=== PATIENT | female | born 1950 | race Caucasian/White ===

== ENCOUNTER → 2018-12-03 14:22 | Outpatient (CLI) | payer MEDICARE, MEDICAID ==
[~2018-12-03 14:22] MED LIST: ALBUTEROL SULF8.5 GM INH; ATIVAN2 MG PO; CYMBALTA60 MG PO; DIOVAN40 MG PO; GLUCOPHAGE500 MG PO; LEVAQUIN750 MG PO; MOBIC7.5 MG PO; NEURONTIN 300300 MG PO; NORVASC5 MG PO; OMEPRAZOLE20 M1 PO; ULTRAM50 MG PO
[2019-01-31 02:44] VITALS: BMI 35.1
== END | disposition home or self-care (01) ==
LOC: D.MRI 14:22 → EDBD 15:00 → D.CT 16:00
PROVIDERS: ATTEND Orthopaedic Surgery
DX: S42.301A Unspecified fracture of shaft of humerus, right arm, initial encounter for closed fracture (principal); M75.121 Complete rotator cuff tear or rupture of right shoulder, not specified as traumatic

== ENCOUNTER → 2018-12-19 08:55 | Outpatient (CLI) | payer MEDICARE, MEDICAID ==
--- NOTE | 2018-12-19 11:48 | NUR ---
TIME OUT ON RT [facility] WAS 1123AM
== END | disposition home or self-care (01) ==
LOC: D.RAD 08:55
PROVIDERS: ATTEND Orthopaedic Surgery
DX: M75.121 Complete rotator cuff tear or rupture of right shoulder, not specified as traumatic (principal)

== ENCOUNTER 2019-01-03 20:36 | Inpatient (IN) | payer MEDICARE, MEDICAID ==
[~2019-01-03] VITALS: Ht 162.6 cm; Wt 94.1 kg
[2019-01-03] MEDS ORDERED: NEURONTIN 300300 MG PO (20:49)
[2019-01-03] MEDS ORDERED: OMEPRAZOLE20 M1 PO (20:49)
[2019-01-03] MEDS ORDERED: MOBIC7.5 MG PO (20:49)
[2019-01-03] MEDS ORDERED: CYMBALTA60 MG PO (20:49)
[2019-01-03] MEDS ORDERED: ATIVAN2 MG PO (20:50)
[2019-01-03] MEDS ORDERED: DIOVAN40 MG PO (20:50)
[2019-01-03] MEDS ORDERED: GLUCOPHAGE500 MG PO (20:54)
[2019-01-03 21:05] LABS: BASOPHILS 0.1 % (0-2); EOSINOPHILS 0.1 % (0-7); HEMATOCRIT 34.7 % (36.0-48.0); HEMOGLOBIN 11.2 g/dL (12-16); IMMATURE GRANULOCYTES 0.6 % (0-5); LYMPHOCYTES 11.1 % (15-50); MCHC 32.3 g/dL (31.0-37.0); MCV 83.6 fL (80.0-100.0); MEAN PLATELET VOLUME 9.1 fL (7.4-10.4); MONOCYTES 7.4 % (2-11); NEUTROPHILS 80.7 % (40-80); PLATELET COUNT 289 10x3/uL (130-400); RBC 4.15 10x6/uL (4.00-5.40); RDW 16.2 % (11.5-14.5); WBC 19.4 10x3/uL (4.8-10.8)
[2019-01-03 21:13] LABS: PROTIME 12.7 SECONDS (11.6-15.0)
[2019-01-03 21:15] LABS: ALKALINE PHOSPHATASE 63 U/L (46-116); ALT (SGPT) 18 U/L (10-68); BILIRUBIN - TOTAL 0.46 mg/dL (0.2-1.3); CALC OSMOLALITY 267 mosm/kg (275-300); CALCIUM 9.1 mg/dL (8.5-10.1); CARBON DIOXIDE 26.6 mmol/L (21.0-32.0); CHLORIDE - SERUM 96 mmol/L (98-107); GLUCOSE 166 mg/dL (74-106); POTASSIUM - SERUM 4.2 mmol/L (3.5-5.1); PROTEIN - SERUM 6.9 g/dL (6.4-8.2); SODIUM 131 mmol/L (136-145); UREA NITROGEN 15 mg/dL (7-18); eGFR NON AFRICAN AMERICAN 59 mL/min (90-120)
[2019-01-03 21:26] LABS: CREATINE KINASE 41 UL (21-215); MAGNESIUM - SERUM 1.4 mg/dL (1.8-2.4); TROPONIN-I < 0.017 ng/mL (0.000-0.060)
--- NOTE | 2019-01-04 01:05 | NUR ---
ARIVED VIA WC TO 2103 AND TO BED LOW AND LOCKED CALL LIGHT PROVIDED DENIES CP AT THIS TIME CARDIACS WHERE NEG IV SALINE LOCK WITH LEVAQUIN HUNG WILL CONTINUE TO RUN LCTA SKIN WARM AND DRY PT STATES SHE IS A DM WITH NO INSULINE USAGE RN TO ASSESS....VS 121/55 89 18 100% ON 2L
[2019-01-04 03:31] VITALS: BP 120/77; Ht 162.6 cm; Wt 94.1 kg
[2019-01-04 04:00] VITALS: BP 136/75
--- NOTE | 2019-01-04 04:58 | NUR ---
ORTO VS LYING 99/56 87 97% SITTING 136/75 92 100% STANDING 104/64 98 99%
[2019-01-04 05:07] LABS: BASOPHILS 0.1 % (0-2); EOSINOPHILS 0.4 % (0-7); HEMATOCRIT 30.9 % (36.0-48.0); HEMOGLOBIN 9.9 g/dL (12-16); IMMATURE GRANULOCYTES 0.4 % (0-5); LYMPHOCYTES 13.8 % (15-50); MCV 84.2 fL (80.0-100.0); MEAN PLATELET VOLUME 9.3 fL (7.4-10.4); MONOCYTES 7.1 % (2-11); NEUTROPHILS 78.2 % (40-80); PLATELET COUNT 242 10x3/uL (130-400); RBC 3.67 10x6/uL (4.00-5.40); RDW 16.7 % (11.5-14.5)
[2019-01-04 05:52] LABS: CALC OSMOLALITY 272 mosm/kg (275-300); CALCIUM 8.7 mg/dL (8.5-10.1); CARBON DIOXIDE 29.4 mmol/L (21.0-32.0); CHLORIDE - SERUM 100 mmol/L (98-107); CKMB 1.2 U/L (0.0-3.6); CREATINE KINASE 36 UL (21-215); CREATININE - SERUM 0.7 mg/dL (0.6-1.3); GLUCOSE 100 mg/dL (74-106); MAGNESIUM - SERUM 1.6 mg/dL (1.8-2.4); PHOSPHOROUS 2.3 mg/dL (2.5-4.9); POTASSIUM - SERUM 3.9 mmol/L (3.5-5.1); SODIUM 136 mmol/L (136-145); TROPONIN-I < 0.017 ng/mL (0.000-0.060); UREA NITROGEN 16 mg/dL (7-18); eGFR NON AFRICAN AMERICAN 89 mL/min (90-120)
--- NOTE | 2019-01-04 06:42 | NUR ---
PT REFUSED SCD I ATTEMPTED TO EDUCATE PT TO GET UP AND AMBULATE AND SIT IN CHAIR IF NOT USING
[2019-01-04 08:38] VITALS: BP 99/73
[2019-01-04 12:08] LABS: CREATINE KINASE 28 UL (21-215); TROPONIN-I < 0.017 ng/mL (0.000-0.060)
[2019-01-04 12:20] VITALS: BP 120/76
[2019-01-04 16:56] VITALS: BP 129/60
--- NOTE | 2019-01-04 17:07 | NUR ---
PT REQUESTED ONLY 3 UNITS AFTER 290 BLOOD SUGAR SINCE SHE DOES NOT TYPICALLY USE INSULIN AND HAD JUST ATE WHEN I HAD TAKEN IT (THEY BROUGHT SUPPER EARLIER THAN USUAL). PT IS RESTING WITH HER , HAPPY AND NO COMPLAINTS. DRY COUGH NOTED. CL IN REACH, SRX2.
[2019-01-04 18:07] LABS: CKMB 0.7 U/L (0.0-3.6); CREATINE KINASE 22 UL (21-215)
[2019-01-04 18:08] LABS: TROPONIN-I < 0.017 ng/mL (0.000-0.060)
--- NOTE | 2019-01-04 18:15 | NUR ---
I have reviewed this patient and I concur with the Shift Assessment completed by the Licensed Practical Nurse today this shift.
--- NOTE | 2019-01-04 19:06 | NUR ---
GREETED PATIENT AND INTRODUCED MYSELF. PATIENT IS LAYING IN BED WATCHING TV. O2 AT 2L VIA NC. RESPIRATIONS EVEN. NO S/S OF DISTRESS. DENIES ANY NEEDS AT THIS TIME. REMINDED PT. THAT SHE WILL BE NPO AT MIDNITE AND WILL BE ABLE TO ONLY TAKE MEDICATIONS WITH A SIP OF WATER. PT. UNDERSTOOD TEACHING. CALL LIGHT IN REACH.
[2019-01-04 20:00] VITALS: BP 132/69
[2019-01-05] VITALS: BP 143/68
[2019-01-05 00:08] LABS: CKMB 0.4 U/L (0.0-3.6); CREATINE KINASE 20 UL (21-215)
[2019-01-05 00:09] LABS: TROPONIN-I < 0.017 ng/mL (0.000-0.060)
--- NOTE | 2019-01-05 02:22 | NUR ---
PATIENT RESTING QUIETLY IN SUPINE POSITION. HOB AT 30 DEGREES. O2 AT 2L IN USE VIA NC. RESPIRATIONS EVEN. NO S/S OF DISTRESS. SR UP X 2. BED IN LOWEST POSITION. CALL LIGHT IN REACH.
--- NOTE | 2019-01-05 02:41 | NUR ---
DC PERIPHERAL IV IN LEFT FOREARM. PATIENT TOLERATED PROCEDURE.
--- NOTE | 2019-01-05 02:52 | NUR ---
APPLIED ICE PACK AND ELEVATED LEFT ARM WHERE IV HAD INFILTRATED. PATIENT STATES THAT THE SITE DOESNT HURT ONLY ITCHES. WCTM.
--- NOTE | 2019-01-05 03:42 | NUR ---
NEW PERIPHERAL IV STARTED IN RIGHT UPPER CHEST. THIRD ATTEMPT SUCCESSFUL.
--- NOTE | 2019-01-05 03:42 | NUR ---
NEW PERIPHERAL IV STARTED IN LEFT UPPER CHEST. SUCCESSFUL ON THIRD ATTEMPT BY SKI BINDING FITTER AND REPAIRER. PATIENT TOLERATED PROCEDURE.
[2019-01-05 04:00] VITALS: BP 135/63
[2019-01-05 05:02] LABS: BASOPHILS 0.1 % (0-2); EOSINOPHILS 0.8 % (0-7); HEMATOCRIT 30.8 % (36.0-48.0); HEMOGLOBIN 9.7 g/dL (12-16); IMMATURE GRANULOCYTES 0.3 % (0-5); LYMPHOCYTES 13.8 % (15-50); MCHC 31.5 g/dL (31.0-37.0); MCV 85.8 fL (80.0-100.0); MEAN PLATELET VOLUME 9.4 fL (7.4-10.4); MONOCYTES 5.6 % (2-11); NEUTROPHILS 79.4 % (40-80); PLATELET COUNT 237 10x3/uL (130-400); RBC 3.59 10x6/uL (4.00-5.40); RDW 16.7 % (11.5-14.5); WBC 11.4 10x3/uL (4.8-10.8)
[2019-01-05 05:18] LABS: ALBUMIN 2.7 g/dL (3.4-5.0); ALKALINE PHOSPHATASE 62 U/L (46-116); BILIRUBIN - TOTAL 0.27 mg/dL (0.2-1.3); CALCIUM 8.7 mg/dL (8.5-10.1); CARBON DIOXIDE 29.3 mmol/L (21.0-32.0); CHLORIDE - SERUM 100 mmol/L (98-107); CREATININE - SERUM 0.6 mg/dL (0.6-1.3); GLUCOSE 135 mg/dL (74-106); MAGNESIUM - SERUM 1.6 mg/dL (1.8-2.4); PHOSPHOROUS 2.8 mg/dL (2.5-4.9); POTASSIUM - SERUM 4.1 mmol/L (3.5-5.1); PROTEIN - SERUM 6.6 g/dL (6.4-8.2); SODIUM 136 mmol/L (136-145); eGFR NON AFRICAN AMERICAN > 90 mL/min (90-120)
[2019-01-05 05:21] LABS: ALT (SGPT) 26 U/L (10-68); CALC OSMOLALITY 272 mosm/kg (275-300); UREA NITROGEN 11 mg/dL (7-18)
--- NOTE | 2019-01-05 06:25 | NUR ---
PATIENT AWAKE AND RESTING QUIETLY IN BED. DENIES ANY NEEDS AT THIS TIME. CALL LIGHT IN REACH.
[2019-01-05 08:20] VITALS: BP 155/96
--- NOTE | 2019-01-05 14:21 | NUR ---
I have reviewed this patient and I concur with the Shift Assessment completed by the Licensed Practical Nurse today this shift.
[2019-01-05 16:45] VITALS: BP 153/75
[2019-01-05 18:18] LABS: % SATURATION 5 % (15-55); IRON 22 ug/dl (35-150); TOTAL IRON BIND CAPACITY 388 ug/dl (260-445); UNSAT IRON BIND CAPACITY 366 ug/dl (150-375)
--- NOTE | 2019-01-05 18:40 | NUR ---
PT WAS UPSET TAHT CARDIOLOGY HAD NOT READ/INTERPRETED HER RESULTS YET FROM [facility] STRESS TEST. I EXPLAINED THE SITUATION AND SHE FEELS BETTER NOW. UNDERSTANDS SHE WILL LIKELY LEAVE TOMORROW. PT IS HAPPY AND CURRENTLY RESTING IN BED. NO COMPLAINTS/CONCERNS/QUESTIONS AT THIS TIME. CL IN REACH, SRX2
--- NOTE | 2019-01-05 19:45 | NUR ---
REPORT RECIEVED AND ROUNDING COMPLETE. PATIENT LAYING IN BED WATCH TV. PATIENT HAS A LEFT CHEST PIV THAT IS SALINE LOCKED. DRESSING C/D/I AND SWAP CAP IN PLACE. PATIENT STATES SHE HAS NO NEEDS AT THIS TIME. CALL LIGHT WITHIN REACH AND BED IN LOWEST POSITION. PATIENT IS SHOWING NO S/SX OF DISTRESS AT THIS TIME.
[2019-01-05 20:00] VITALS: BP 151/84
[2019-01-06] VITALS: BP 154/89; BP 163/88
--- NOTE | 2019-01-06 02:25 | NUR ---
PATIENT LAYING IN BED IN SUPINE POSITION LOOKING AT HER CELL PHONE. PATIENT STATES NO NEEDS AT THIS TIME. CALL LIGHT WITHIN REACH.
--- NOTE | 2019-01-06 03:36 | NUR ---
I have reviewed this patient and I concur with the Shift Assessment completed by the Licensed Practical Nurse today this shift.
[2019-01-06 05:06] LABS: BASOPHILS 0.2 % (0-2); EOSINOPHILS 2.3 % (0-7); HEMATOCRIT 31.9 % (36.0-48.0); HEMOGLOBIN 9.7 g/dL (12-16); IMMATURE GRANULOCYTES 0.2 % (0-5); LYMPHOCYTES 19.8 % (15-50); MCH 26.3 pg (26.0-34.0); MCHC 30.4 g/dL (31.0-37.0); MCV 86.4 fL (80.0-100.0); MEAN PLATELET VOLUME 9.1 fL (7.4-10.4); MONOCYTES 6.9 % (2-11); NEUTROPHILS 70.6 % (40-80); PLATELET COUNT 233 10x3/uL (130-400); RBC 3.69 10x6/uL (4.00-5.40); RDW 16.7 % (11.5-14.5)
[2019-01-06 05:21] LABS: ALBUMIN 2.7 g/dL (3.4-5.0); ALKALINE PHOSPHATASE 65 U/L (46-116); ALT (SGPT) 23 U/L (10-68); BILIRUBIN - TOTAL 0.24 mg/dL (0.2-1.3); CALC OSMOLALITY 275 mosm/kg (275-300); CALCIUM 8.6 mg/dL (8.5-10.1); CARBON DIOXIDE 29.9 mmol/L (21.0-32.0); CHLORIDE - SERUM 102 mmol/L (98-107); CREATININE - SERUM 0.6 mg/dL (0.6-1.3); GLUCOSE 125 mg/dL (74-106); MAGNESIUM - SERUM 1.8 mg/dL (1.8-2.4); POTASSIUM - SERUM 4.3 mmol/L (3.5-5.1); PROTEIN - SERUM 6.6 g/dL (6.4-8.2); SODIUM 137 mmol/L (136-145); eGFR NON AFRICAN AMERICAN > 90 mL/min (90-120)
[2019-01-06 05:25] LABS: PHOSPHOROUS 3.7 mg/dL (2.5-4.9); UREA NITROGEN 14 mg/dL (7-18)
--- NOTE | 2019-01-06 07:17 | NUR ---
PT ASLEEP, DID NOT WAKE I ENTERED, DID NOT FURTHER DISTURB AT THIS TIME. CL IN REACH, SRX2. NO FAMILY AT BEDSIDE AT THS TIME, SAID HE'D BE BACK LATER.
[2019-01-06 08:44] VITALS: BP 138/78
[2019-01-06] MEDS ORDERED: LEVAQUIN750 MG PO (10:33)
[2019-01-06] MEDS ORDERED: ALBUTEROL SULF8.5 GM INH (10:35)
--- NOTE | 2019-01-06 11:39 | NUR ---
I/V OUT TIP INTACT
--- NOTE | 2019-01-06 12:00 | NUR ---
I have reviewed this patient and I concur with the Shift Assessment completed by the Licensed Practical Nurse today this shift.
--- NOTE | 2019-01-06 12:19 | NUR ---
PT ESCORTED OUT VIA WHEELCHAIR TO HUSBANDS POV.
--- NOTE | 2019-01-07 08:27 | MORECARE ---
CASE MANAGEMENT DISCHARGE SUMMARY PATIENT: THAI MOREIRA UNIT: [id number] ADM DATE: 01/04/19 AGE: 68 : 52 SEX: F ROOM/BED: D.2104 AUTHOR: CLAIRE JACQUES PHYSICIAN: REFERRING PHYSICIAN: ULISES BENTLEY MD DATE OF SERVICE: 01/07/19 Discharge Plan Patient Name: THAI MOREIRA Facility: [facility]:[place] : 1950 Planned Disposition: Home Anticipated Discharge Date: 01/06/19 Discharge Date: 01/06/2019 Expected LOS: 2 Initial Reviewer: [email or web address] Initial Review Date: 01/07/2019 Generated: 01/07/19 9:27 am Coverage Notice Reviewer: [email or web address] [employer] Notice Issued Date-Time: 01/06/2019 11:00 Notice Type: IM Discharge Notice Notice Delivered To: Patient Relationship to Patient: Self Guard Range Name: Delivery Method: HAND - Hand Delivered Susan Days: Prior Verbal Notification: Recipient Understood Notice: Yes Recipient Signature: Yes Med Rec Note Co-signed by Attending: Coverage Notice Comment: Patient Name: THAI MOREIRA Page [phone] at 0827 All edits/amendments must be made on the electronic document DICTATION DATE: 01/07/19825 ACCOUNTS PAYABLE REPRESENTATIVE: BRITTANY 01/07/19825 RPT#: [id number] DC DATE:01/06/19 STATUS: DIS IN [facility] [address] [place] [address] END OF REPORT
--- NOTE | 2019-01-07 18:38 | CN ---
PATIENT NAME:THAI DYSON MEDICAL RECORD: [id number] : 54 LOCATION:D. D.2104 ADMIT DATE: 01/04/19 ACCOUNT: [id number] CONSULTING PHYSICIAN: OSEI PROCTOR MD REFERRING PHYSICIAN: ULISES BENTLEY MD DATE OF CONSULTATION: 01/04/2019 ADMITTING DIAGNOSES: 1. Chest pain compatible with angina. 2. Shortness of breath. 3. Hypertension. 4. Noninsulin dependent diabetes. 5. Obesity. HISTORY OF PRESENT ILLNESS: Mrs. Dyson presents with 2 weeks of increasing chest pain and shortness of breath. Initially, she was felt to have pneumonia; however, Pulmonary does not think that this is an infectious process. Her chest discomfort is a pretty classic anginal discomfort, heaviness across the anterior chest. No real radiation, worse in the morning, actually improved some during the day. Her troponins are normal. Her EKG is with no significant ST-T abnormalities. She does have a family history of coronary artery disease. PHYSICAL EXAMINATION: GENERAL APPEARANCE: Well-nourished, well-developed, appears stated age. Level of distress, comfortable. PSYCHIATRIC: Mental status, alert, normal affect. Orientation, oriented to time, place and person. EYES: Lids and conjunctiva, noninjected. No discharge, no pallor. ENT: Lips, teeth, gums, normal dentition. Oropharynx, no cyanosis, no pallor. NECK: Carotid arteries, bilateral normal upstroke, no bruits, no thrills. JUGULAR VEINS: No jugular venous pressure or distention. CERVICAL LYMPH NODES: Nontender, nonenlarged. THYROID: Not enlarged. Nontender. No nodules. LUNGS: Respiratory effort, unlabored. CHEST: Normal curvature. No thoracic deformity. No chest wall tenderness. Percussion, resonant. Auscultation, clear. No wheezes, no rales, no rhonchi. CARDIOVASCULAR: Precordial exam, nondisplaced. No heaves or pericardial thrills. Rate and rhythm, regular. Heart sounds, normal S1, normal S2. No S3, no gallop, no rub. Systolic murmur, not heard. Diastolic murmur, not heard. EXTREMITIES: No cyanosis, no edema. Peripheral pulses, full and equal in all extremities, except as noted. No bruits appreciated. ABDOMEN: Soft, nondistended. Normal aorta. No bruit. Nontender. No masses. Liver, nontender, no hepatomegaly. Spleen, nontender, no splenomegaly. MUSCULOSKELETAL: No joint tenderness. No joint swelling. No erythema. NEUROLOGICAL: Normal gait, normal strength, normal tone. SKIN: Warm and dry. OVERALL IMPRESSION: Chest discomfort in an escalating fashion. We will risk stratify with stress testing Cardiolite imaging. Further care depends upon findings of the stress test. TRANSINT:[id number] Voice Confirmation ID: [id number] DOCUMENT ID: [id number] CONSULT REPORT [id number] THAI DYSON, OSEI ELIZONDO at 1838 CC: [id number] DICTATION DATE: 01/04/19 1217 COMPUTER DRAFTER: 01/04/19 1250 DIS IN 01/06/19 [facility] [address] [place] [address]
[2019-01-28] MEDS ORDERED: NORVASC5 MG PO (14:58)
[2019-01-28] MEDS ORDERED: ULTRAM50 MG PO (14:58)
== END 2019-01-06 12:19 | disposition home or self-care (01) | DRG 194 ==
LOC: D.ER 20:36 → D.M2 01-04 00:08
PROVIDERS: Emergency Medicine; Family Medicine Adult Medicine; ADMIT Family Medicine; ATTEND Family Medicine
DX: J18.1 Lobar pneumonia, unspecified organism (principal); I20.0 Unstable angina; E87.1 Hypo-osmolality and hyponatremia; E11.65 Type 2 diabetes mellitus with hyperglycemia; I10 Essential (primary) hypertension; D64.9 Anemia, unspecified; E66.01 Morbid (severe) obesity due to excess calories; Z68.35 Body mass index [BMI] 35.0-35.9, adult

== ENCOUNTER → 2019-01-10 15:22 | Outpatient (CLI) | payer MEDICARE, MEDICAID ==
[2019-01-04 03:31] VITALS: BMI 35.8
[~2019-01-10 15:22] MED LIST changes: -NORVASC5 MG PO; -ULTRAM50 MG PO
[2019-01-10 15:39] LABS: BASOPHILS 0.6 % (0-2); EOSINOPHILS 1.2 % (0-7); HEMATOCRIT 36.9 % (36.0-48.0); IMMATURE GRANULOCYTES 0.4 % (0-5); LYMPHOCYTES 24.8 % (15-50); MCHC 32.5 g/dL (31.0-37.0); MCV 82.9 fL (80.0-100.0); MEAN PLATELET VOLUME 8.9 fL (7.4-10.4); MONOCYTES 12.2 % (2-11); NEUTROPHILS 60.8 % (40-80); RBC 4.45 10x6/uL (4.00-5.40); RDW 16.4 % (11.5-14.5); WBC 6.7 10x3/uL (4.8-10.8)
[2019-01-10 15:51] LABS: PLATELET COUNT 307 10x3/uL (130-400)
== END | disposition home or self-care (01) ==
LOC: D.LAB 15:22
PROVIDERS: ATTEND Family Medicine
DX: J18.9 Pneumonia, unspecified organism (principal)

== ENCOUNTER 2019-01-30 10:25 | Day surgery (SDC) | payer MEDICARE, MEDICAID ==
[2019-01-28 15:25] LABS: BASOPHILS 0.5 % (0-2); EOSINOPHILS 1.6 % (0-7); HEMATOCRIT 35.9 % (36.0-48.0); HEMOGLOBIN 11.3 g/dL (12-16); IMMATURE GRANULOCYTES 0.4 % (0-5); LYMPHOCYTES 23.7 % (15-50); MCH 27.4 pg (26.0-34.0); MCHC 31.5 g/dL (31.0-37.0); MCV 87.1 fL (80.0-100.0); MEAN PLATELET VOLUME 9.4 fL (7.4-10.4); MONOCYTES 9.6 % (2-11); NEUTROPHILS 64.2 % (40-80); PLATELET COUNT 268 10x3/uL (130-400); RBC 4.12 10x6/uL (4.00-5.40); RDW 17.6 % (11.5-14.5); WBC 8.3 10x3/uL (4.8-10.8)
[2019-01-28 16:11] LABS: CALC OSMOLALITY 274 mosm/kg (275-300); CALCIUM 9.2 mg/dL (8.5-10.1); CARBON DIOXIDE 28.6 mmol/L (21.0-32.0); CHLORIDE - SERUM 99 mmol/L (98-107); CREATININE - SERUM 0.7 mg/dL (0.6-1.3); GLUCOSE 126 mg/dL (74-106); SODIUM 137 mmol/L (136-145); UREA NITROGEN 10 mg/dL (7-18); eGFR NON AFRICAN AMERICAN 89 mL/min (90-120)
[~2019-01-30] VITALS: Ht 162.6 cm; Wt 92.7 kg
[~2019-01-30 10:25] MED LIST changes: +NORVASC5 MG PO; +ULTRAM50 MG PO
[2019-01-30 10:49] VITALS: BP 131/66; BMI 35.2
--- NOTE | 2019-01-30 17:23 | NUR ---
1725 PT UP TO BATHROOM WITH ASSIST. VOIDED ON TOILET. BACK IN BED AND O2 SAT 80% RESP CALLED FOR TREATMENT
--- NOTE | 2019-01-30 17:28 | NUR ---
1730 RESP HERE TO GIVE TREATMENT
--- NOTE | 2019-01-30 18:31 | NUR ---
1830 PT UP TO BATHROOM PCXR DONE AND TOLERATED WELL
--- NOTE | 2019-01-30 18:44 | NUR ---
1845 REPORT GIVEN KITTY
--- NOTE | 2019-01-30 19:07 | NUR ---
1814 DR HA NOTIFIED IN OR THAT PT UNABLE TO MAINTAIN O2 SAT ON RA. EVEN AFTER RESP TX. ORDERS TO ADMIT PT TO HOSPITALIST METALLURGY LABORATORY TECHNICIAN. SPOKE WITH DR ALVARES AND SAID TO GET A PCXR AND TRANSFER TO ROOM ON MED SURGERY AND HE WILL WRITE ORDERS. PT TRANSFERED AFTER REPORT GIVEN TO JOSE ON 2 LITERS NC. SMALL AMT OF DRAINAGE NOTED MARKED AND NOTIFIED JOSE. SLING MAINTAINED AND POST OP INSTRUCTIONS GIVEN TO FRIEND AND PT.
--- NOTE | 2019-01-30 20:10 | NUR ---
AROUSES EASILY TO VERBAL STIMULT. ALERT.ORIENTED.NO COMPLAINTS VOICED. RESP UNLABORED. O2 @ 2L PER NC ON. DRESSING TO RIGHT SHOULDER WITH DRAINAGE NOTED. ICE PACK ON. SLING INTACT. CL IN REACH
--- NOTE | 2019-01-30 21:57 | NUR ---
IV INFILTRATED TO LEFT WRIST. REMOVED WITH TIP INTACT. PATIENT REFUSES TO HAVE ANOTHER ONE STARTED. STATES GOING HOME IN THE MORNING ANYWAY. REQUEST PERLA HOSE BE REMOVED AND SCD'S NOT BE APPLIED DUE TO PTSD.CL IN REACH
[2019-01-30 22:44] VITALS: BP 146/50
[2019-01-31 02:44] VITALS: BP 146/50; Ht 162.6 cm; Wt 92.7 kg
--- NOTE | 2019-01-31 04:40 | NUR ---
I have reviewed this patient and I concur with the Shift Assessment completed by the Licensed Practical Nurse today this shift.
[2019-01-31 05:04] VITALS: BP 131/80
[2019-01-31 05:14] LABS: BASOPHILS 0 % (0-2); EOSINOPHILS 0 % (0-7); HEMOGLOBIN 9.6 g/dL (12-16); IMMATURE GRANULOCYTES 0.2 % (0-5); LYMPHOCYTES 11.9 % (15-50); MCV 87.3 fL (80.0-100.0); MEAN PLATELET VOLUME 9.4 fL (7.4-10.4); NEUTROPHILS 79.9 % (40-80); PLATELET COUNT 259 10x3/uL (130-400); RBC 3.55 10x6/uL (4.00-5.40); RDW 17.9 % (11.5-14.5)
[2019-01-31 05:29] LABS: CALC OSMOLALITY 277 mosm/kg (275-300); CALCIUM 7.6 mg/dL (8.5-10.1); CARBON DIOXIDE 28.7 mmol/L (21.0-32.0); CHLORIDE - SERUM 101 mmol/L (98-107); CREATININE - SERUM 0.5 mg/dL (0.6-1.3); GLUCOSE 165 mg/dL (74-106); MAGNESIUM - SERUM 1.7 mg/dL (1.8-2.4); PHOSPHOROUS 2.7 mg/dL (2.5-4.9); POTASSIUM - SERUM 4.7 mmol/L (3.5-5.1); SODIUM 138 mmol/L (136-145); UREA NITROGEN 7 mg/dL (7-18); eGFR NON AFRICAN AMERICAN > 90 mL/min (90-120)
--- NOTE | 2019-01-31 07:52 | NUR ---
ALERT AND ORIENTED. LUNGS CLEAR BILATERALLY IN ALL [place]. HEART SOUNDS S1 AND S2 HEARD IN ALL [place]. BOWEL SOUNDS ACTIVE X 4. DRSG INTACT TO RIGHT SHOULDER. SKIN INTACT WITHOUT REDNESS. NO IV. INFILTRATED LAST NIGHT. DOES NOT WANT NEW IV D/T POSSIBLE D/C TODAY. DENIES PAIN. DENIES NEEDS. BED LOW. CALL VERNON AND PERSONAL ITEMS IN REACH. WILL CONTINUE TO MONITOR.
[2019-01-31 09:37] VITALS: BP 135/67
--- NOTE | 2019-01-31 11:27 | NUR ---
RESTING IN BED. DENIES PAIN. DENIES NEEDS. WILL CONTINUE TO MONITOR.
[2019-01-31 13:07] VITALS: BP 117/53
--- NOTE | 2019-01-31 14:25 | NUR ---
DISCHARGE EDUCATION PROVIDED BOTH WRITTEN AND VERBAL. VERBALIZED UNDERSTANDING. DENIES FURTHER QUESTIONS. NO IV TO REMOVE. EDUCATION PROVIDED ON NEED TO CHANGE DRSG IN THREE DAYS TO RIGHT SHOULDER. NEW DRSG PROVIDED. DENIES FURTHER NEEDS. DISCHARGED HOME WITH WITH ALL BELONGINGS.
== END 2019-01-31 14:28 | disposition home or self-care (01) ==
LOC: D.MS 10:25 → D.OPS 10:25 → D.PAN 12:45 → D.OPS 12:45 → D.MS 18:47 → D.OPS 01-31 14:28
PROVIDERS: Family Medicine; ATTEND Orthopaedic Surgery
DX: M65.811 Other synovitis and tenosynovitis, right shoulder (principal); M13.811 Other specified arthritis, right shoulder; M75.41 Impingement syndrome of right shoulder; M75.111 Incomplete rotator cuff tear or rupture of right shoulder, not specified as traumatic; S43.431A Superior glenoid labrum lesion of right shoulder, initial encounter; X58.XXXA Exposure to other specified factors, initial encounter

== ENCOUNTER → 2019-04-01 15:07 | Outpatient (CLI) | payer MEDICARE, MEDICAID ==
[2019-01-31 02:44] VITALS: BMI 35.1
[~2019-04-01 15:07] MED LIST changes: +ATIVAN1 MG PO; +CELEXA20 MG PO; +FOLIC ACID1 MG PO; +FUROSEMIDE20 MG PO; +HYDROCODONE-A1 UDTA2 PO; +LISINOPRIL-HCT1 EAC7 PO
== END | disposition home or self-care (01) ==
LOC: D.US 15:00
PROVIDERS: ATTEND Orthopaedic Surgery
DX: M25.562 Pain in left knee (principal)

== ENCOUNTER → 2019-04-01 15:08 | Outpatient (CLI) | payer MEDICARE, MEDICAID ==
[2019-01-31 02:44] VITALS: BMI 35.1
[2019-04-01 16:12] LABS: BASOPHILS 0.3 % (0-2); EOSINOPHILS 0.7 % (0-7); HEMATOCRIT 32.7 % (36.0-48.0); HEMOGLOBIN 9.9 g/dL (12-16); IMMATURE GRANULOCYTES 0.3 % (0-5); LYMPHOCYTES 16.1 % (15-50); MCH 25.7 pg (26.0-34.0); MCHC 30.3 g/dL (31.0-37.0); MCV 84.9 fL (80.0-100.0); MEAN PLATELET VOLUME 8.8 fL (7.4-10.4); MONOCYTES 7.5 % (2-11); NEUTROPHILS 75.1 % (40-80); RBC 3.85 10x6/uL (4.00-5.40); RDW 17.7 % (11.5-14.5); WBC 11.8 10x3/uL (4.8-10.8)
[2019-04-01 16:28] LABS: PLATELET COUNT 322 10x3/uL (130-400)
[2019-04-01 18:10] LABS: ERYTHROCYTE SEDIMENTATION RATE 15 mm/hr (0-30)
[2019-04-01 18:58] LABS: NEUT - BF 53 %
[2019-04-01 18:59] LABS: EOS BF 2 %; MACROPHAGES BF 9 %; MESOTHELIALS BF 1 %
== END | disposition home or self-care (01) ==
LOC: D.LABREF 15:08
PROVIDERS: ATTEND Orthopaedic Surgery
DX: M25.562 Pain in left knee (principal)

== ENCOUNTER → 2019-04-11 13:39 | Outpatient (CLI) | payer MEDICARE, MEDICAID ==
[2019-01-31 02:44] VITALS: BMI 35.1
== END | disposition home or self-care (01) ==
LOC: D.MRI 13:39
PROVIDERS: ATTEND Orthopaedic Surgery
DX: M25.562 Pain in left knee (principal)

== ENCOUNTER 2019-05-08 05:27 | Inpatient (IN) | payer MEDICARE, MEDICAID ==
[2019-05-03 09:52] LABS: BASOPHILS 0.4 % (0-2); EOSINOPHILS 1.3 % (0-7); HEMATOCRIT 41.9 % (36.0-48.0); IMMATURE GRANULOCYTES 0.5 % (0-5); LYMPHOCYTES 26.9 % (15-50); MCH 28.3 pg (26.0-34.0); MCV 91.1 fL (80.0-100.0); MEAN PLATELET VOLUME 9.6 fL (7.4-10.4); MONOCYTES 9.1 % (2-11); NEUTROPHILS 61.8 % (40-80); PLATELET COUNT 286 10x3/uL (130-400); RDW 18.9 % (11.5-14.5); WBC 8.5 10x3/uL (4.8-10.8)
[2019-05-03 10:12] LABS: CALC OSMOLALITY 269 mosm/kg (275-300); CALCIUM 9.6 mg/dL (8.5-10.1); CARBON DIOXIDE 29.7 mmol/L (21.0-32.0); CHLORIDE - SERUM 99 mmol/L (98-107); CREATININE - SERUM 0.8 mg/dL (0.6-1.3); GLUCOSE 120 mg/dL (74-106); SODIUM 135 mmol/L (136-145); UREA NITROGEN 10 mg/dL (7-18); eGFR NON AFRICAN AMERICAN 76 mL/min (90-120)
[2019-05-08] VITALS (17 sets, daily range): BP systolic 76–154; BP diastolic 45–89; Ht 162.6 cm; Wt 94.1 kg
[~2019-05-08] VITALS: Ht 162.6 cm; Wt 94.1 kg
[~2019-05-08 05:27] MED LIST changes: -FOLIC ACID1 MG PO; -HYDROCODONE-A1 UDTA2 PO
--- NOTE | 2019-05-08 10:03 | NUR ---
9784 DR CAMERON HERE TO EVALUATE LOW SBP. ORDERS FOR FLUID CHALLENGE RECIEVED.
--- NOTE | 2019-05-08 10:16 | NUR ---
TOLERATED FLUID BOLUS WELL SBP >100 MEETS ANESTHESIA DISCHARGE CRITERIA
--- NOTE | 2019-05-08 11:00 | NUR ---
PATIENT BP DROPPING DOWN. BP WHEN PATIENT GOT HERE 85/60. WAS TOLD THAT SHE RECIEVED FLUID BOLUS IN RR. WILL CONTINUE TO MONITOR.
--- NOTE | 2019-05-08 11:30 | NUR ---
PATIENT RESTING QUIETLY, NO COMPLAINTS. IV INTACT. BP STILL LOW. WILL CONTINUE TO MONITOR.
--- NOTE | 2019-05-08 12:30 | NUR ---
CALLED GANESH WITH ANESTHESIA. STATED HE WAS BUSY IN A CASE AT THIS TIME TO CALL DR. CAMERON AND HE MAY COME SEE HER.
--- NOTE | 2019-05-08 12:45 | NUR ---
SPOKE WITH DR. CAMERON AT THIS TIME ABOUT PATIENTS PRESSURE 75/45. STATED TO GIVE A 500 CC BOLUS AND TO CALL DR. HA TO SEE WHAT HE WANTED TO DO.
--- NOTE | 2019-05-08 12:50 | NUR ---
PAGED DR. HA. STARTED BOLUS. NOTIFIED NURSE TEAMSITE DEVELOPER SERG OF BP. BP 88/49. WILL CONTINUE TO MONITOR.
--- NOTE | 2019-05-08 14:30 | NUR ---
SPOKE WITH DR. HA. NEW ORDERS RECIEVED AND CARRIED OUT. PATIENT IN BED WITH EYES CLOSED RESTING QUIETLY. NO DISTRESS. CALL LIGHT WITHIN REACH. BSCDS ON AND WORKING.
[2019-05-08 16:09] LABS: BASOPHILS 0.2 % (0-2); EOSINOPHILS 0.2 % (0-7); HEMATOCRIT 32.5 % (36.0-48.0); HEMOGLOBIN 9.8 g/dL (12-16); IMMATURE GRANULOCYTES 0.4 % (0-5); LYMPHOCYTES 11.8 % (15-50); MCH 28.2 pg (26.0-34.0); MCHC 30.2 g/dL (31.0-37.0); MCV 93.7 fL (80.0-100.0); MEAN PLATELET VOLUME 9.7 fL (7.4-10.4); MONOCYTES 7.9 % (2-11); NEUTROPHILS 79.5 % (40-80); PLATELET COUNT 287 10x3/uL (130-400); RBC 3.47 10x6/uL (4.00-5.40); RDW 20.2 % (11.5-14.5); WBC 11.6 10x3/uL (4.8-10.8)
[2019-05-08 16:55] LABS: ALBUMIN 2.9 g/dL (3.4-5.0); ANION GAP 15.3 mmol/L (8-16); BILIRUBIN - TOTAL 0.18 mg/dL (0.2-1.3); CALCIUM 7.9 mg/dL (8.5-10.1); CARBON DIOXIDE 24.9 mmol/L (21.0-32.0); CREATININE - SERUM 1.6 mg/dL (0.6-1.3); POTASSIUM - SERUM 5.2 mmol/L (3.5-5.1); PROTEIN - SERUM 5.8 g/dL (6.4-8.2)
--- NOTE | 2019-05-08 18:50 | NUR ---
PATIENT IN BED WITH IV INTACT. NO COMPLAINTS OR SIGNS OF DISTRESS. BSCDS ON AND WORKING. BA ON. CALL LIGHT WITHIN REACH.
--- NOTE | 2019-05-08 22:00 | NUR ---
A&O X 4. DRESSINGTO LEFT KNEE C/D/I. HEMOVAC COMPRESSED. PT REPORTS PAIN OF 6/10. DENIES FURTHER NEEDS, WILL CONTINUE TO MONITOR.
[2019-05-09 00:30] VITALS: BP 102/48
--- NOTE | 2019-05-09 04:08 | NUR ---
I have reviewed this patient and I concur with the Shift Assessment completed by the Licensed Practical Nurse today this shift.
[2019-05-09 04:30] VITALS: BP 98/54
[2019-05-09 07:02] LABS: APPEARANCE CLEAR (CLEAR); BILIRUBIN NEGATIVE (NEGATIVE); COLOR YELLOW (YELLOW); GLUCOSE NEGATIVE (NEGATIVE); KETONE NEGATIVE (NEGATIVE); NITRITE NEGATIVE (NEGATIVE); PROTEIN NEGATIVE (NEGATIVE); UROBILINOGEN NORMAL (NORMAL)
[2019-05-09 07:45] LABS: BASOPHILS 0.3 % (0-2); EOSINOPHILS 0.8 % (0-7); HEMATOCRIT 28.2 % (36.0-48.0); HEMOGLOBIN 8.4 g/dL (12-16); IMMATURE GRANULOCYTES 0.3 % (0-5); MCHC 29.8 g/dL (31.0-37.0); MEAN PLATELET VOLUME 9.6 fL (7.4-10.4); NEUTROPHILS 65.6 % (40-80); PLATELET COUNT 252 10x3/uL (130-400); RDW 20.1 % (11.5-14.5)
[2019-05-09 07:46] LABS: WBC 7.5 10x3/uL (4.8-10.8)
[2019-05-09 08:00] LABS: ALBUMIN 2.8 g/dL (3.4-5.0); ANION GAP 9.6 mmol/L (8-16); BILIRUBIN - TOTAL 0.29 mg/dL (0.2-1.3); CALCIUM 7.7 mg/dL (8.5-10.1); CARBON DIOXIDE 28.7 mmol/L (21.0-32.0); POTASSIUM - SERUM 4.3 mmol/L (3.5-5.1); PROTEIN - SERUM 5.8 g/dL (6.4-8.2)
[2019-05-09 09:02] VITALS: BP 108/48
[2019-05-09 13:07] VITALS: BP 112/39
--- NOTE | 2019-05-09 14:35 | NUR ---
PT C/O LEFT KNEE PAIN RATING 4/10 ON PAIN SCALE. MEDICATED WITH NORCO AT THIS TIME. C/L IN REACH AT BEDSIDE.
--- NOTE | 2019-05-09 15:23 | NUR ---
I have reviewed this patient and I concur with the Shift Assessment completed by the Licensed Practical Nurse today this shift.
[2019-05-09 16:45] VITALS: BP 100/56
[2019-05-09 19:30] VITALS: BP 102/51
[2019-05-10 01:03] VITALS: BP 133/62
[2019-05-10 04:00] VITALS: BP 132/70
[2019-05-10 06:58] LABS: BASOPHILS 0.4 % (0-2); EOSINOPHILS 2.3 % (0-7); HEMATOCRIT 27.3 % (36.0-48.0); HEMOGLOBIN 8.3 g/dL (12-16); IMMATURE GRANULOCYTES 0.3 % (0-5); LYMPHOCYTES 32.3 % (15-50); MCH 28.2 pg (26.0-34.0); MCHC 30.4 g/dL (31.0-37.0); MCV 92.9 fL (80.0-100.0); MEAN PLATELET VOLUME 9.1 fL (7.4-10.4); MONOCYTES 10.1 % (2-11); NEUTROPHILS 54.6 % (40-80); PLATELET COUNT 218 10x3/uL (130-400); RBC 2.94 10x6/uL (4.00-5.40); RDW 19.7 % (11.5-14.5); WBC 7.3 10x3/uL (4.8-10.8)
[2019-05-10 07:10] LABS: ALBUMIN 2.9 g/dL (3.4-5.0); ALKALINE PHOSPHATASE 60 U/L (46-116); ALT (SGPT) 25 U/L (10-68); BILIRUBIN - TOTAL 0.37 mg/dL (0.2-1.3); CALC OSMOLALITY 275 mosm/kg (275-300); CALCIUM 8.5 mg/dL (8.5-10.1); CARBON DIOXIDE 28.3 mmol/L (21.0-32.0); CHLORIDE - SERUM 104 mmol/L (98-107); CREATININE - SERUM 0.6 mg/dL (0.6-1.3); GLUCOSE 136 mg/dL (74-106); POTASSIUM - SERUM 4.5 mmol/L (3.5-5.1); PROTEIN - SERUM 6.5 g/dL (6.4-8.2); SODIUM 138 mmol/L (136-145); UREA NITROGEN 8 mg/dL (7-18); eGFR NON AFRICAN AMERICAN > 90 mL/min (90-120)
[2019-05-10 07:55] VITALS: BP 130/55
--- NOTE | 2019-05-10 10:39 | NUR ---
RIGHT IJ DCD ORDERED WITH CATH TIP INTACT
[2019-05-10 12:49] VITALS: BP 162/66
--- NOTE | 2019-05-10 13:04 | MORECARE ---
CASE MANAGEMENT DISCHARGE SUMMARY PATIENT: THAI MOREIRA UNIT: [id number] ADM DATE: 05/08/19 AGE: 69 : 52 SEX: F ROOM/BED: D.2225 AUTHOR: CLAIRE JACQUES PHYSICIAN: REFERRING PHYSICIAN: BRODIE HA MD DATE OF SERVICE: 05/10/19 Discharge Plan Patient Name: THAI MOREIRA Facility: [facility]:[place] : 1950 Planned Disposition: Home Anticipated Discharge Date: 05/10/19 Discharge Date: Expected LOS: 2 Initial Reviewer: [email or web address] Initial Review Date: 05/10/2019 Generated: 05/10/19 2:03 pm Patient Name: THAI MOREIRA Page [id number] at 1304 All edits/amendments must be made on the electronic document DICTATION DATE: 05/10/19 1303 MATERIAL CARRIER: BRITTANY 05/10/19 1303 RPT#: [id number] DC DATE: STATUS: ADM IN [facility] [address] [place] [address] END OF REPORT
--- NOTE | 2019-05-10 13:12 | MORECARE ---
CASE MANAGEMENT DISCHARGE SUMMARY PATIENT: THAI MOREIRA UNIT: [id number] ADM DATE: 05/08/19 AGE: 69 : 52 SEX: F ROOM/BED: D.2225 AUTHOR: CLAIRE JACQUES PHYSICIAN: REFERRING PHYSICIAN: BRODIE HA MD DATE OF SERVICE: 05/10/19 Discharge Plan Patient Name: THAI MOREIRA [facility] : 1950 Planned Disposition: Home Anticipated Discharge Date: 05/10/19 Discharge Date: Expected LOS: 2 Initial Reviewer: [email or web address] Initial Review Date: 05/10/2019 Generated: 05/10/19 2:11 pm DCPIA - Discharge Planning Initial Assessment Updated by [email or web address]: Tayler Rouse on 05/10/19 1:04 pm * Is the patient Alert and Oriented? Yes * How many steps to enter\exit or inside your home? 1/0 * PCP Dr. Joseph Jansen * [facility] * Preadmission Environment Home with Family * ADLs Independent * Equipment None * List name and contact numbers for known caregivers / representatives who currently or will assist patient after discharge: Yudi Hickman - [facility] - [phone] * Verbal permission to speak to the caregivers and representatives has been obtained from the patient. Yes * Community resources currently utilized None * Additional services required to return to the preadmission environment? No * Can the patient safely return to the preadmission environment? Yes * Has this patient been hospitalized within the prior 30 days at any hospital? No Last DP export: 05/10/19 12:04 Patient Name: THAI MOREIRA Page [id number] at 1312 All edits/amendments must be made on the electronic document DICTATION DATE: 05/10/191310 WINE MAKER: BRITTANY 05/10/191310 RPT#: [id number] DC DATE: STATUS: ADM IN [facility] [address] [place] [address] END OF REPORT
--- NOTE | 2019-05-10 13:19 | MORECARE ---
CASE MANAGEMENT DISCHARGE SUMMARY PATIENT: THAI MOREIRA UNIT: [id number] ADM DATE: 05/08/19 AGE: 69 : 52 SEX: F ROOM/BED: D.2225 AUTHOR: CLAIRE JACQUES PHYSICIAN: REFERRING PHYSICIAN: BRODIE HUIZAR MD DATE OF SERVICE: 05/10/19 Discharge Plan Patient Name: THAI MOREIRA Facility: [facility]:[place] : 1950 Planned Disposition: Home Anticipated Discharge Date: 05/10/19 Discharge Date: Expected LOS: 2 Initial Reviewer: [email or web address] Initial Review Date: 05/10/2019 Generated: 05/10/19 2:19 pm Comments DCP- Discharge Planning Updated by [email or web address]: Tayler Rouse on 05/10/19 12:[address] Patient Name: THAI MOREIRA Admission Status: Elective Accout number: [id number] Admission Date: 05-08-2019 : 1950 Admission Diagnosis: Attending: BRODIE HUIZAR Current LOS: 2 Anticipated DC Date: 05-10-2019 Planned Disposition: Home Primary Insurance: [employer] MEDICARE ADV Discharge Planning Comments: CM met with patient to complete initial dc planning assessment. CM educated patient on the CM role and verbal consent given by patient to complete assessment. Patient lives at home with her friend (Yudi). At discharge patient plans to return and feels this is a safe discharge. CM discussed availability of home health, rehab services, and medical equipment. Patient denied known discharge needs at this time. States that she already has OP PT at the [facility] that Dr. Huizar has ordered. States is unsure what company it is with, but she has the paper work at home. I informed her that our PT department suggests she use a 4 wheeled walker and I could order it from a [employer] company and they would bill insurance. She states her [facility] I questioned if she had a ride for discharge tomorrow and she states that Yudi was planning on playing golf tomorrow, but he could come at sometime and get her. CM will continue to follow and will assist as needed with dc plans/needs. Director Global Strategic Publisher Sales: Tayler Rouse DCPIA - Discharge Planning Initial Assessment Updated by [email or web address]: Tayler Rouse on 05/10/19 1:04 pm * Is the patient Alert and Oriented? Yes * How many steps to enter\\exit or inside your home? 1/0 * PCP Dr. Joseph Jansen * Pharmacy [facility] on [address] * Preadmission Environment Home with Family * ADLs Independent * Equipment None * List name and contact numbers for known caregivers / representatives who currently or will assist patient after discharge: Yudi Hickman - [facility] - [phone] * Verbal permission to speak to the caregivers and representatives has been obtained from the patient. Yes * Community resources currently utilized None * Additional services required to return to the preadmission environment? No * Can the patient safely return to the preadmission environment? Yes * Has this patient been hospitalized within the prior 30 days at any hospital? No Last DP export: 05/10/19 12:12 Patient Name: THAI MOREIRA Page [phone] at 1319 All edits/amendments must be made on the electronic document DICTATION DATE: 05/10/19 1319 DRILLER'S ASSISTANT: BRITTANY 05/10/19 1319 RPT#: [id number] DC DATE: STATUS: ADM IN [facility] [address] [place] [address] END OF REPORT
[2019-05-10 18:08] VITALS: BP 104/67
--- NOTE | 2019-05-10 19:15 | NUR ---
PATIENT ALERT AND ORIENTED WHEN ENTERING THE ROOM. HOB ELEVATED 30 DEGREE ANGLE. PATIENT HAS LEFT KNEE DRESSING THAT HAS A STAPLED INCISION TO THE LEFT KNEE WITH DRESSING AND DESEAN WRAP. PATIENT STATES SHE VOIDED ON DESEAN WRAP. CHANGED DESEAN WRAP. DAVOL DRAING COMPRESSED AND ABOVE DRESSING. EMPTIED 20 CC OF RED BLOOD AND RETURNED TO COMPRESSED POSITION. PATIENT HAS CALL LIGHT IN REACH. DENIES FURTHER NEEDS AT THIS TIME. CPOC.
[2019-05-10 20:00] VITALS: BP 142/63
--- NOTE | 2019-05-10 20:40 | NUR ---
ADMINISTERING NORCO 7.5 PER ORDER FOR 8/10 PAIN TO THE LEFT KNEE. PATIENT TOLERATED MEDICATION WELL. CPOC.
--- NOTE | 2019-05-10 23:23 | NUR ---
PATIENT SCORED 3 ON FALL RISK SCALE. INSTRUCTED PATIENT ON USE OF CORAL ALARM. PATIENT REFUSES. SIGNED REFUSAL DOCUMENT IN CHART.
[2019-05-11] VITALS: BP 148/67
[2019-05-11 04:00] VITALS: BP 162/51
--- NOTE | 2019-05-11 06:24 | NUR ---
I have reviewed this patient and I concur with the Shift Assessment completed by the Licensed Practical Nurse today this shift.
[2019-05-11 07:13] LABS: ALKALINE PHOSPHATASE 63 U/L (46-116); ALT (SGPT) 29 U/L (10-68); BILIRUBIN - TOTAL 0.33 mg/dL (0.2-1.3); CALC OSMOLALITY 278 mosm/kg (275-300); CALCIUM 8.5 mg/dL (8.5-10.1); CARBON DIOXIDE 28.2 mmol/L (21.0-32.0); CHLORIDE - SERUM 103 mmol/L (98-107); CREATININE - SERUM 0.6 mg/dL (0.6-1.3); GLUCOSE 131 mg/dL (74-106); POTASSIUM - SERUM 4.6 mmol/L (3.5-5.1); PROTEIN - SERUM 6.3 g/dL (6.4-8.2); SODIUM 139 mmol/L (136-145); UREA NITROGEN 9 mg/dL (7-18); eGFR NON AFRICAN AMERICAN > 90 mL/min (90-120)
[2019-05-11 07:56] LABS: BASOPHILS 0.5 % (0-2); EOSINOPHILS 2.2 % (0-7); HEMATOCRIT 25.6 % (36.0-48.0); IMMATURE GRANULOCYTES 0.3 % (0-5); LYMPHOCYTES 28.4 % (15-50); MCH 28.7 pg (26.0-34.0); MCHC 31.3 g/dL (31.0-37.0); MCV 91.8 fL (80.0-100.0); MEAN PLATELET VOLUME 9.3 fL (7.4-10.4); MONOCYTES 9.1 % (2-11); NEUTROPHILS 59.5 % (40-80); PLATELET COUNT 220 10x3/uL (130-400); RBC 2.79 10x6/uL (4.00-5.40); RDW 19.5 % (11.5-14.5); WBC 5.9 10x3/uL (4.8-10.8)
[2019-05-11 08:22] VITALS: BP 119/64
--- NOTE | 2019-05-11 09:43 | NUR ---
ALERT AND ORIENTED. LUNGS CLEAR BILATERALLY. BOWEL SOUNDS ACTIVE X 4. DRSG TO LEFT KNEE C/D/I. DAVOL DRAIN IN PLACE TO LEFT KNEE WITH MINIMAL OUTPUT. SKIN OTHERWISE INTACT WITHOUT REDNESS. NO IV. TELEMETRY IN PLACE. STATES GOING HOME TODAY. STATES "I'M LEAVING TODAY WITH OR WITHOUT AN OK FROM THE DOCTOR." WILL SPEAK WITH NURSE PRACTITIONER THIS AM ABOUT DISCHARGE. DENIES NEEDS. BED LOW. CALL VERNON AND PERSONAL ITEMS IN REACH. WILL CONTINUE TO MONITOR.
[2019-05-11] MEDS ORDERED: FOLIC ACID1 MG PO (10:07)
[2019-05-11] MEDS ORDERED: HYDROCODONE-A1 UDTA2 PO (10:59)
--- NOTE | 2019-05-11 11:17 | NUR ---
PATIENT REQUESTING TO DISCHARGE. POLO EDMONDS SPEAKING WITH PATIENT. PATIENT INFORMED WAITING TO HEAR FROM DR SPAULDING FOR DISCHARGE. WILL CONTINUE TO MONITOR.
--- NOTE | 2019-05-11 11:33 | NUR ---
RESTING IN BED. DENIES NEEDS. WILL CONTINUE TO MONITOR.
[2019-05-11 12:57] VITALS: BP 157/57
--- NOTE | 2019-05-11 13:56 | NUR ---
DISCHARGE EDUCATION PROVIDED BOTH WRITTEN AND VERBAL. VERBALIZED UNDERSTANDING. DENIES FURTHER QUESTIONS. DRAIN REMOVED FROM LEFT UPPER LEG. PRESSURE DRSG APPLIED. GAUZE 4X4 PACKAGE X 2 SENT WITH PATIENT WELL FOAM TAPE. VERBALIZED UNDERSTANDING OF PRESSURE DRSG. TELEMETRY REMOVED AND RETURNED. WAITING FOR RIDE.
--- NOTE | 2019-05-11 14:54 | NUR ---
PATIENT DISCHARGED HOME WITH ALL BELONGINGS.
--- NOTE | 2019-05-13 14:18 | MORECARE ---
CASE MANAGEMENT DISCHARGE SUMMARY PATIENT: THAI MOREIRA UNIT: [id number] ADM DATE: 05/08/19 AGE: 69 : 52 SEX: F ROOM/BED: D.2225 AUTHOR: CLAIRE JACQUES PHYSICIAN: REFERRING PHYSICIAN: BRODIE HUIZAR MD DATE OF SERVICE: 05/13/19 Discharge Plan Patient Name: THAI MOREIRA Facility: [facility]:[place] : 1950 Planned Disposition: Home Anticipated Discharge Date: 05/10/19 Discharge Date: 05/11/2019 Expected LOS: 2 Initial Reviewer: [email or web address] Initial Review Date: 05/10/2019 Generated: 05/13/19 3:18 pm Comments DCP- Discharge Planning Updated by [email or web address]: Tayler Rouse on 05/10/19 12:[address] Patient Name: THAI MOREIRA Admission Status: Elective Accout number: [id number] Admission Date: 05-08-2019 : 1950 Admission Diagnosis: Attending: BRODIE HUIZAR Current LOS: 2 Anticipated DC Date: 05-10-2019 Planned Disposition: Home Primary Insurance: [employer] MEDICARE ADV Discharge Planning Comments: CM met with patient to complete initial dc planning assessment. CM educated patient on the CM role and verbal consent given by patient to complete assessment. Patient lives at home with her friend (Yudi). At discharge patient plans to return and feels this is a safe discharge. CM discussed availability of home health, rehab services, and medical equipment. Patient denied known discharge needs at this time. States that she already has OP PT at the [facility] that Dr. Huizar has ordered. States is unsure what company it is with, but she has the paper work at home. I informed her that our PT department suggests she use a 4 wheeled walker and I could order it from a [employer] company and they would bill insurance. She states her friend is going to get one from "[employer]." I questioned if she had a ride for discharge tomorrow and she states that Yudi was planning on playing golf tomorrow, but he could come at sometime and get her. CM will continue to follow and will assist as needed with dc plans/needs. Pricing Consultant: Tayler Rouse DCPIA - Discharge Planning Initial Assessment Updated by [email or web address]: Tayler Nasim on 05/10/19 1:04 pm * Is the patient Alert and Oriented? Yes * How many steps to enter\\exit or inside your home? 1/0 * PCP Dr. Joseph Jansen * Pharmacy [facility] on [address] * Preadmission Environment Home with Family * ADLs Independent * Equipment None * List name and contact numbers for known caregivers / representatives who currently or will assist patient after discharge: Yudi Hickman - [facility] - [phone] * Verbal permission to speak to the caregivers and representatives has been obtained from the patient. Yes * Community resources currently utilized None * Additional services required to return to the preadmission environment? No * Can the patient safely return to the preadmission environment? Yes * Has this patient been hospitalized within the prior 30 days at any hospital? No Last DP export: 05/10/19 12:19 Patient Name: THAI MOREIRA Page [phone] at 1418 All edits/amendments must be made on the electronic document DICTATION DATE: 05/13/191417 ACADEMIC AFFAIRS DIRECTOR: BRITTANY 05/13/191417 RPT#: [id number] [place] DATE:05/11/19 STATUS: DIS IN [facility] [address] [place] [address] END OF REPORT
== END 2019-05-11 14:55 | disposition home or self-care (01) | DRG 501 ==
LOC: D.MS 05:27 → D.PAN 05:27 → D.MS 09:02 → D.PAN 10:12 → D.OPS 10:15 → D.MS 05-11 14:55
PROVIDERS: Internal Medicine Nephrology; ADMIT Orthopaedic Surgery; ATTEND Orthopaedic Surgery
PROC: 0MBP0ZZ Excision of Left Knee Bursa and Ligament, Open Approach (ICD-10-PCS; principal; 2019-05-08 07:30)
DX: M70.42 Prepatellar bursitis, left knee (principal); D62 Acute posthemorrhagic anemia; I10 Essential (primary) hypertension; I95.81 Postprocedural hypotension; E11.65 Type 2 diabetes mellitus with hyperglycemia; E66.9 Obesity, unspecified; N95.9 Unspecified menopausal and perimenopausal disorder; F32.9 Major depressive disorder, single episode, unspecified; F43.10 Post-traumatic stress disorder, unspecified; Z87.891 Personal history of nicotine dependence

== ENCOUNTER 2019-05-18 14:24 | Day surgery (SDC) | payer MEDICARE, MEDICAID ==
[~2019-05-18] VITALS: Ht 162.6 cm; Wt 92.7 kg
[~2019-05-18 14:24] MED LIST changes: +FOLIC ACID1 MG PO; +HYDROCODONE-A1 UDTA2 PO
[2019-05-18 15:01] LABS: BASOPHILS 0.5 % (0-2); EOSINOPHILS 1.6 % (0-7); HEMATOCRIT 31.9 % (36.0-48.0); HEMOGLOBIN 9.8 g/dL (12-16); IMMATURE GRANULOCYTES 0.4 % (0-5); LYMPHOCYTES 32.6 % (15-50); MCH 28.7 pg (26.0-34.0); MCHC 30.7 g/dL (31.0-37.0); MCV 93.5 fL (80.0-100.0); MEAN PLATELET VOLUME 9.2 fL (7.4-10.4); NEUTROPHILS 56.9 % (40-80); RBC 3.41 10x6/uL (4.00-5.40); RDW 19.6 % (11.5-14.5); WBC 8.2 10x3/uL (4.8-10.8)
[2019-05-18 15:06] LABS: PLATELET COUNT 390 10x3/uL (130-400)
[2019-05-18 15:09] LABS: CALC OSMOLALITY 270 mosm/kg (275-300); CALCIUM 9.1 mg/dL (8.5-10.1); CARBON DIOXIDE 29.4 mmol/L (21.0-32.0); CHLORIDE - SERUM 99 mmol/L (98-107); CREATININE - SERUM 0.7 mg/dL (0.6-1.3); GLUCOSE 121 mg/dL (74-106); POTASSIUM - SERUM 4.3 mmol/L (3.5-5.1); SODIUM 135 mmol/L (136-145); UREA NITROGEN 12 mg/dL (7-18); eGFR NON AFRICAN AMERICAN 88 mL/min (90-120)
[2019-05-18 15:16] LABS: ALBUMIN 3.4 g/dL (3.4-5.0); ALKALINE PHOSPHATASE 77 U/L (46-116); ALT (SGPT) 25 U/L (10-68); BILIRUBIN - TOTAL 0.56 mg/dL (0.2-1.3); PROTEIN - SERUM 7.5 g/dL (6.4-8.2)
--- NOTE | 2019-05-18 15:58 | NUR ---
DR. JAQUEZ IN TO SEE PT.
--- NOTE | 2019-05-18 18:41 | NUR ---
ARRIVES TO UNIT PER STRETCHER, DESEAN WRAP DRESSING TO LEFT KNEE, PT C/O EDEMA AND PAIN TO LEFT KNEE, SL IN PLACE TO LEFT HAND, AWAITING PT TO GO TO SURGERY, NPO SINCE 8A
[2019-05-18 19:00] VITALS: BP 178/63
--- NOTE | 2019-05-18 19:50 | NUR ---
PT ALERT & ORIENTED. LEFT KNEE SWOLLEN AND PAINFUL. PT ANXIOUS ABOUT SURGERY. HIBICLENS BATH GIVEN BY REIMBURSEMENT COORDINATOR. REVIEWED HISTORY. COMPLETE ASSESSMENT PER FLOW-SHEET. PT NPO WAITING FOR SURGERY SCHEDULED TONIGHT. NO OTHER NEEDS. WILL CONTINUE TO MONITOR.
[2019-05-18 20:33] VITALS: BP 173/77
--- NOTE | 2019-05-18 20:59 | NUR ---
ADMINISTERED PREOP MEDS. RECOVERY NURSE HERE TO TAKE PT BACK TO SURGERY. NO OTHER NEEDS. WILL CONTINUE TO MONITOR.
[2019-05-18 22:36] VITALS: Ht 162.6 cm; Wt 92.7 kg
[2019-05-19] VITALS (12 sets, daily range): BP systolic 106–176; BP diastolic 57–76
--- NOTE | 2019-05-19 00:17 | NUR ---
AT 2317 AFTER GIVING DEMEROL 25MG IV X1 IN PACU PATIENT BEGAN TO START ITCHING AND HAD REDNESS TO LEFT HAND. ASSESSMENT OF THE LEFT HAND ARM REVEALED URTICARIA. IMMEDIATELY CONSULTED ANESTHESIA. VERBAL ORDERS RECEIVED TO ADMINISTER BENADRYL 25MG IV X1 NOW IN PACU. ORDERS RECEIVED AND IMPLEMENTED. VITAL SIGNS STABLE. SEE RECORD. WILL CONTINUE TO MONITOR.
--- NOTE | 2019-05-19 02:15 | NUR ---
PT C/O LEFT KNEE PAIN 02/02. GAVE DILAUDID 1 MG IV PUSH AND ICE TO KNEE. NO OTHER NEEDS. WILL REASSESS AND CONTINUE TO MONITOR.
[2019-05-19 07:07] LABS: HEMATOCRIT 30.6 % (36.0-48.0); HEMOGLOBIN 9.1 g/dL (12-16)
--- NOTE | 2019-05-19 07:11 | OP ---
PATIENT NAME: THAI DYSON MEDICAL RECORD: [id number] :54 LOCATION:D.[facility] [id number] ADMISSION DATE:05/18/19 SURGEON: ONAEL JAQUEZ, DATE OF OPERATION: 05/18/2019 PREOPERATIVE DIAGNOSIS: Left knee hematoma superficial. POSTOPERATIVE DIAGNOSIS: Left knee hematoma superficial. INDICATIONS: Ms. Dyson is a 69-year-old female who underwent a left knee prepatellar bursectomy with skin plasty approximately 2 weeks ago. She presented to the ER today with a large hematoma and draining out of where the drain hole had been and the incision site as well draining babak blood. The ER doc had aspirated it and got blood and was sent for culture. She was then started on antibiotics. The patient was seen in the ER. I informed her that due to the size of the hematoma that was putting her skin at risk for dehiscence. It was quite large, greater than 10 cm and she was aware that the risk for her would need to wash it out and closed the skin and I told her to put a wound VAC in it to get the drainage out and to get the skin to suck down, it would no longer form a void for it to fill. She was okay with that and was aware of the risk of infection, bleeding, damage to nerves and vessels, need for further surgery, blood clots, and even and need for long-term use of a wound VAC. She signed the consent. SURGEON: Oneal Jaquez DO DESCRIPTION OF PROCEDURE: The patient was taken to the operative suite, laid in supine position. The procedure performed was a left knee hematoma evacuation with irrigation, debridement and skin plasty of the left knee. When she was taken to the operative suite, she was given 2 grams Ancef laid in the supine position, given general anesthetic and LMA was placed. The left lower extremity was then prepped and draped in sterile fashion. Timeout was performed and everybody was in agreement as to the correct site, side, patient, and procedure. I then removed what was left of the karen in the knee and a large amount of sanguinous fluid came out of the knee. We then opened the rest of it and a large hematoma was seen on the superficial area of the skin just under the skin and did not penetrate the joint. This was evacuated and irrigated with 3 liters of normal saline. Any bleeding was coagulated at that time with Aquamantys and then performed the skin flap scissors and redundant skin. A significant amount of it resected approximately 2 cm on either side of the wound and closed with 2-0 Vicryl in inverted interrupted fashion and then 2-0 Prolene in a horizontal mattress fashion to save the distal 2 cm where I stuffed a silver sponge from the wound VAC. This was approximately 18 cm in length from tip to tip and 2 cm wide stuffed into the knee up proximally coming out distally and the wound then laid down the plastic on either side of the knee and then over the mid wound VAC sponge that was sticking out and then created a bridge with another sponge going to the medial side of the knee and this was laid over the wound VAC wrap. This was then cut and a lollipop for the wound VAC was put on and then this was covered with the plastic as well. The wound VAC plastic and suction was turned on and sealed any holes and held good suction and was draining a small amount of sanguinous fluid. We then dressed the wound with Adaptic, 4 x 4s, Kerlix, and then 6-inch Ronald wrap was placed around the knee. She was then awakened and taken to recovery in stable condition. Blood loss approximately 400 mL. OPERATIVE REPORT [id number] THAI DYSON COMPLICATIONS: None. I was assisted by Doni Frank, certified surgical corporate administrative assistant. He helped close the wound as well as removed from the skin. TRANSINT:[id number] Voice Confirmation ID: [id number] DOCUMENT ID: [id number] ONEAL JAQUEZ DO at 0711 CC: [id number] DICTATION DATE: 05/18/192312 MOLDER BENCH: 05/18/19 2346 ADM IN [facility] [address] [place] [address]
--- NOTE | 2019-05-19 09:25 | MORECARE ---
CASE MANAGEMENT DISCHARGE SUMMARY PATIENT: THAI MOREIRA UNIT: [id number] ADM DATE: 05/18/19 AGE: 69 : 52 SEX: F [facility] AUTHOR: CLAIRE JACQUES PHYSICIAN: REFERRING PHYSICIAN: ULISES BENTLEY MD DATE OF SERVICE: 05/19/19 Discharge Plan Patient Name: THAI MOREIRA Facility[facility] : 1950 Planned Disposition: Anticipated Discharge Date: 05/20/19 Discharge Date: Expected LOS: 2 Initial Reviewer: [id number] Initial Review Date: 05/19/2019 Generated: 05/19/19 10:24 am DCPIA - Discharge Planning Initial Assessment Updated by [email or web address]: Elizabeth Breaux on 05/19/19 9:21 am * Is the patient Alert and Oriented? Yes * PCP NETTE * Pharmacy [facility] * Preadmission Environment Home with Family * ADLs Independent * Other [place] * List name and contact numbers for known caregivers / representatives who currently or will assist patient after discharge: MALORIE,LIFE PARTNER, TYLER, DAUGHTER, , CELL [phone] * Verbal permission to speak to the caregivers and representatives has been obtained from the patient. Yes * Community resources currently utilized None * Additional services required to return to the preadmission environment? Yes * Can the patient safely return to the preadmission environment? Yes * Has this patient been hospitalized within the prior 30 days at any hospital? Yes Coverage Notice Reviewer: [id number] - Shahla Dewey Notice Issued Date-Time: 05/18/2019 16:40 Notice Type: Medicare Outpatient Observation Notice Notice Delivered To: Patient Relationship to Patient: Carbon Electrodes Supervisor Name: Delivery Method: HAND - Hand Delivered Susan Days: Prior Verbal Notification: Recipient Understood Notice: Recipient Signature: Med Rec Note Co-signed by Attending: Coverage Notice Comment: HINKLE delivered, explained, signed by the patient, and placed in his chart. Signed form also left with patient. Shahla Dewey RN , [facility] Patient Name: THAI MOREIRA Page [phone] at 0925 All edits/amendments must be made on the electronic document DICTATION DATE: 05/19/19923 BUZZSAW OPERATOR HELPER: BRITTANY 05/19/19923 RPT#: [id number] DC DATE: STATUS: ADM IN [facility] [address] [place] [address] END OF REPORT
--- NOTE | 2019-05-19 09:32 | MORECARE ---
CASE MANAGEMENT DISCHARGE SUMMARY PATIENT: THAI MOREIRA UNIT: [id number] ADM DATE: 05/18/19 AGE: 69 : 52 SEX: F ROOM/BED: D.2236 AUTHOR: GEORGIE,DOC PHYSICIAN: REFERRING PHYSICIAN: ULISES BENTLEY MD DATE OF SERVICE: 05/19/19 Discharge Plan Patient Name: THAI MOREIRA Facility: [facility]:[place] : 1950 Planned Disposition: Anticipated Discharge Date: 05/20/19 Discharge Date: Expected LOS: 2 Initial Reviewer: [id number] Initial Review Date: 05/19/2019 Generated: 05/19/19 10:31 am Comments DCP- Discharge Planning Updated by [email or web address]: Elizabeth Breaux on 05/19/19 8:[address] Patient Name: THAI MOREIRA Admission Status: ER Accout number: [id number] Admission Date: 05-18-2019 : 1950 Admission Diagnosis: Attending: ULISES BENTLEY Current LOS: 1 Anticipated DC Date: 05-20-2019 Planned Disposition: Primary Insurance: [employer] MEDICARE ADV Discharge Planning Comments: CM met with patient at bedside after explaining CM role and obtaining verbal consent. PATIENT WILL NEED HH AT TIME OF DC, ANDREAS SIGNED FOR [facility]. WOUND VAC IS ON, WILL NEED WOUND VAC WHEN DC'D. PATIENT STATES ANTICIPATE DC POSSIBLY TOMORROW. I AM FAXING REFERRAL TO [facility] AND WILL NOTIFY [facility] OF WOUND VAC. CM TO FOLLOW AND ASSIST. Telecommunications Line Mechanic: Elizabeth Breaux DCPIA - Discharge Planning Initial Assessment Updated by [id number]: Elizabeth Breaux on 05/19/19 9:21 am * Is the patient Alert and Oriented? Yes * PCP NETTE * Pharmacy [facility] * Preadmission Environment Home with Family * ADLs Independent * Other Equipment [place] * List name and contact numbers for known caregivers / representatives who currently or will assist patient after discharge: MALORIE,LIFE PARTNER, TYLER, DAUGHTER, , CELL [phone] * Verbal permission to speak to the caregivers and representatives has been obtained from the patient. Yes * Community resources currently utilized None * Additional services required to return to the preadmission environment? Yes * Can the patient safely return to the preadmission environment? Yes * Has this patient been hospitalized within the prior 30 days at any hospital? Yes External Providers External Provider: [facility] [employer] Next Contact Date: Service Request Date: Service Type: Resolution: Reviewer: Comments: External Provider: [facility] Next Contact Date: Service Request Date: Service Type: Resolution: Reviewer: Comments: Coverage Notice Reviewer: [id number] Dell Dewey Notice Issued Date-Time: 05/18/2019 16:40 Notice Type: Medicare Outpatient Observation Notice Notice Delivered To: Patient Relationship to Patient: Scuba Diving Teacher Name: Delivery Method: HAND - Hand Delivered Susan Days: Prior Verbal Notification: Recipient Understood Notice: Recipient Signature: Med Rec Note Co-signed by Attending: Coverage Notice Comment: HINKLE delivered, explained, signed by the patient, and placed in his chart. Signed form also left with patient. Shahla Dewey RN , [facility] Reviewer: [id number] Dell Breaux Notice Issued Date-Time: 05/19/2019 9:30 Notice Type: Patient Choice Letter Notice Delivered To: Patient Relationship to Patient: Self Scuba Diving Teacher Name: Delivery Method: HAND - Hand Delivered Susan Days: Prior Verbal Notification: Recipient Understood Notice: Yes Recipient Signature: Yes Med Rec Note Co-signed by Attending: Coverage Notice Comment: [facility] ANY Last DP export: 05/19/19 8:25 Patient Name: THAI MOREIRA Page [phone] at 0932 All edits/amendments must be made on the electronic document DICTATION DATE: 05/19/19930 INSPECTOR MOTOR VEHICLES: DM 05/19/19930 RPT#: [id number] DC DATE: STATUS: ADM IN [facility] [address] [place] [address] END OF REPORT
[2019-05-19 11:37] LABS: % SATURATION 11 % (15-55); IRON 49 ug/dl (35-150); TOTAL IRON BIND CAPACITY 413 ug/dl (260-445); UNSAT IRON BIND CAPACITY 364 ug/dl (150-375)
--- NOTE | 2019-05-19 14:29 | MORECARE ---
CASE MANAGEMENT DISCHARGE SUMMARY PATIENT: THAI MOREIRA UNIT: [id number] ADM DATE: 05/18/19 AGE: 69 : 52 SEX: F ROOM/BED: D.2236 AUTHOR: GEORGIE,DOC PHYSICIAN: REFERRING PHYSICIAN: ULISES BENTLEY MD DATE OF SERVICE: 05/19/19 Discharge Plan Patient Name: THAI MOREIRA Facility: [facility]:[place] : 1950 Planned Disposition: Anticipated Discharge Date: 05/20/19 Discharge Date: Expected LOS: 2 Initial Reviewer: [id number] Initial Review Date: 05/19/2019 Generated: 05/19/19 3:29 pm Comments DCP- Discharge Planning Updated by [id number]: Elizabeth Breaux on 05/19/19 1:[address] Patient Name: THAI MOREIRA Admission Status: ER Accout number: [id number] Admission Date: 05-18-2019 : 1950 Admission Diagnosis: Attending: ULISES BENTLEY Current LOS: 1 Anticipated DC Date: 05-20-2019 Planned Disposition: Primary Insurance: WE[employer] MEDICARE ADV Discharge Planning Comments: CM met with patient at bedside after explaining CM role and obtaining verbal consent. PATIENT WILL NEED HH AT TIME OF DC, ANDREAS SIGNED FOR [facility]. WOUND VAC IS ON, WILL NEED WOUND VAC WHEN DC'D. PATIENT STATES ANTICIPATE DC POSSIBLY TOMORROW. I AM FAXING REFERRAL TO [facility] AND WILL NOTIFY [facility] OF WOUND VAC. CM TO FOLLOW AND ASSIST. Outbound Supervisor: Elizabeth Breaux Appended by Elizabeth Breaux on 05/19/2019 14:23 RENTAL SALES REPRESENTATIVE: DOCUMENTS FAXED TO [facility] AND [facility]. DCPIA - Discharge Planning Initial Assessment Updated by [id number]: Eliazbeth Breaux on 05/19/19 9:21 am * Is the patient Alert and Oriented? Yes * PCP NETTE * Pharmacy [facility] * Preadmission Environment Home with Family * ADLs Independent * Other Equipment [place] * List name and contact numbers for known caregivers / representatives who currently or will assist patient after discharge: MALORIE,LIFE PARTNER, TYLER, DAUGHTER, , CELL [phone] * Verbal permission to speak to the caregivers and representatives has been obtained from the patient. Yes * Community resources currently utilized None * Additional services required to return to the preadmission environment? Yes * Can the patient safely return to the preadmission environment? Yes * Has this patient been hospitalized within the prior 30 days at any hospital? Yes Coverage Notice Reviewer: [id number] Dell Dewey Notice Issued Date-Time: 05/18/2019 16:40 Notice Type: Medicare Outpatient Observation Notice Notice Delivered To: Patient Relationship to Patient: Maintenance Foreman Name: Delivery Method: HAND - Hand Delivered Susan Days: Prior Verbal Notification: Recipient Understood Notice: Recipient Signature: Med Rec Note Co-signed by Attending: Coverage Notice Comment: HINKLE delivered, explained, signed by the patient, and placed in his chart. Signed form also left with patient. Shahla Dewey RN , [facility] Reviewer: [id number] Dell Breaux Notice Issued Date-Time: 05/19/2019 9:30 Notice Type: Patient Choice Letter Notice Delivered To: Patient Relationship to Patient: Self Maintenance Foreman Name: Delivery Method: HAND - Hand Delivered Susan Days: Prior Verbal Notification: Recipient Understood Notice: Yes Recipient Signature: Yes Med Rec Note Co-signed by Attending: Coverage Notice Comment: ANDREAS RAJAN DME ANY Last DP export: 05/19/19 8:32 Patient Name: THAI MOREIRA Page 71250 at 1429 All edits/amendments must be made on the electronic document DICTATION DATE: 05/19/191428 ADVERTISING AGENCY MANAGER: BRITTANY 05/19/191428 RPT#: [id number] DC DATE: STATUS: ADM IN [facility] [address] [place] [address] END OF REPORT
--- NOTE | 2019-05-19 14:35 | NUR ---
PT AWARE OF NEED FOR STOOL SPECIMEN
[2019-05-19 17:27] LABS: APPEARANCE CLEAR (CLEAR); BILIRUBIN NEGATIVE (NEGATIVE); COLOR YELLOW (YELLOW); GLUCOSE NEGATIVE (NEGATIVE); KETONE NEGATIVE (NEGATIVE); NITRITE NEGATIVE (NEGATIVE); PROTEIN NEGATIVE (NEGATIVE); UROBILINOGEN NORMAL (NORMAL)
--- NOTE | 2019-05-19 20:42 | NUR ---
PT ALERT & ORIENTED. FSBS 170 - PT REFUSED INSULIN. PT C/O LEFT KNEE PAIN 02/02. GAVE DILAUDID 1 MG AND BENADRYL 25 MG IV PUSH FOR ITCHING. COMPLETE ASSESSMENT PER FLOW-SHEET. WILL CONTINUE TO MONITOR.
[2019-05-20 01:05] VITALS: BP 100/60
[2019-05-20 05:06] VITALS: BP 100/54
[2019-05-20 06:57] LABS: BASOPHILS 0.2 % (0-2); EOSINOPHILS 1.3 % (0-7); HEMATOCRIT 27.5 % (36.0-48.0); HEMOGLOBIN 8.5 g/dL (12-16); IMMATURE GRANULOCYTES 0.2 % (0-5); MCH 28.7 pg (26.0-34.0); MCHC 30.9 g/dL (31.0-37.0); MCV 92.9 fL (80.0-100.0); MEAN PLATELET VOLUME 9.3 fL (7.4-10.4); NEUTROPHILS 68.3 % (40-80); PLATELET COUNT 312 10x3/uL (130-400); RBC 2.96 10x6/uL (4.00-5.40); RDW 19.8 % (11.5-14.5); WBC 9.4 10x3/uL (4.8-10.8)
[2019-05-20 06:59] LABS: ANION GAP 10.5 mmol/L (8-16); CALCIUM 8.2 mg/dL (8.5-10.1); CARBON DIOXIDE 27.1 mmol/L (21.0-32.0); POTASSIUM - SERUM 4.6 mmol/L (3.5-5.1)
[2019-05-20 07:00] LABS: CREATININE - SERUM 1.3 mg/dL (0.6-1.3)
--- NOTE | 2019-05-20 08:17 | NUR ---
PT RESTING IN BED. RESP EVEN AND UNLABORED. O2 @ 2L NC IN PLACE. REPORTS PAIN 4/10 AT THIS TIME, DENIES NEED FOR PAIN MED AT THIS TIME. IV TO LEFT HAND WITH 1/2 NS @ 50ML/HR INFUSING VIA PUMP. SITE WITHOUT REDNESS OR EDEMA. DRESSING TO LEFT LOWER EXTREMITY, C/D/I. WOUND VAC IN PLACE. PT DENIES FURTHER NEEDS AT THIS TIME. CL WITHIN REACH. ENCOURAGED TO CALL WITH NEEDS. CONTINUE POC
[2019-05-20 08:22] VITALS: BP 120/92
--- NOTE | 2019-05-20 09:11 | MORECARE ---
CASE MANAGEMENT DISCHARGE SUMMARY PATIENT: THAI MOREIRA UNIT: [id number] ADM DATE: 05/18/19 AGE: 69 : 52 SEX: F ROOM/BED: D.2236 AUTHOR: GEORGIE,DOC PHYSICIAN: REFERRING PHYSICIAN: ULISES BENTLEY MD DATE OF SERVICE: 05/20/19 Discharge Plan Patient Name: THAI MOREIRA Facility: [facility]:[place] : 1950 Planned Disposition: Anticipated Discharge Date: 05/20/19 Discharge Date: Expected LOS: 2 Initial Reviewer: [id number] Initial Review Date: 05/19/2019 Generated: 05/20/19 10:11 am Comments DCP- Discharge Planning Updated by [id number]: Tayler Rouse on 05/20/19 8:[address] Wound Vac RX signed by Dr. Kelly and faxed to [facility], I have notified Natesia with [facility]. Cm will continue to follow and assist with discharge planning/needs. DCP- Discharge Planning Updated by [id number]: Elizabeth Breaux on 05/19/19 1:[address] Patient Name: THAI MOREIRA Admission Status: ER Accout number: [id number] Admission Date: 05-18-2019 : 1950 Admission Diagnosis: Attending: ULISES BENTLEY Current LOS: 1 Anticipated DC Date: 05-20-2019 Planned Disposition: Primary Insurance: WE[employer] MEDICARE ADV Discharge Planning Comments: CM met with patient at bedside after explaining CM role and obtaining verbal consent. PATIENT WILL NEED HH AT TIME OF DC, ANDREAS SIGNED FOR [facility]. WOUND VAC IS ON, WILL NEED WOUND VAC WHEN DC'D. PATIENT STATES ANTICIPATE DC POSSIBLY TOMORROW. I AM FAXING REFERRAL TO [facility] AND WILL NOTIFY [facility] OF WOUND VAC. CM TO FOLLOW AND ASSIST. Histology Specialist: Elizabeth Breaux Appended by Elizabeth Breaux on 05/19/2019 14:23 DIRECTOR OF EMPLOYER SERVICES: DOCUMENTS FAXED TO [facility] AND [facility]. DCPIA - Discharge Planning Initial Assessment Updated by [id number]: Elizabeth Breaux on 05/19/19 9:21 am * Is the patient Alert and Oriented? Yes * PCP CANNADAY * Pharmacy [facility] * Preadmission Environment Home with Family * ADLs Independent * Other Equipment [place] * List name and contact numbers for known caregivers / representatives who currently or will assist patient after discharge: MALORIE,LIFE PARTNER, TYLER, DAUGHTER, , CELL [phone] * Verbal permission to speak to the caregivers and representatives has been obtained from the patient. Yes * Community resources currently utilized None * Additional services required to return to the preadmission environment? Yes * Can the patient safely return to the preadmission environment? Yes * Has this patient been hospitalized within the prior 30 days at any hospital? Yes Coverage Notice Reviewer: [id number] Dell Dewey Notice Issued Date-Time: 05/18/2019 16:40 Notice Type: Medicare Outpatient Observation Notice Notice Delivered To: Patient Relationship to Patient: Repairer Wood Furniture Name: Delivery Method: HAND - Hand Delivered Susan Days: Prior Verbal Notification: Recipient Understood Notice: Recipient Signature: Med Rec Note Co-signed by Attending: Coverage Notice Comment: HINKLE delivered, explained, signed by the patient, and placed in his chart. Signed form also left with patient. Shahla Dewey RN , [facility] Reviewer: [id number] Dell Breaux Notice Issued Date-Time: 05/19/2019 9:30 Notice Type: Patient Choice Letter Notice Delivered To: Patient Relationship to Patient: Self Repairer Wood Furniture Name: Delivery Method: HAND - Hand Delivered Susan Days: Prior Verbal Notification: Recipient Understood Notice: Yes Recipient Signature: Yes Med Rec Note Co-signed by Attending: Coverage Notice Comment: [facility]RE[facility] RAJAN DME ANY Last DP export: 05/19/19 1:29 Patient Name: THAI MOREIRA Page [phone] at 0911 All edits/amendments must be made on the electronic document DICTATION DATE: 05/20/19909 CUSTOMER ENGAGEMENT ANALYST: BRITTANY 05/20/19909 RPT#: [id number] DC DATE: STATUS: ADM IN [facility] [address] [place] [address] END OF REPORT
[2019-05-20 12:52] VITALS: BP 112/58
--- NOTE | 2019-05-20 13:05 | MORECARE ---
CASE MANAGEMENT DISCHARGE SUMMARY PATIENT: THAI MOREIRA UNIT: [id number] ADM DATE: 05/18/19 AGE: 69 : 52 SEX: F ROOM/BED: D.2236 AUTHOR: GEORGIE,DOC PHYSICIAN: REFERRING PHYSICIAN: ULISES BENTLEY MD DATE OF SERVICE: 05/20/19 Discharge Plan Patient Name: THAI MOREIRA Facility: [facility]:[place] : 1950 Planned Disposition: Anticipated Discharge Date: 05/20/19 Discharge Date: Expected LOS: 2 Initial Reviewer: [id number] Initial Review Date: 05/19/2019 Generated: 05/20/19 2:05 pm Comments DCP- Discharge Planning Updated by [email or web address]: Tayler Rouse on 05/20/19 12:[address] Patient Name: THAI MOREIRA Encounter No: [id number] : 1950 Primary Insurance: WE[employer] MEDICARE ADV Anticipated DC Date: 05-20-2019 Planned Disposition: External Planned Provider: : DCP follow-up note: Patient and family in agreement with discharge plan. No changes to plan. I spoke with Florencia with [facility] and clinical and order faxed. I am still awaiting approval from insurance for the wound vac and I have informed the patient and home health of this. Case management will follow and assist as needed. Tayler Rouse DCP- Discharge Planning Updated by [email or web address]: Tayler Rouse on 05/20/19 8:[address] Wound Vac RX signed by Dr. Kelly and faxed to [facility], I have notified Dayne with [facility]. Cm will continue to follow and assist with discharge planning/needs. DCP- Discharge Planning Updated by [email or web address]: Elizabeth Breaux on 05/19/19 1:[address] Patient Name: THAI MOREIRA Admission Status: ER Accout number: [id number] Admission Date: 05-18-2019 : 1950 Admission Diagnosis: Attending: ULISES BENTLEY Current LOS: 1 Anticipated DC Date: 05-20-2019 Planned Disposition: Primary Insurance: WE[employer] MEDICARE ADV Discharge Planning Comments: CM met with patient at bedside after explaining CM role and obtaining verbal consent. PATIENT WILL NEED HH AT TIME OF DC, ANDREAS SIGNED FOR [facility]. WOUND VAC IS ON, WILL NEED WOUND VAC WHEN DC'D. PATIENT STATES ANTICIPATE DC POSSIBLY TOMORROW. I AM FAXING REFERRAL TO [facility] AND WILL NOTIFY [facility] OF WOUND VAC. CM TO FOLLOW AND ASSIST. Alarm Signaler: Elizabeth Breaux Appended by Elizabeth Breaux on 05/19/2019 14:23 MANAGER CLINICAL APPLICATIONS: DOCUMENTS FAXED TO [facility] AND [facility]. DCPIA - Discharge Planning Initial Assessment Updated by [email or web address]: Elizabeth Breaux on 05/19/19 9:21 am * Is the patient Alert and Oriented? Yes * PCP NETTE * Pharmacy [facility] * Preadmission Environment Home with Family * ADLs Independent * Other Equipment [place] * List name and contact numbers for known caregivers / representatives who currently or will assist patient after discharge: MALORIE,LIFE PARTNER, TYLER, DAUGHTER, , CELL [phone] * Verbal permission to speak to the caregivers and representatives has been obtained from the patient. Yes * Community resources currently utilized None * Additional services required to return to the preadmission environment? Yes * Can the patient safely return to the preadmission environment? Yes * Has this patient been hospitalized within the prior 30 days at any hospital? Yes External Providers External Provider: [facility] Next Contact Date: Service Request Date: Service Type: Resolution: Reviewer: Comments: Coverage Notice Reviewer: [id number] Dell Dewey Notice Issued Date-Time: 05/18/2019 16:40 Notice Type: Medicare Outpatient Observation Notice Notice Delivered To: Patient Relationship to Patient: Medical Historian Name: Delivery Method: HAND - Hand Delivered Susan Days: Prior Verbal Notification: Recipient Understood Notice: Recipient Signature: Med Rec Note Co-signed by Attending: Coverage Notice Comment: HINKLE delivered, explained, signed by the patient, and placed in his chart. Signed form also left with patient. Shahla Dewey RN , [facility] Reviewer: [id number] - Elizabeth Breaux Notice Issued Date-Time: 05/19/2019 9:30 Notice Type: Patient Choice Letter Notice Delivered To: Patient Relationship to Patient: Self Medical Historian Name: Delivery Method: HAND - Hand Delivered Susan Days: Prior Verbal Notification: Recipient Understood Notice: Yes Recipient Signature: Yes Med Rec Note Co-signed by Attending: Coverage Notice Comment: ANDREAS RAJAN DME ANY Last DP export: 05/20/19 8:11 Patient Name: THAI MOREIRA Page 51999 at 1305 All edits/amendments must be made on the electronic document DICTATION DATE: 05/20/19 1305 POWER GENERATION PLANT OPERATOR: BRITTANY 05/20/19 1305 RPT#: [id number] DC DATE: STATUS: ADM IN [facility] [address] [place] [address] END OF REPORT
--- NOTE | 2019-05-20 14:34 | MORECARE ---
CASE MANAGEMENT DISCHARGE SUMMARY PATIENT: THAI MOREIRA UNIT: [id number] ADM DATE: 05/18/19 AGE: 69 : 52 SEX: F ROOM/BED: D.2236 AUTHOR: GEORGIE,DOC PHYSICIAN: REFERRING PHYSICIAN: ULISES BENTLEY MD DATE OF SERVICE: 05/20/19 Discharge Plan Patient Name: THAI MOREIRA Facility: [facility]:[place] : 1950 Planned Disposition: Anticipated Discharge Date: 05/20/19 Discharge Date: Expected LOS: 2 Initial Reviewer: [email or web address] Initial Review Date: 05/19/2019 Generated: 05/20/19 3:33 pm Comments DCP- Discharge Planning Updated by [id number]: Tayler Rouse on 05/20/19 1:[address] Authorization for wound vac received. Patient given copy of proof of delivery. I have called and spoke with Maria Luisa, she will inform Brenda. Angulo (primary nurse) informed. Faxed proof of delivery to [facility] after patient signature. I spoke with Florencia at [facility] and she states they will accept patient. Home today with . DCP- Discharge Planning Updated by [email or web address]: Tayler Rouse on 05/20/19 12:[address] Patient Name: THAI MOREIRA Encounter No: [id number] : 1950 Primary Insurance: [employer] MED[employer]ARE ADV Anticipated DC Date: 05-20-2019 Planned Disposition: External Planned Provider: : DCP follow-up note: Patient and family in agreement with discharge plan. No changes to plan. I spoke with Florencia with [facility] and clinical and order faxed. I am still awaiting approval from insurance for the wound vac and I have informed the patient and home health of this. Case management will follow and assist as needed. Tayler Rouse DCP- Discharge Planning Updated by [id number]: Tayler Rouse on 05/20/19 8:[address] Wound Vac RX signed by Dr. Kelly and faxed to [facility], I have notified Natesia with [facility]. Cm will continue to follow and assist with discharge planning/needs. DCP- Discharge Planning Updated by [id number]: Elizabeth Breaux on 05/19/19 1:[address] Patient Name: THAI MOREIRA Admission Status: ER Accout number: [id number] Admission Date: 05-18-2019 : 1950 Admission Diagnosis: Attending: ULISES BNETLEY Current LOS: 1 Anticipated DC Date: 05-20-2019 Planned Disposition: Primary Insurance: [employer] MED[employer]ARE ADV Discharge Planning Comments: CM met with patient at bedside after explaining CM role and obtaining verbal consent. PATIENT WILL NEED HH AT TIME OF DC, ANDREAS SIGNED FOR [facility]. WOUND VAC IS ON, WILL NEED WOUND VAC WHEN DC'D. PATIENT STATES ANTICIPATE DC POSSIBLY TOMORROW. I AM FAXING REFERRAL TO [facility] AND WILL NOTIFY [facility] OF WOUND VAC. CM TO FOLLOW AND ASSIST. Cutting Table Operator First: Elizabeth Breaux Appended by Elizabeth Breaux on 05/19/2019 14:23 LAND COMMISSIONER: DOCUMENTS FAXED TO [facility] AND [facility]. DCPIA - Discharge Planning Initial Assessment Updated by [id number]: Elizabeth Breaux on 05/19/19 9:21 am * Is the patient Alert and Oriented? Yes * PCP NETTE * Pharmacy [facility] * Preadmission Environment Home with Family * ADLs Independent * Other Equipment [place] , [place] * List name and contact numbers for known caregivers / representatives who currently or will assist patient after discharge: MALORIE,LIFE PARTNER, TYLER, DAUGHTER, , CELL [phone] * Verbal permission to speak to the caregivers and representatives has been obtained from the patient. Yes * Community resources currently utilized None * Additional services required to return to the preadmission environment? Yes * Can the patient safely return to the preadmission environment? Yes * Has this patient been hospitalized within the prior 30 days at any hospital? Yes Coverage Notice Reviewer: [id number] - Shahla Dewey Notice Issued Date-Time: 05/18/2019 16:40 Notice Type: Medicare Outpatient Observation Notice Notice Delivered To: Patient Relationship to Patient: Steel Chipper Name: Delivery Method: HAND - Hand Delivered Susan Days: Prior Verbal Notification: Recipient Understood Notice: Recipient Signature: Med Rec Note Co-signed by Attending: Coverage Notice Comment: HINKLE delivered, explained, signed by the patient, and placed in his chart. Signed form also left with patient. Shahla Dewey RN , CCM Reviewer: [id number] Dell Breaux Notice Issued Date-Time: 05/19/2019 9:30 Notice Type: Patient Choice Letter Notice Delivered To: Patient Relationship to Patient: Self Steel Chipper Name: Delivery Method: HAND - Hand Delivered Susan Days: Prior Verbal Notification: Recipient Understood Notice: Yes Recipient Signature: Yes Med Rec Note Co-signed by Attending: Coverage Notice Comment: ANDREAS RAJAN DME ANY Last DP export: 05/20/19 12:05 Patient Name: THAI MOREIRA Page [id number] at 1434 All edits/amendments must be made on the electronic document DICTATION DATE: 05/20/19 1433 ACCESS MANAGER: BRITTANY 05/20/19 1433 RPT#: [id number] DC DATE: STATUS: ADM IN [facility] [address] [place] [address] END OF REPORT
--- NOTE | 2019-05-20 14:48 | NUR ---
PT PROVIDED DISCHARGE INSTRUCTIONS FOR DISCHARGE HOME. DISCUSSED HOME HEALTH SERVICES TO BE PROVIDED BY [facility], WOUND VAC AND MEDICATIONS TO CONTINUE. IV DISCONTINUED FROM LEFT HAND. CATH INTACT. PT DENIES QUESTIONS AT THIS TIME. AWAITING RIDE FOR TRANSPORTATION HOME
--- NOTE | 2019-05-25 15:10 | MORECARE ---
CASE MANAGEMENT DISCHARGE SUMMARY PATIENT: THAI OMREIRA UNIT: [id number] ADM DATE: 05/18/19 AGE: 69 : 52 SEX: F ROOM/BED: D.2236 AUTHOR: GEORGIE,DOC PHYSICIAN: REFERRING PHYSICIAN: ULISES JAQUEZ DO DATE OF SERVICE: 05/25/19 Discharge Plan Patient Name: THAI MOREIRA Facility: [facility]:[place] : 1950 Planned Disposition: Home Health Service Anticipated Discharge Date: 05/20/19 Discharge Date: 05/20/2019 Expected LOS: 2 Initial Reviewer: [email or web address] Initial Review Date: 05/19/2019 Generated: 05/25/19 4:10 pm DCP- Discharge Planning Updated by [id number]: Tayler Rouse on 05/20/19 1:[address] Authorization for wound vac received. Patient given copy of proof of delivery. I have called and spoke with Maria Luisa, she will inform Sugar. dAele (primary nurse) informed. Faxed proof of delivery to [facility] after patient signature. I spoke with Florencia at [facility] and she states they will accept patient. Home today with . DCP- Discharge Planning Updated by [id number]: Tayler Rouse on 05/20/19 12:[address] Patient Name: THAI MOREIRA Encounter No: [id number] : 1950 Primary Insurance: [employer] MEDICARE ADV Anticipated DC Date: 05-20-2019 Planned Disposition: External Planned Provider: : DCP follow-up note: Patient and family in agreement with discharge plan. No changes to plan. I spoke with Florencia with [facility] and clinical and order faxed. I am still awaiting approval from insurance for the wound vac and I have informed the patient and home health of this. Case management will follow and assist as needed. Tayler Rouse DCP- Discharge Planning Updated by [id number]: Tayler Rouse on 05/20/19 8:[address] Wound Vac RX signed by Dr. Jaquez and faxed to [facility], I have notified Natesia with [facility]. Cm will continue to follow and assist with discharge planning/needs. DCP- Discharge Planning Updated by [id number]: Elizabeth Breaux on 05/19/19 1:[address] Patient Name: THAI MOREIRA Admission Status: ER Accout number: [id number] Admission Date: 05-18-2019 : 1950 Admission Diagnosis: Attending: ULISES BENTLEY Current LOS: 1 Anticipated DC Date: 05-20-2019 Planned Disposition: Primary Insurance: [facility] AD[facility] Discharge Planning Comments: CM met with patient at bedside after explaining CM role and obtaining verbal consent. PATIENT WILL NEED HH AT TIME OF DC, ANDREAS SIGNED FOR [facility]. WOUND VAC IS ON, WILL NEED WOUND VAC WHEN DC'D. PATIENT STATES ANTICIPATE DC POSSIBLY TOMORROW. I AM FAXING REFERRAL TO [facility] AND WILL NOTIFY [facility] OF WOUND VAC. CM TO FOLLOW AND ASSIST. Business Objects: Elizabeth Breaux Appended by Elizabeth Breaux on 05/19/2019 14:23 PULPER TENDER: DOCUMENTS FAXED TO [facility] AND [facility]. DCPIA - Discharge Planning Initial Assessment Updated by [id number]: Elizabeth Breaux on 05/19/19 9:21 am * Is the patient Alert and Oriented? Yes * PCP NETTE * Pharmacy [facility] * Preadmission Environment Home with Family * ADLs Independent * Other Equipment WALKER , [place] * List name and contact numbers for known caregivers / representatives who currently or will assist patient after discharge: MALORIE,LIFE PARTNER, TYLER, DAUGHTER, , CELL [phone] * Verbal permission to speak to the caregivers and representatives has been obtained from the patient. Yes * Community resources currently utilized None * Additional services required to return to the preadmission environment? Yes * Can the patient safely return to the preadmission environment? Yes * Has this patient been hospitalized within the prior 30 days at any hospital? Yes Coverage Notice Reviewer: [id number] - Shahla Dewey Notice Issued Date-Time: 05/18/2019 16:40 Notice Type: Medicare Outpatient Observation Notice Notice Delivered To: Patient Relationship to Patient: Payment Rep Name: Delivery Method: HAND - Hand Delivered Susan Days: Prior Verbal Notification: Recipient Understood Notice: Recipient Signature: Med Rec Note Co-signed by Attending: Coverage Notice Comment: HINKLE delivered, explained, signed by the patient, and placed in his chart. Signed form also left with patient. Shahla Dewey RN , CCM Reviewer: [id number] Dell Breaux Notice Issued Date-Time: 05/19/2019 9:30 Notice Type: Patient Choice Letter Notice Delivered To: Patient Relationship to Patient: Self Payment Rep Name: Delivery Method: HAND - Hand Delivered Susan Days: Prior Verbal Notification: Recipient Understood Notice: Yes Recipient Signature: Yes Med Rec Note Co-signed by Attending: Coverage Notice Comment: ANDREAS RAJAN DME ANY Last DP export: 05/20/19 1:34 Patient Name: THAI MOREIRA Page [id number] at 1510 All edits/amendments must be made on the electronic document DICTATION DATE: 05/25/19 151 CARBIDE TOOL DIE MAKER: BRITTANY 05/25/19 1510 RPT#: [id number] DC DATE:05/20/19 STATUS: DIS IN [facility] [address] [place] [address] END OF REPORT
== END 2019-05-20 15:16 | disposition home or self-care (01) ==
LOC: OBSVTIME → D.ER 14:24 → EDSTATUS 16:38 → D.MS 17:58 → D.ER 17:58 → OBSVTIME 17:59 → D.MS 18:57 → D.ER 18:57 → D.MS 19:03 → D.ER 05-20 15:16
PROVIDERS: Emergency Medicine; Internal Medicine Nephrology; ATTEND Orthopaedic Surgery
PROC: 0SBD0ZZ Excision of Left Knee Joint, Open Approach (ICD-10-PCS; 2019-05-18)
PROC: 0SCD0ZZ Extirpation of Matter from Left Knee Joint, Open Approach (ICD-10-PCS; principal; 2019-05-18 21:00)
DX: M96.840 Postprocedural hematoma of a musculoskeletal structure following a musculoskeletal system procedure (principal); E87.1 Hypo-osmolality and hyponatremia; I10 Essential (primary) hypertension; E11.9 Type 2 diabetes mellitus without complications; M19.90 Unspecified osteoarthritis, unspecified site; D64.9 Anemia, unspecified; E66.9 Obesity, unspecified; Z68.35 Body mass index [BMI] 35.0-35.9, adult; E83.42 Hypomagnesemia

== ENCOUNTER 2019-06-28 11:00 | Day surgery (SDC) | payer OTHER, MEDICAID ==
[~2019-06-28] VITALS: Ht 162.6 cm; Wt 93.4 kg
[2019-06-28 11:41] LABS: BASOPHILS 0.5 % (0-2); EOSINOPHILS 2.4 % (0-7); HEMATOCRIT 39.1 % (36.0-48.0); HEMOGLOBIN 12.1 g/dL (12-16); IMMATURE GRANULOCYTES 0.2 % (0-5); LYMPHOCYTES 30.8 % (15-50); MCH 29.1 pg (26.0-34.0); MCHC 30.9 g/dL (31.0-37.0); MEAN PLATELET VOLUME 8.7 fL (7.4-10.4); MONOCYTES 7.9 % (2-11); NEUTROPHILS 58.2 % (40-80); PLATELET COUNT 353 10x3/uL (130-400); RBC 4.16 10x6/uL (4.00-5.40); RDW 16.4 % (11.5-14.5); WBC 5.8 10x3/uL (4.8-10.8)
[2019-06-28 11:55] LABS: ANION GAP 10.5 mmol/L (8-16); CALCIUM 9.2 mg/dL (8.5-10.1); CARBON DIOXIDE 31.2 mmol/L (21.0-32.0); CREATININE - SERUM 0.9 mg/dL (0.6-1.3); POTASSIUM - SERUM 4.7 mmol/L (3.5-5.1)
[2019-06-28] MEDS ORDERED: CIPRO500 MG PO ×2 (12:18→16:11)
[2019-06-28] MEDS ORDERED: ZOFRAN ODT4 MG/UDTAB (12:18)
[2019-06-28 12:40] VITALS: BP 139/59; Ht 162.6 cm; Wt 93.4 kg
[2019-06-28] MEDS ORDERED: ZOFRAN ODT4 MG/UDTAB PO (16:11)
[2019-06-28] MEDS ORDERED: VISTARIL50 MG PO (16:12)
[2019-06-28] MEDS ORDERED: HYDROCODON-ACE1 EA10 PO (16:12)
[2019-06-28] MEDS ORDERED: DOXYCYCLINE HY100 M2 PO (16:14)
--- NOTE | 2019-06-29 10:05 | OP ---
PATIENT NAME: THAI DYSON MEDICAL RECORD: [id number] :[birth year] LOCATION:D.OPS ADMISSION DATE: SURGEON: ONEAL JAQUEZ DO DATE OF OPERATION: 06/28/2019 PROCEDURE PERFORMED: Left knee incision and debridement PREOPERATIVE DIAGNOSIS: Left knee wound dehiscence and hematoma. POSTOPERATIVE DIAGNOSIS: Left knee wound dehiscence and hematoma. INDICATIONS: Ms. Dyson is a 69-year-old female who has had a left knee first started with a bursectomy and was quite large. 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 We did hematoma evacuation; put a wound VAC in to draw it all out to make sure we are close. Eventually, the wound got smaller and smaller, but at the superior pole of the incision, she had a dehiscence and then at the inferior pole had not closed completely. I told her she had some redness as well. It was likely infected. I told her we could do an I and D and that we would use Sudhakar graft to get to close and due to the fact that she did not have any hardware and should eradicate any infection she might have, but we would take cultures. She is okay with that as well as risk for further infection, bleeding, damage to nerves and vessels, need for continued IV antibiotics or oral antibiotics and she signed the consent. SURGEON: Oneal Jaquez DO DESCRIPTION OF PROCEDURE: The patient was taken to the operative suite, laid in supine position, given general anesthetic and she was given a gram of vancomycin preoperatively. Left lower extremity was then prepped and draped in sterile fashion. A timeout was performed and everyone was in agreeance of the correct side, site, patient and procedure. I then began by ellipsing out the dehiscence of the proximal balbir incision and carried out the incision down to the inferior pole with a wound VAC. Sponge had been stuffed. The wound was then opened up and the capsule of knee was exposed. She had cultures that were taken initially on the open scanner and then deep also on top of the capsule of the knee. This was then debrided with a curette, the brush and irrigation and then povidone iodine mixture with 500 mL of normal saline sat in the knee for 3 minutes. This was then irrigated out and debrided some more and then closed the skin after ellipsing out the 2 open areas distal and proximal poles, approximated the wound with a 2-0 Monocryl in inverted interrupted fashion and then the Stravix graft was cut in 3 strips and placed longitudinally in the wound and then this was sutured in with 2-0 nylon in a horizontal mattress fashion. She was then dressed with Adaptic, 4 x 4s, ABD, Webril, Ronald wrap and awakened and taken to recovery in stable condition. Blood loss approximately 150 mL. COMPLICATIONS: None. TRANSINT:[id number] Voice Confirmation ID: [id number] DOCUMENT ID: [id number] OPERATIVE REPORT [id number] THAI DYSON MICHAEL D, DO at 1005 CC: [id number] DICTATION DATE: 06/28/19 1608 [facility] FIRE MARSHAL: 06/28/19 1824 [facility] 06/28/19 [id number] [place] [address]
== END 2019-06-28 17:29 | disposition home or self-care (01) ==
LOC: D.OPS 11:00
PROVIDERS: Anesthesiology; ATTEND Orthopaedic Surgery
DX: T81.30XA Disruption of wound, unspecified, initial encounter (principal); S81.002A Unspecified open wound, left knee, initial encounter; X58.XXXA Exposure to other specified factors, initial encounter

== ENCOUNTER 2019-09-03 06:05 | Inpatient (IN) | payer OTHER, MEDICAID ==
[2019-09-02 13:43] LABS: HEMOGLOBIN 12.7 g/dL (12-16); MCHC 32.6 g/dL (31.0-37.0); RBC 4.24 10x6/uL (4.00-5.40); WBC 6.9 10x3/uL (4.8-10.8)
[2019-09-02 13:54] LABS: CALC OSMOLALITY 268 mosm/kg (275-300); CALCIUM 9.7 mg/dL (8.5-10.1); CARBON DIOXIDE 29.7 mmol/L (21.0-32.0); CHLORIDE - SERUM 100 mmol/L (98-107); CREATININE - SERUM 0.7 mg/dL (0.6-1.3); GLUCOSE 105 mg/dL (74-106); SODIUM 135 mmol/L (136-145); UREA NITROGEN 10 mg/dL (7-18); eGFR NON AFRICAN AMERICAN 88 mL/min (90-120)
[2019-09-03] VITALS (9 sets, daily range): BP systolic 102–131; BP diastolic 57–83; BMI 35.4; BMI 33.3
[~2019-09-03] VITALS: Ht 162.6 cm; Wt 88.0 kg
[~2019-09-03 06:05] MED LIST changes: +CIPRO500 MG PO; +DOXYCYCLINE HY100 M2 PO; +HYDROCODON-ACE1 EA10 PO; +VISTARIL50 MG PO; +ZOFRAN ODT4 MG/UDTAB; +ZOFRAN ODT4 MG/UDTAB PO
--- NOTE | 2019-09-03 13:15 | NUR ---
PT TO ROOM 1206. RECOVERY NURSE IMMEDIATELY ASSISTED PT TO BATHROOM. PT VOIDED. BACK TO BED. RIGHT ARM IN SLING. IV TO LEFT HAND. 1/2NS INFUSING AT 50ML/HR. PT ALERT AND ORIENTED. WILL CONTINUE TO MONITOR.
--- NOTE | 2019-09-03 15:12 | MORECARE ---
CASE MANAGEMENT DISCHARGE SUMMARY PATIENT: THAI DYSON UNIT: [id number] ADM DATE: 09/03/19 AGE: 69 : 52 SEX: F ROOM/BED: D.1206 AUTHOR: GEORGIE,DOC PHYSICIAN: REFERRING PHYSICIAN: ULISES JAQUEZ DO DATE OF SERVICE: 09/03/19 Discharge Plan Patient Name: THAI DYSON Facility: [facility]:[place] : 1950 Planned Disposition: Anticipated Discharge Date: Discharge Date: Expected LOS: Initial Reviewer: [id number] Initial Review Date: 09/03/2019 Generated: 09/03/19 4:12 pm DCP- Discharge Planning Updated by [id number]: Adele Tomlin on 09/03/19 1:[address] Plan: Home with [facility]. CM will request an aide to assist with personal care upon DC. CM met with patient to discuss initial discharge planning. Patient is in agreement to proceed with the assessment. Patient reports that she lives at home alone, independently with her 2 cats. Patient is alert/oriented. Stairs/steps: 1. PCP: Dr. Gricelda Jones, . Pharmacy: [facility]. Patient states she has been able to obtain all of her prescribed medications. HHS: Yes. [facility] current. ANDREAS signed to resume care. DME: walker, 1 grab bar in bathroom. Patient does not give permission to speak with family members. Emergency contact: Judy Bender (dtr) [phone]. Patient is Partially independent with all ADL's, medication management SIENE MAKER. CM discussed the availability of HH, Rehab, DME services. Patient agrees to [facility] upon DC, feels safe returning to previous environment. Patient denies being hospitalized within the past 30 days. Patient denies the use of community resources SIENE MAKER. Transportation at time of discharge: Nicholas, from [facility]. CM will assist with DC needs/plans. Coverage Notice Reviewer: [id number] - Adele Tomlin Notice Issued Date-Time: 09/03/2019 14:59 Notice Type: Patient Choice Letter Notice Delivered To: Patient Relationship to Patient: Self Pulmonary Fellow Name: Thai Dyson Delivery Method: HAND - Hand Delivered Susan Days: Prior Verbal Notification: Recipient Understood Notice: Yes Recipient Signature: Yes Med Rec Note Co-signed by Attending: Coverage Notice Comment: Patient choice for [facility] signed by patient, original given to patient. Original placed on the chart. Patient Name: THAI DYSON Page [phone] at 1512 All edits/amendments must be made on the electronic document DICTATION DATE: 09/03/191511 WELD LAY OUT WORKER: BRITTANY 09/03/191511 RPT#: [id number] DC DATE: STATUS: ADM IN [facility] [address] [place] [address] END OF REPORT
--- NOTE | 2019-09-03 15:27 | MORECARE ---
CASE MANAGEMENT DISCHARGE SUMMARY PATIENT: THAI DYSON UNIT: [id number] ADM DATE: 09/03/19 AGE: 69 : 52 SEX: F ROOM/BED: D.1206 AUTHOR: GEORGIE,DOC PHYSICIAN: REFERRING PHYSICIAN: ULISES JAQUEZ DO DATE OF SERVICE: 09/03/19 Discharge Plan Patient Name: THAI DYSON Facility: [facility]:[place] : 1950 Planned Disposition: Anticipated Discharge Date: Discharge Date: Expected LOS: Initial Reviewer: [email or web address] Initial Review Date: 09/03/2019 Generated: 09/03/19 4:27 pm DCP- Discharge Planning Updated by [email or web address]: Adele Tomlin on 09/03/19 2:[address] CM contacted Florencia with [place] [phone] to resume HHC upon DC. Also request an aide for personal care. Faxed H/P, Face sheet, Surgical report. DCP- Discharge Planning Updated by [id number]: Adele Tomlin on 09/03/19 1:[address] Plan: Home with [facility]. CM will request an aide to assist with personal care upon DC. CM met with patient to discuss initial discharge planning. Patient is in agreement to proceed with the assessment. Patient reports that she lives at home alone, independently with her 2 cats. Patient is alert/oriented. Stairs/steps: 1. PCP: Dr. Gricelda Jones, . Pharmacy: [facility]. Patient states she has been able to obtain all of her prescribed medications. HHS: Yes. [place] current. ANDREAS signed to resume care. DME: walker, 1 grab bar in bathroom. Patient does not give permission to speak with family members. Emergency contact: Judy Bender (dtr) [phone]. 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 CM discussed the availability of HH, Rehab, DME services. Patient agrees to [facility] upon DC, feels safe returning to previous environment. Patient denies being hospitalized within the past 30 days. Patient denies the use of community resources CITY DISPATCH SUPERVISOR. Transportation at time of discharge: Nicholas, from [facility]. CM will assist with DC needs/plans. Coverage Notice Reviewer: [id number] Dell Adele Chianglroy Notice Issued Date-Time: 09/03/2019 14:59 Notice Type: Patient Choice Letter Notice Delivered To: Patient Relationship to Patient: Self Rocket Propellant Plant Supervisor Name: Thai Dyson Delivery Method: HAND - Hand Delivered Susan Days: Prior Verbal Notification: Recipient Understood Notice: Yes Recipient Signature: Yes Med Rec Note Co-signed by Attending: Coverage Notice Comment: Patient choice for [facility] signed by patient, original given to patient. Original placed on the chart. Last DP export: 09/03/19 2:12 p Patient Name: THAI DYSON Page [phone] at 1527 All edits/amendments must be made on the electronic document DICTATION DATE: 09/03/191526 CONTRACTS DIRECTOR: BRITTANY 09/03/191526 RPT#: [id number] DC DATE: STATUS: ADM IN [facility] [address] [place] [address] END OF REPORT
--- NOTE | 2019-09-03 15:41 | MORECARE ---
CASE MANAGEMENT DISCHARGE SUMMARY PATIENT: THAI DYSON UNIT: [id number] ADM DATE: 09/03/19 AGE: 69 : 54 SEX: F ROOM/BED: D.1206 AUTHOR: GEORGIE,DOC PHYSICIAN: REFERRING PHYSICIAN: ULISES JAQUEZ DO DATE OF SERVICE: 09/03/19 Discharge Plan Patient Name: THAI DYSON Facility: [facility]:[place] : 1950 Planned Disposition: Anticipated Discharge Date: Discharge Date: Expected LOS: Initial Reviewer: [email or web address] Initial Review Date: 09/03/2019 Generated: 09/03/19 4:40 pm DCP- Discharge Planning Updated by [id number]: Adele Tomlin on 09/03/19 2:[address] CM contacted Florencia with [place] [facility] [phone] to resume HHC upon DC. Also request an aide for personal care. Faxed H/P, Face sheet, Surgical report. DCP- Discharge Planning Updated by [email or web address]: Adele Tomlin on 09/03/19 1:[address] Plan: Home with [facility]. CM will request an aide to assist with personal care upon DC. CM met with patient to discuss initial discharge planning. Patient is in agreement to proceed with the assessment. Patient reports that she lives at home alone, independently with her 2 cats. Patient is alert/oriented. Stairs/steps: 1. PCP: Dr. Gricelda Jones, . Pharmacy: [facility]. Patient states she has been able to obtain all of her prescribed medications. HHS: Yes. [place] [facility] current. ANDREAS signed to resume care. DME: walker, 1 grab bar in bathroom. Patient does not give permission to speak with family members. Emergency contact: Judy Bender (dtr) [phone]. Patient is Partially independent with all ADL's, medication management BIG DATA ADMIN. CM discussed the availability of HH, Rehab, DME services. Patient agrees to [facility] upon DC, feels safe returning to previous environment. Patient denies being hospitalized within the past 30 days. Patient denies the use of community resources BIG DATA ADMIN. Transportation at time of discharge: Nicholas, from [facility]. CM will assist with DC needs/plans. Coverage Notice Reviewer: [id number] Dell Tomlin Notice Issued Date-Time: 09/03/2019 14:59 Notice Type: Patient Choice Letter Notice Delivered To: Patient Relationship to Patient: Self Coronary Care Unit Nurse Name: Thai Dyson Delivery Method: HAND - Hand Delivered Susan Days: Prior Verbal Notification: Recipient Understood Notice: Yes Recipient Signature: Yes Med Rec Note Co-signed by Attending: Coverage Notice Comment: Patient choice for [facility] signed by patient, original given to patient. Original placed on the chart. Reviewer: [id number] Dell Adele Nabor Notice Issued Date-Time: 09/03/2019 15:30 Notice Type: IM Admission Notice Notice Delivered To: Patient Relationship to Patient: Self Coronary Care Unit Nurse Name: Wendy Dyson Delivery Method: HAND - Hand Delivered Susan Days: Prior Verbal Notification: Recipient Understood Notice: Yes Recipient Signature: Yes Med Rec Note Co-signed by Attending: Coverage Notice Comment: Admit IMM signed by patient, original given to her and original placed on the chart. Last DP export: 09/03/19 2:27 p Patient Name: THAI DYSON Page [id number] at 1541 All edits/amendments must be made on the electronic document DICTATION DATE: 09/03/19 154 MAIL SORTER: BRITTANY 09/03/19 154 RPT#: [id number] DC DATE: STATUS: ADM IN [facility] [address] [place] [address] END OF REPORT
--- NOTE | 2019-09-03 17:19 | MORECARE ---
CASE MANAGEMENT DISCHARGE SUMMARY PATIENT: THAI DYSON UNIT: [id number] ADM DATE: 09/03/19 AGE: 69 : 52 SEX: F ROOM/BED: D.1206 AUTHOR: GEORGIE,DOC PHYSICIAN: REFERRING PHYSICIAN: ULISES JAQUEZ DO DATE OF SERVICE: 09/03/19 Discharge Plan Patient Name: THAI DYSON Facility: [facility]:[place] : 1950 Planned Disposition: Anticipated Discharge Date: Discharge Date: Expected LOS: Initial Reviewer: [id number] Initial Review Date: 09/03/2019 Generated: 09/03/19 6:19 pm DCP- Discharge Planning Updated by [email or web address]: Adele Tomlin on 09/03/19 2:[address] CM contacted Florencia with [facility] @[phone] to resume HHC upon DC. Also request an aide for personal care. Faxed H/P, Face sheet, Surgical report. DCP- Discharge Planning Updated by [email or web address]: Adele Tomlin on 09/03/19 1:[address] Plan: Home with [facility]. CM will request an aide to assist with personal care upon DC. CM met with patient to discuss initial discharge planning. Patient is in agreement to proceed with the assessment. Patient reports that she lives at home alone, independently with her 2 cats. Patient is alert/oriented. Stairs/steps: 1. PCP: Dr. Gricelda Jones, . Pharmacy: [facility]. Patient states she has been able to obtain all of her prescribed medications. HHS: Yes. [facility] current. ANDREAS signed to resume care. DME: walker, 1 grab bar in bathroom. Patient does not give permission to speak with family members. Emergency contact: Judy Bender (dtr) [phone]. 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 CM discussed the availability of HH, Rehab, DME services. Patient agrees to [facility] upon DC, feels safe returning to previous environment. Patient denies being hospitalized within the past 30 days. Patient denies the use of community resources MOVIE ACTOR. Transportation at time of discharge: Nicholas, from [facility]. CM will assist with DC needs/plans. Coverage Notice Reviewer: [id number] Dell Tomlin Notice Issued Date-Time: 09/03/2019 14:59 Notice Type: Patient Choice Letter Notice Delivered To: Patient Relationship to Patient: Self Pm Technician Name: Thai Dyson Delivery Method: HAND - Hand Delivered Susan Days: Prior Verbal Notification: Recipient Understood Notice: Yes Recipient Signature: Yes Med Rec Note Co-signed by Attending: Coverage Notice Comment: Patient choice for [facility]HS signed by patient, original given to patient. Original placed on the chart. Reviewer: [id number] Dell Adele Nabor Notice Issued Date-Time: 09/03/2019 15:30 Notice Type: IM Admission Notice Notice Delivered To: Patient Relationship to Patient: Self Pm Technician Name: Wendy Dyson Delivery Method: HAND - Hand Delivered Susan Days: Prior Verbal Notification: Recipient Understood Notice: Yes Recipient Signature: Yes Med Rec Note Co-signed by Attending: Coverage Notice Comment: Admit IMM signed by patient, original given to her and original placed on the chart. Last DP export: 09/03/19 2:41 p Patient Name: THAI DYSON Page [phone] at 1719 All edits/amendments must be made on the electronic document DICTATION DATE: 09/03/191718 HYDRAMATIC SPECIALIST: BRITTANY 09/03/191718 RPT#: [id number] DC DATE: STATUS: ADM IN [facility] [address] [place] [address] END OF REPORT
--- NOTE | 2019-09-03 18:13 | MORECARE ---
CASE MANAGEMENT DISCHARGE SUMMARY PATIENT: THAI DYSON UNIT: [id number] ADM DATE: 09/03/19 AGE: 69 : 52 SEX: F ROOM/BED: D.1206 AUTHOR: GEORGIE,DOC PHYSICIAN: REFERRING PHYSICIAN: ULISES JAQUEZ DO DATE OF SERVICE: 09/03/19 Discharge Plan Patient Name: THAI DYSON Facility: [facility]:[place] : 1950 Planned Disposition: Anticipated Discharge Date: Discharge Date: Expected LOS: Initial Reviewer: [email or web address] Initial Review Date: 09/03/2019 Generated: 09/03/19 7:12 pm DCP- Discharge Planning Updated by [email or web address]: Adele Tomlin on 09/03/19 2:[address] CM contacted Florencia with [facility] @[phone] to resume HHC upon DC. Also request an aide for personal care. Faxed H/P, Face sheet, Surgical report. DCP- Discharge Planning Updated by [email or web address]: Adele Tomlin on 09/03/19 1:[address] Plan: Home with [facility]. CM will request an aide to assist with personal care upon DC. CM met with patient to discuss initial discharge planning. Patient is in agreement to proceed with the assessment. Patient reports that she lives at home alone, independently with her 2 cats. Patient is alert/oriented. Stairs/steps: 1. PCP: Dr. Gricelda Jones, . Pharmacy: [facility]. Patient states she has been able to obtain all of her prescribed medications. HHS: Yes. [facility] current. ANDREAS signed to resume care. DME: walker, 1 grab bar in bathroom. Patient does not give permission to speak with family members. Emergency contact: Judy Bender (dtr) [phone]. 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 CM discussed the availability of HH, Rehab, DME services. Patient agrees to [facility] upon DC, feels safe returning to previous environment. Patient denies being hospitalized within the past 30 days. Patient denies the use of community resources DERMATOLOGIST MANAGING PARTNER. Transportation at time of discharge: Nicholas, from [facility]. CM will assist with DC needs/plans. Coverage Notice Reviewer: [id number] Dell Tomlin Notice Issued Date-Time: 09/03/2019 14:59 Notice Type: Patient Choice Letter Notice Delivered To: Patient Relationship to Patient: Self Menhaden Fishing Crew Member Name: Thai Dyson Delivery Method: HAND - Hand Delivered Susan Days: Prior Verbal Notification: Recipient Understood Notice: Yes Recipient Signature: Yes Med Rec Note Co-signed by Attending: Coverage Notice Comment: Patient choice for [facility] HHS signed by patient, original given to patient. Original placed on the chart. Reviewer: [id number] Dell Adele Nabor Notice Issued Date-Time: 09/03/2019 15:30 Notice Type: IM Admission Notice Notice Delivered To: Patient Relationship to Patient: Self [employer]haden Fishing Crew Member Name: Wendy Dyson Delivery Method: HAND - Hand Delivered Susan Days: Prior Verbal Notification: Recipient Understood Notice: Yes Recipient Signature: Yes Med Rec Note Co-signed by Attending: Coverage Notice Comment: Admit IMM signed by patient, original given to her and original placed on the chart. Last DP export: 09/03/19 4:19 p Patient Name: THAI DYSON Page 88209 at 1813 All edits/amendments must be made on the electronic document DICTATION DATE: 09/03/191811 CLOTH GRADER SUPERVISOR: BRITTANY 09/03/191811 RPT#: [id number] DC DATE: STATUS: ADM IN [facility] [address] [place] [address] END OF REPORT
--- NOTE | 2019-09-03 19:20 | NUR ---
PT SITTING UP IN BED WITHOUT DISTRESS, AOX4. RIGHT ARM IN SLING, PROPPED ON PILLOW. DRESSING TO INCISION CDI. OFFERED PT ICE FOR ARM, REFUSED AT THIS TIME. ASSISTED PT TO BATHROOM TO VOID AND BACK TO BED. IV LEFT HAND INFUSING 1/2NS @ 50. PROVIDED WATER. DENIES OTHER NEEDS. CL IN REACH, WILL CTM
--- NOTE | 2019-09-03 20:10 | NUR ---
FSBS 137, NO COVERAGE PER SS. GAVE PT VISTARIL FOR PAIN 7/10 IN RIGHT ARM AND LEFT LEG. PT WITH OLD HEALING SCAR TO LEFT LEG, PT STATES FROM PAST SURGERY AND SHE HAS CHRONIC PAIN IN THAT LEG. O2 2L/NC. ASSISTED PT TO BATHROOM AND BACK TO BED. PROVIDED WATER, POPSICLE, AND HAND SKY DIVER. REFUSES SCDS. DENIES OTHER NEEDS. CL IN REACH, WILL CTM
--- NOTE | 2019-09-03 21:24 | OP ---
PATIENT NAME: THAI DYSON MEDICAL RECORD: [id number] :54 LOCATION:D.M3 D.1206 ADMISSION DATE:09/03/19 SURGEON: ONEAL JAQUEZ DO DATE OF OPERATION: 09/03/2019 PROCEDURE PERFORMED: Revision ORIF of the right humeral shaft. 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 INDICATIONS: Ms. Dyson is a 69-year-old female who has complained of right arm pain for quite some time. She fell and broke her humerus about a year and a half ago had a mirella put in and fell and broke it as this was then plated. This was at a different facility. She then presented to me, had to treat another injury on her and she wants something done as it hurt her, got x-rays and saw that the fracture has not healed and the plate was loose proximally as there were windshield wipering noted of the screws. I informed her that we would work it up for infection and we did. There is no elevated ESR, CRP, or white count and did take cultures during the procedure. There were no neutrophils per high power field during the procedure, but then we would compress it and try to get to heal. She is aware of the risks including infection, bleeding, nonunion, malunion, need for further surgery, continued pain, injury to nerves in the area, especially the radial nerve. I informed her of the big risk of that and she was okay with that and signed the consent. SURGEON: Oneal Jaquez DO DESCRIPTION OF PROCEDURE: The patient had block by anesthesia in the preoperative area and taken to operative suite in the supine position, given general anesthetic and intubated. She was given 1 of vancomycin prior to starting. We then set her up in the beach chair position. The right arm was prepped and draped in sterile fashion. A timeout was performed and everyone was in agreement with the correct side, site, patient and procedure. Then, I did careful dissection down to the humerus. Once I was at the humerus, I took cultures and sent some tissue and neutrophils per high power field. This was negative. I then removed the plate and did a step cut osteotomy on the humerus and fixed the plate proximally and then did a compression, 2 compression sites on the plate distally to compress the osteotomy site. I then filled more holes proximally and more distally as well. The radial nerve was encountered and protected distally. I then put DBX 2.5 cc at the osteotomy site and 5 cc of bone filler calcium phosphate in the old screw holes after I cleaned them out. The site had been irrigated prior to this and then antibiotic powder vancomycin was put in the wound. We then closed the wound with a 2-0 Vicryl in interrupted fashion and 4-0 Monocryl in the skin and then Prineo glue on the skin. She was then awakened and taken to recovery in stable condition. Blood loss was approximately 200 mL. COMPLICATIONS: None. TRANSINT:[id number] Voice Confirmation ID: [id number] DOCUMENT ID: [id number] OPERATIVE REPORT [id number] THAI DYSON MICHAEL D, DO at 2124 CC: [id number] DICTATION DATE: 09/03/19 1225 PROJECT MANAGEMENT PROFESSOR: 09/03/192019 ADM IN [facility] [address] [place] [address]
--- NOTE | 2019-09-03 21:59 | NUR ---
PT HAVING 9/10 PAIN IN RIGHT ARM, GAVE DILAUDID ORDERED. DENIES OTHER NEEDS, WILL CTM
--- NOTE | 2019-09-03 22:40 | NUR ---
PT HAVING TROUBLE RELAXING TO GO TO SLEEP. STATES SHE USUALLY TAKES ATIVAN AT HOME. SPOKE WITH NNEKA PINO APN, ATIVAN ORDERED. GAVE ORDERED
[2019-09-04] VITALS: BP 133/55
--- NOTE | 2019-09-04 00:10 | NUR ---
PT STATES PAIN 9/10 IN ARM AND LEGS, GAVE OXY ORDERED. DENIES OTHER NEEDS. WILL CTM
--- NOTE | 2019-09-04 02:46 | NUR ---
PT WITH PAIN 10/10 IN RIGHT ARM, MOANING LOUDLY. GAVE PT DILAUDID, APPLIED ICE PACK TO RIGHT ARM. WILL CTM
[2019-09-04 04:30] VITALS: BP 130/70
[2019-09-04 06:26] LABS: BASOPHILS 0.1 % (0-2); EOSINOPHILS 0.4 % (0-7); HEMATOCRIT 35.1 % (36.0-48.0); HEMOGLOBIN 10.8 g/dL (12-16); IMMATURE GRANULOCYTES 0.2 % (0-5); LYMPHOCYTES 17.6 % (15-50); MCHC 30.8 g/dL (31.0-37.0); MEAN PLATELET VOLUME 9.6 fL (7.4-10.4); MONOCYTES 8.9 % (2-11); NEUTROPHILS 72.8 % (40-80); PLATELET COUNT 267 10x3/uL (130-400); RBC 3.72 10x6/uL (4.00-5.40); RDW 16.2 % (11.5-14.5)
[2019-09-04 06:33] LABS: CALC OSMOLALITY 271 mosm/kg (275-300); CALCIUM 8.2 mg/dL (8.5-10.1); CARBON DIOXIDE 26.4 mmol/L (21.0-32.0); CHLORIDE - SERUM 100 mmol/L (98-107); CREATININE - SERUM 0.8 mg/dL (0.6-1.3); POTASSIUM - SERUM 4.3 mmol/L (3.5-5.1); SODIUM 135 mmol/L (136-145); UREA NITROGEN 9 mg/dL (7-18); eGFR NON AFRICAN AMERICAN 76 mL/min (90-120)
[2019-09-04 06:39] LABS: GLUCOSE 161 mg/dL (74-106)
[2019-09-04 06:41] LABS: MCV 94.4 fL (80.0-100.0); WBC 9.9 10x3/uL (4.8-10.8)
[2019-09-04 09:20] VITALS: BP 132/63
--- NOTE | 2019-09-04 09:57 | NUR ---
PT ALERT X 4. BREATH SOUNDS SLIGHTLY DIMINISHED BILAT, ENCOURAGED INCENTIVE SPIROMETER, 2L O2 PER NC. IV TO LEFT HAND, PATENT, DRESSING CDI. SLING TO RIGHT ARM, DRESSING CDI. PT REPORTING PAIN OF 8/10, WILL MONITOR. BED LOW, CALL LIGHT IN REACH. NO OTHER NEEDS AT THIS TIME.
[2019-09-04 10:28] VITALS: Ht 162.6 cm; Wt 88.0 kg
[2019-09-04] MEDS ORDERED: KEFLEX500 MG PO (10:39)
[2019-09-04] MEDS ORDERED: VISTARIL50 MG PO (10:39)
[2019-09-04] MEDS ORDERED: OXYCODONE HCL10 MG PO (10:39)
--- NOTE | 2019-09-04 17:59 | MORECARE ---
CASE MANAGEMENT DISCHARGE SUMMARY PATIENT: THAI DYSON UNIT: [id number] ADM DATE: 09/03/19 AGE: 69 : 52 SEX: F ROOM/BED: D.1206 AUTHOR: GEORGIE,DOC PHYSICIAN: REFERRING PHYSICIAN: ULISES JAQUEZ DO DATE OF SERVICE: 09/04/19 Discharge Plan Patient Name: THAI DYSON Facility: [facility]:[place] : 1950 Planned Disposition: Anticipated Discharge Date: Discharge Date: Expected LOS: Initial Reviewer: [id number] Initial Review Date: 09/03/2019 Generated: 09/04/19 6:59 pm DCP- Discharge Planning Updated by [email or web address]: Adele Tomlin on 09/03/19 2:[address] CM contacted Florencia with [place] [facility] [phone] to resume HHC upon DC. Also request an aide for personal care. Faxed H/P, Face sheet, Surgical report. DCP- Discharge Planning Updated by [email or web address]: Adele Tomlin on 09/03/19 1:[address] Plan: Home with [facility]. CM will request an aide to assist with personal care upon DC. CM met with patient to discuss initial discharge planning. Patient is in agreement to proceed with the assessment. Patient reports that she lives at home alone, independently with her 2 cats. Patient is alert/oriented. Stairs/steps: 1. PCP: Dr. Gricelda Jones, . Pharmacy: [facility]. Patient states she has been able to obtain all of her prescribed medications. HHS: Yes. [facility] current. ANDREAS signed to resume care. DME: walker, 1 grab bar in bathroom. Patient does not give permission to speak with family members. Emergency contact: Judy Bender (dtr) [phone]. 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 CM discussed the availability of HH, Rehab, DME services. Patient agrees to [facility] upon DC, feels safe returning to previous environment. Patient denies being hospitalized within the past 30 days. Patient denies the use of community resources SALES INSPECTOR. Transportation at time of discharge: Nicholas, from [facility]. CM will assist with DC needs/plans. Coverage Notice Reviewer: [id number] Dell Tomlin Notice Issued Date-Time: 09/03/2019 14:59 Notice Type: Patient Choice Letter Notice Delivered To: Patient Relationship to Patient: Self Marketing Ambassador Name: Thai Dyson Delivery Method: HAND - Hand Delivered Susan Days: Prior Verbal Notification: Recipient Understood Notice: Yes Recipient Signature: Yes Med Rec Note Co-signed by Attending: Coverage Notice Comment: Patient choice for [facility]HS signed by patient, original given to patient. Original placed on the chart. Reviewer: [id number] Dell Adele Nabor Notice Issued Date-Time: 09/03/2019 15:30 Notice Type: IM Admission Notice Notice Delivered To: Patient Relationship to Patient: Self Marketing Ambassador Name: Wendy Dyson Delivery Method: HAND - Hand Delivered Susan Days: Prior Verbal Notification: Recipient Understood Notice: Yes Recipient Signature: Yes Med Rec Note Co-signed by Attending: Coverage Notice Comment: Admit IMM signed by patient, original given to her and original placed on the chart. Last DP export: 09/03/19 5:13 p Patient Name: THAI DYSON Page 23786 at 1759 All edits/amendments must be made on the electronic document DICTATION DATE: 09/04/191758 OIL WELL DRILLER: BRITTANY 09/04/191758 RPT#: [id number] DC DATE: STATUS: ADM IN [facility] [address] [place] [address] END OF REPORT
--- NOTE | 2019-09-04 18:08 | MORECARE ---
CASE MANAGEMENT DISCHARGE SUMMARY PATIENT: THAI DYSON UNIT: [id number] ADM DATE: 09/03/19 AGE: 69 : 52 SEX: F ROOM/BED: D.1206 AUTHOR: GEORGIE,DOC PHYSICIAN: REFERRING PHYSICIAN: ULISES JAQUEZ DO DATE OF SERVICE: 09/04/19 Discharge Plan Patient Name: THAI DYSON Facility: [facility]:[place] : 1950 Planned Disposition: Anticipated Discharge Date: Discharge Date: Expected LOS: Initial Reviewer: [email or web address] Initial Review Date: 09/03/2019 Generated: 09/04/19 7:08 pm DCP- Discharge Planning Updated by [email or web address]: Adele Tomlin on 09/03/19 2:[address] CM contacted Florencia with [place] [facility] [phone] to resume HHC upon DC. Also request an aide for personal care. Faxed H/P, Face sheet, Surgical report. DCP- Discharge Planning Updated by [email or web address]: Adele Tomlin on 09/03/19 1:[address] Plan: Home with [facility]. CM will request an aide to assist with personal care upon DC. CM met with patient to discuss initial discharge planning. Patient is in agreement to proceed with the assessment. Patient reports that she lives at home alone, independently with her 2 cats. Patient is alert/oriented. Stairs/steps: 1. PCP: Dr. Gricelda Jones, . Pharmacy: [facility]. Patient states she has been able to obtain all of her prescribed medications. HHS: Yes. [place] [facility] current. ANDREAS signed to resume care. DME: walker, 1 grab bar in bathroom. Patient does not give permission to speak with family members. Emergency contact: Judy Bender (dtr) [phone]. 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 CM discussed the availability of HH, Rehab, DME services. Patient agrees to [facility] upon DC, feels safe returning to previous environment. Patient denies being hospitalized within the past 30 days. 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 Transportation at time of discharge: Nicholas, from [facility]. CM will assist with DC needs/plans. Coverage Notice Reviewer: [id number] Dell Tomlin Notice Issued Date-Time: 09/03/2019 14:59 Notice Type: Patient Choice Letter Notice Delivered To: Patient Relationship to Patient: Self Automation Qa Lead Name: Thai Dyson Delivery Method: HAND - Hand Delivered Susan Days: Prior Verbal Notification: Recipient Understood Notice: Yes Recipient Signature: Yes Med Rec Note Co-signed by Attending: Coverage Notice Comment: Patient choice for [facility]HS signed by patient, original given to patient. Original placed on the chart. Reviewer: [id number] Dell Adele Nabor Notice Issued Date-Time: 09/03/2019 15:30 Notice Type: IM Admission Notice Notice Delivered To: Patient Relationship to Patient: Self Automation Qa Lead Name: Wendy Dyson Delivery Method: HAND - Hand Delivered Susan Days: Prior Verbal Notification: Recipient Understood Notice: Yes Recipient Signature: Yes Med Rec Note Co-signed by Attending: Coverage Notice Comment: Admit IMM signed by patient, original given to her and original placed on the chart. Last DP export: 09/04/19 4:59 p Patient Name: THAI DYSON Page [phone] at 1808 All edits/amendments must be made on the electronic document DICTATION DATE: 09/04/191807 PUBLIC MESSAGE SERVICE SUPERVISOR: BRITTANY 09/04/191807 RPT#: [id number] DC DATE: STATUS: ADM IN [facility] [address] [place] [address] END OF REPORT
--- NOTE | 2019-09-04 19:25 | NUR ---
PT SITTING UP IN BED WITHOUT DISTRESS, AOX4. IV LEFT HAND SL, FLUSHES EASILY. NO REDNESS OR SWELLING. REFUSES SCDS. RIGHT ARM IN SLING. INCISION DRESSING CDI, SLIGHT SWELLING TO UPPER ARM. PT STATES PAIN 7/10, REQUESTING TYLENOL. GAVE ORDERED. ENCOURAGED TO USE INCENTIVE SPIROMETER. DENIES OTHER NEEDS. CL IN REACH, WILL CTM
[2019-09-04 19:45] VITALS: BP 133/61
--- NOTE | 2019-09-04 21:00 | NUR ---
PT UP TO BATHROOM AND BACK TO BED. STATES PAIN 7/10 IN RIGHT ARM. OXY GIVEN FOR PAIN. FSBS 189, REFUSED COVERAGE. REQUESTED AND GIVEN BILLY CRACKERS AND PUDDING. DENIES OTHER NEEDS. CL IN REACH, WILL CTM
[2019-09-05] VITALS: BP 141/56
--- NOTE | 2019-09-05 01:30 | NUR ---
PT STATES PAIN IN RIGHT ARM 9/10, GAVE OXY AND VISTARIL ORDERED. WILL CTM
[2019-09-05 03:55] VITALS: BP 146/70
[2019-09-05 06:43] LABS: CARBON DIOXIDE 27.4 mmol/L (21.0-32.0); CHLORIDE - SERUM 100 mmol/L (98-107); GLUCOSE 147 mg/dL (74-106); POTASSIUM - SERUM 4.7 mmol/L (3.5-5.1); SODIUM 135 mmol/L (136-145)
[2019-09-05 06:44] LABS: CALC OSMOLALITY 272 mosm/kg (275-300); CREATININE - SERUM 0.5 mg/dL (0.6-1.3); UREA NITROGEN 12 mg/dL (7-18); eGFR NON AFRICAN AMERICAN > 90 mL/min (90-120)
--- NOTE | 2019-09-05 07:32 | NUR ---
REC'D PT FROM PM SHIFT. PT IS A&O X4. SHOULDER IN SLING. PT CAN WIGGLE FINGERS AND CAP REFILL IS WNL. PT REQ AND REC'D PRN PAIN MEDICATION FOR PAIN 03/05 TO INCISION. PT IS UP AD LORI TO BR. PT DENIES FURTHER NEEDS. WCTM.
[2019-09-05 08:13] VITALS: BP 92/56
[2019-09-05 09:14] LABS: BILIRUBIN NEGATIVE (NEGATIVE); GLUCOSE NEGATIVE (NEGATIVE); KETONE NEGATIVE (NEGATIVE); NITRITE NEGATIVE (NEGATIVE); UROBILINOGEN NORMAL (NORMAL)
--- NOTE | 2019-09-05 10:00 | NUR ---
PT DISCHARGE INSTRUCTIONS REV'D AND PT STATES UNDERSTANDING. PT DRESSING CHANGED TO MEPILEX AG AND PT GIVEN 2 ADDITIONAL DRESSINGS. PT IV DC'D, CATH TIP INTACT. PT GIVEN 3 HARD SCRIPTS. PT ESCORTED OUT BY HOSPITAL VOLUNTEER. FRIEND OF PT TAKING HER HOME AT THIS TIME.
--- NOTE | 2019-09-05 13:43 | MORECARE ---
CASE MANAGEMENT DISCHARGE SUMMARY PATIENT: THAI DYSON UNIT: [id number] ADM DATE: 09/03/19 AGE: 69 : 54 SEX: F ROOM/BED: D.1206 AUTHOR: GEORGIE,DOC PHYSICIAN: REFERRING PHYSICIAN: ULISES JAQUEZ DO DATE OF SERVICE: 09/05/19 Discharge Plan Patient Name: THAI DYSON Facility: [facility]:[place] : 1950 Planned Disposition: Home Health Service Anticipated Discharge Date: 09/05/19 Discharge Date: 09/05/2019 Expected LOS: 2 Initial Reviewer: [id number] Initial Review Date: 09/03/2019 Generated: 09/05/19 2:43 pm DCP- Discharge Planning Updated by [id number]: Adele Tomlin on 09/03/19 2:[address] CM contacted Florencia with [place] [facility] [phone] to resume HHC upon DC. Also request an aide for personal care. Faxed H/P, Face sheet, Surgical report. DCP- Discharge Planning Updated by [id number]: Adele Tomlin on 09/03/19 1:[address] Plan: Home with [facility]. CM will request an aide to assist with personal care upon DC. CM met with patient to discuss initial discharge planning. Patient is in agreement to proceed with the assessment. Patient reports that she lives at home alone, independently with her 2 cats. Patient is alert/oriented. Stairs/steps: 1. PCP: Dr. Gricelda Jones, . Pharmacy: [facility]. Patient states she has been able to obtain all of her prescribed medications. HHS: Yes. [facility] current. ANDREAS signed to resume care. DME: walker, 1 grab bar in bathroom. Patient does not give permission to speak with family members. Emergency contact: Judy Bender (dtr) [phone]. 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 CM discussed the availability of HH, Rehab, DME services. Patient agrees to [facility] upon DC, feels safe returning to previous environment. Patient denies being hospitalized within the past 30 days. Patient denies the use of community resources BARBERING TEACHER. Transportation at time of discharge: Nicholas, from the medical center. CM will assist with DC needs/plans. Coverage Notice Reviewer: [id number] Dell Tomlin Notice Issued Date-Time: 09/03/2019 14:59 Notice Type: Patient Choice Letter Notice Delivered To: Patient Relationship to Patient: Self Cytogenetic Technologist Name: Thai Dyson Delivery Method: HAND - Hand Delivered Susan Days: Prior Verbal Notification: Recipient Understood Notice: Yes Recipient Signature: Yes Med Rec Note Co-signed by Attending: Coverage Notice Comment: Patient choice for [place] [facility] signed by patient, original given to patient. Original placed on the chart. Reviewer: [id number] Dell Tomlin Notice Issued Date-Time: 09/03/2019 15:30 Notice Type: IM Admission Notice Notice Delivered To: Patient Relationship to Patient: Self Cytogenetic Technologist Name: Wendy Dyson Delivery Method: HAND - Hand Delivered Susan Days: Prior Verbal Notification: Recipient Understood Notice: Yes Recipient Signature: Yes Med Rec Note Co-signed by Attending: Coverage Notice Comment: Admit IMM signed by patient, original given to her and original placed on the chart. Reviewer: [id number] Dell Tomlin Notice Issued Date-Time: 09/05/2019 10:02 Notice Type: IM Discharge Notice Notice Delivered To: Patient Relationship to Patient: Self Cytogenetic Technologist Name: Thai Dyson Delivery Method: HAND - Hand Delivered Susan Days: Prior Verbal Notification: Recipient Understood Notice: Yes Recipient Signature: Yes Med Rec Note Co-signed by Attending: Coverage Notice Comment: DC IMM delivered, signed by patient. Original to patient and one on chart. Last DP export: 09/04/19 5:08 p Patient Name: THAI DYSON Page [phone] at 1343 All edits/amendments must be made on the electronic document DICTATION DATE: 09/05/19 1343 ELECTRICIAN APPRENTICE: BRITTANY 09/05/19 1343 RPT#: [id number] DC DATE:09/05/19 STATUS: DIS IN [facility] [address] [place] [address] END OF REPORT
--- NOTE | 2019-09-05 13:53 | MORECARE ---
CASE MANAGEMENT DISCHARGE SUMMARY PATIENT: THAI MOREIRA UNIT: [id number] ADM DATE: 09/03/19 AGE: 69 : 52 SEX: F ROOM/BED: D.1206 AUTHOR: GEORGIE,DOC PHYSICIAN: REFERRING PHYSICIAN: ULISES JAQUEZ DO DATE OF SERVICE: 09/05/19 Discharge Plan Patient Name: THAI MOREIRA Facility: [facility]:[place] : 1950 Planned Disposition: Home Health Service Anticipated Discharge Date: 09/05/19 Discharge Date: 09/05/2019 Expected LOS: 2 Initial Reviewer: [email or web address] Initial Review Date: 09/03/2019 Generated: 09/05/19 2:52 pm DCP- Discharge Planning Updated by [email or web address]: Adele Tomlin on 09/03/19 2:[address] CM contacted Florencia with [facility] @[phone] to resume HHC upon DC. Also request an aide for personal care. Faxed H/P, Face sheet, Surgical report. DCP- Discharge Planning Updated by [email or web address]: Adele Tomlin on 09/03/19 1:[address] Plan: Home with [facility]. CM will request an aide to assist with personal care upon DC. CM met with patient to discuss initial discharge planning. Patient is in agreement to proceed with the assessment. Patient reports that she lives at home alone, independently with her 2 cats. Patient is alert/oriented. Stairs/steps: 1. PCP: Dr. Gricelda Jones, . [facility]acy[facility]. Patient states she has been able to obtain all of her prescribed medications. HHS: Yes. [facility] current. ANDREAS signed to resume care. DME: walker, 1 grab bar in bathroom. Patient does not give permission to speak with family members. Emergency contact: Judy Bender (dtr) [phone]. 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 CM discussed the availability of HH, Rehab, DME services. Patient agrees to [facility] upon DC, feels safe returning to previous environment. Patient denies being hospitalized within the past 30 days. Patient denies the use of community resources OLEOMARGARINE MAKER. Transportation at time of discharge: Nicholas, from [facility]. CM will assist with DC needs/plans. DCPIA - Discharge Planning Initial Assessment Updated by [email or web address]: Adele Tomlin on 09/05/19 1:46 pm * Is the patient Alert and Oriented? Yes * How many steps to enter\exit or inside your home? * PCP Dr. Gricelda Jones * [facility]acy [facility] * Preadmission Environment Home Alone * ADLs Independent * Equipment Walker * Other Equipment Grab bars bathroom * List name and contact numbers for known caregivers / representatives who currently or will assist patient after discharge: Judy Belljuan (dtr) [phone] * Verbal permission to speak to the caregivers and representatives has been obtained from the patient. No * Community resources currently utilized Home Health * Please name any agencies selected above. [facility] * Additional services required to return to the preadmission environment? Yes * Can the patient safely return to the preadmission environment? Yes * Has this patient been hospitalized within the prior 30 days at any hospital? No Coverage Notice Reviewer: [id number] Dell Tomlin Notice Issued Date-Time: 09/03/2019 14:59 Notice Type: Patient Choice Letter Notice Delivered To: Patient Relationship to Patient: Self Hair Machine Operator Name: Thai Butts Delivery Method: HAND - Hand Delivered Susan Days: Prior Verbal Notification: Recipient Understood Notice: Yes Recipient Signature: Yes Med Rec Note Co-signed by Attending: Coverage Notice Comment: Patient choice for [facility] signed by patient, original given to patient. Original placed on the chart. Reviewer: [id number] Dell Tomlin Notice Issued Date-Time: 09/03/2019 15:30 Notice Type: IM Admission Notice Notice Delivered To: Patient Relationship to Patient: Self Hair Machine Operator Name: Wendy Butts Delivery Method: HAND - Hand Delivered Susan Days: Prior Verbal Notification: Recipient Understood Notice: Yes Recipient Signature: Yes Med Rec Note Co-signed by Attending: Coverage Notice Comment: Admit IMM signed by patient, original given to her and original placed on the chart. Reviewer: [id number] Dell Tomlin Notice Issued Date-Time: 09/05/2019 10:02 Notice Type: IM Discharge Notice Notice Delivered To: Patient Relationship to Patient: Self Hair Machine Operator Name: Thai Butts Delivery Method: HAND - Hand Delivered Susan Days: Prior Verbal Notification: Recipient Understood Notice: Yes Recipient Signature: Yes Med Rec Note Co-signed by Attending: Coverage Notice Comment: DC IMM delivered, signed by patient. Original to patient and one on chart. Last DP export: 09/05/19 12:43 p Patient Name: THAI MOREIRA Page [id number] at 1353 All edits/amendments must be made on the electronic document DICTATION DATE: 09/05/19 1352 LOG MARKER: BRITTANY 09/05/19 1352 RPT#: [id number] DC DATE:09/05/19 STATUS: DIS IN [facility] [address] [place] [address] END OF REPORT
--- NOTE | 2019-09-05 15:33 | MORECARE ---
CASE MANAGEMENT DISCHARGE SUMMARY PATIENT: THAI DYSON UNIT: [id number] ADM DATE: 09/03/19 AGE: 69 : 52 SEX: F ROOM/BED: D.1206 AUTHOR: GEORGIE,DOC PHYSICIAN: REFERRING PHYSICIAN: ULISES JAQUEZ DO DATE OF SERVICE: 09/05/19 Discharge Plan Patient Name: THAI DYSON Facility: [facility]:[place] : 1950 Planned Disposition: Home Health Service Anticipated Discharge Date: 09/05/19 Discharge Date: 09/05/2019 Expected LOS: 2 Initial Reviewer: [id number] Initial Review Date: 09/03/2019 Generated: 09/05/19 4:32 pm Comments DCP- Discharge Planning Updated by [email or web address]: Adele Tomlin on 09/05/19 2:[address] CM notified [facility] of DC today and faxed DC paperwork and order. DCP- Discharge Planning Updated by [email or web address]: Adele Tomlin on 09/03/19 2:[address] CM contacted Florencia with [facility] @[phone] to resume HHC upon DC. Also request an aide for personal care. Faxed H/P, Face sheet, Surgical report. DCP- Discharge Planning Updated by [email or web address]: Adele Tomlin on 09/03/19 1:[address] Plan: Home with [facility]. CM will request an aide to assist with personal care upon DC. CM met with patient to discuss initial discharge planning. Patient is in agreement to proceed with the assessment. Patient reports that she lives at home alone, independently with her 2 cats. Patient is alert/oriented. Stairs/steps: 1. PCP: Dr. Gricelda Jones, . [facility]acy[facility]. Patient states she has been able to obtain all of her prescribed medications. HHS: Yes. [facility] current. ANDREAS signed to resume care. DME: walker, 1 grab bar in bathroom. Patient does not give permission to speak with family members. Emergency contact: Judy Bender (dtr) [phone]. 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 CM discussed the availability of HH, Rehab, DME services. Patient agrees to [facility] upon DC, feels safe returning to previous environment. Patient denies being hospitalized within the past 30 days. Patient denies the use of community resources MACHINE BENDER. Transportation at time of discharge: Nicholas, from [facility]. CM will assist with DC needs/plans. DCPIA - Discharge Planning Initial Assessment Updated by [email or web address]: Adele Tomlin on 09/05/19 1:46 pm * Is the patient Alert and Oriented? Yes * How many steps to enter\exit or inside your home? * PCP Dr. Gricelda Jones * [facility] * Preadmission Environment Home Alone * ADLs Independent * Equipment Walker * Other Equipment Grab bars bathroom * List name and contact numbers for known caregivers / representatives who currently or will assist patient after discharge: Judy Denton (dtr) [phone] * Verbal permission to speak to the caregivers and representatives has been obtained from the patient. No * Community resources currently utilized Home Health * Please name any agencies selected above. [facility] * Additional services required to return to the preadmission environment? Yes * Can the patient safely return to the preadmission environment? Yes * Has this patient been hospitalized within the prior 30 days at any hospital? No Coverage Notice Reviewer: [id number] Dell Tomlin Notice Issued Date-Time: 09/03/2019 14:59 Notice Type: Patient Choice Letter Notice Delivered To: Patient Relationship to Patient: Self Mortgage Advisor Name: Thai Dyson Delivery Method: HAND - Hand Delivered Susan Days: Prior Verbal Notification: Recipient Understood Notice: Yes Recipient Signature: Yes Med Rec Note Co-signed by Attending: Coverage Notice Comment: Patient choice for [facility] signed by patient, original given to patient. Original placed on the chart. Reviewer: [id number] Dell Tomlin Notice Issued Date-Time: 09/03/2019 15:30 Notice Type: IM Admission Notice Notice Delivered To: Patient Relationship to Patient: Self Mortgage Advisor Name: Wendy Dyson Delivery Method: HAND - Hand Delivered Susan Days: Prior Verbal Notification: Recipient Understood Notice: Yes Recipient Signature: Yes Med Rec Note Co-signed by Attending: Coverage Notice Comment: Admit IMM signed by patient, original given to her and original placed on the chart. Reviewer: [id number] - Adele Nabor Notice Issued Date-Time: 09/05/2019 10:02 Notice Type: IM Discharge Notice Notice Delivered To: Patient Relationship to Patient: Self Mortgage Advisor Name: Thai Dyson Delivery Method: HAND - Hand Delivered Susan Days: Prior Verbal Notification: Recipient Understood Notice: Yes Recipient Signature: Yes Med Rec Note Co-signed by Attending: Coverage Notice Comment: DC IMM delivered, signed by patient. Original to patient and one on chart. Last DP export: 09/05/19 12:53 p Patient Name: THAI DYSON Page [id number] at 1533 All edits/amendments must be made on the electronic document DICTATION DATE: 09/05/19 1532 TRANSPLANTER ORCHID: BRITTANY 09/05/19 1532 RPT#: [id number] DC DATE:09/05/19 STATUS: DIS IN [facility] [address] [place] [address] END OF REPORT
== END 2019-09-05 10:16 | disposition home health service (06) | DRG 493 ==
LOC: D.OPS 06:05 → D.PAN 08:15 → D.M3 12:21 → D.OPS 12:51 → D.M3 12:51 → D.OPS 13:45 → D.PAN 13:45 → D.M3 09-05 10:16
PROVIDERS: Anesthesiology; Internal Medicine Nephrology; ADMIT Orthopaedic Surgery; ATTEND Orthopaedic Surgery
PROC: 0PSF04Z Reposition Right Humeral Shaft with Internal Fixation Device, Open Approach (ICD-10-PCS; principal; 2019-09-03 08:15)
DX: S42.301A Unspecified fracture of shaft of humerus, right arm, initial encounter for closed fracture (principal); D62 Acute posthemorrhagic anemia; E87.1 Hypo-osmolality and hyponatremia; X58.XXXA Exposure to other specified factors, initial encounter; E11.9 Type 2 diabetes mellitus without complications; I10 Essential (primary) hypertension; Z87.891 Personal history of nicotine dependence; F41.9 Anxiety disorder, unspecified

== ENCOUNTER 2019-09-06 14:17 | Inpatient (IN) | payer OTHER, MEDICAID ==
[~2019-09-06] VITALS: Ht 162.6 cm; Wt 88.0 kg
[~2019-09-06 14:17] MED LIST changes: +KEFLEX500 MG PO; +OXYCODONE HCL10 MG PO
[2019-09-06 15:52] LABS: BASOPHILS 0.2 % (0-2); EOSINOPHILS 0.7 % (0-7); HEMOGLOBIN 11.4 g/dL (12-16); IMMATURE GRANULOCYTES 0.4 % (0-5); LYMPHOCYTES 15.7 % (15-50); MCH 29.6 pg (26.0-34.0); MCHC 31.7 g/dL (31.0-37.0); MCV 93.5 fL (80.0-100.0); MEAN PLATELET VOLUME 9.3 fL (7.4-10.4); PLATELET COUNT 286 10x3/uL (130-400); RBC 3.85 10x6/uL (4.00-5.40); RDW 15.9 % (11.5-14.5); WBC 8.6 10x3/uL (4.8-10.8)
[2019-09-06 15:57] LABS: CALCIUM 9.3 mg/dL (8.5-10.1); CARBON DIOXIDE 28.4 mmol/L (21.0-32.0); CHLORIDE - SERUM 100 mmol/L (98-107); POTASSIUM - SERUM 4.2 mmol/L (3.5-5.1); SODIUM 135 mmol/L (136-145); UREA NITROGEN 9 mg/dL (7-18); eGFR NON AFRICAN AMERICAN 76 mL/min (90-120)
[2019-09-06 15:59] LABS: CALC OSMOLALITY 276 mosm/kg (275-300); CREATININE - SERUM 0.8 mg/dL (0.6-1.3); GLUCOSE 243 mg/dL (74-106)
[2019-09-06 16:03] LABS: ALBUMIN 3.1 g/dL (3.4-5.0); ALKALINE PHOSPHATASE 61 U/L (30-120); ALT (SGPT) 24 U/L (10-68); BILIRUBIN - TOTAL 0.32 mg/dL (0.2-1.3); PROTEIN - SERUM 7.3 g/dL (6.4-8.2)
[2019-09-06 20:31] VITALS: BP 120/78
[2019-09-06 21:49] VITALS: BP 136/45
--- NOTE | 2019-09-06 23:33 | NUR ---
RECEIEVED FROM ER.VIA WHEELCHAIR.ALERT,ORIENTED. RIGHT ARM WITH SLIN INTACT. DRESSING INTACT WITHOUT DRAINAGE NOTED. IV TO RIGHT HAND INTACT. CL IN REACH
[2019-09-07] VITALS (7 sets, daily range): BP systolic 118–159; BP diastolic 54–81; Ht 162.6 cm; Wt 88.0 kg
--- NOTE | 2019-09-07 08:20 | NUR ---
PT IS RESTING IN BED WITH EYES OPEN. RESPIRATIONS ARE EVEN AND UNLABORED. PT IS AAO X 4. RIGHT ARM IN SLING. DRESSING TO RIGHT UPPER ARM NOTED AND IS CDI. SLIGHT SWELLING NOTED TO RIGHT UPPER FOREARM WITH SLIGHT REDNESS. PT DENIES PRESENCE OF NUMBNESS/TINGLING TO BUE AND BLE EXTREMITIES. BILATERAL RADIAL PULSES ARE PALP AND CAP REFILL IS < 3 SECONDS. SLING TO RIGHT ARM IS ON AND APPROPRIATE. PT REPORTS SLIGHT PAIN TO RUE BUT DENIES NEEDS AT THIS TIME. PT REFUSES SCDS. BED IS IN THE LOWEST POSITION. CALL LIGHT AND BEDSIDE TABLE ARE WITIHN REACH. SIDE RAILS X 2. PT DENIES FURTHER NEEDS. WILL CONT TO MONITOR.
--- NOTE | 2019-09-07 11:21 | NUR ---
INCENTIVE SPIROMETER AT BEDSIDE. PT EDUCATED ON IMPORTANCE OF USE OF INCENTIVE SPIROMETER AND APPROPRIATE USE. PT VERBALIZES UNDERSTANDING AND DENIES FURTHER QUESTIONS. BED IS IN THE LOWEST POSITION. CALL LIGHT AND BEDSIDE TABLE ARE WITHIN REACH. SIDE RAILSX 2. PT DENIES FURTHER NEEDS. WILL CONT TO MONITOR.
--- NOTE | 2019-09-07 11:25 | NUR ---
UPON ENTERING PT ROOM TO HANG IV ANTIBIOTIC PT SEEN WITH PILL BOTTLE IN HAND AND PURSE IN BED ON LAP. PT QUESTIONED ABOUT MEDICATION AND STATES "OH IT IS JUST AN IBUPROFEN THAT I WAS GOING TO TAKE BECAUSE MY SHOULDER HURTS". PT INFORMED OF HOSPITAL POLICY ON HOME MEDICATIONS AND ADVISED NOT TO TAKE HOME MEDICATION. PT PUTS PILL BACK INTO PURSE AND STATES "OK JUST PUT IT OVER THERE AND ILL SEND IT HOME. IM NOT GOING TO TAKE IT THEN". PT REFUSES NURSE TO TAKE MEDICATION AND STATES "WHEN THEY GET HERE ILL SEND IT HOME". PT INFORMED OF RISKS ASSOCIATED WITH OVER MEDICATION AND INTERACTIONS WITH DIFFERENT MEDICATIONS AND ADMINISTRATION OF MEDICATION. SEE EMAR. PT VERBALIZES UNDERSTANDING AND STATES "I WONT TAKE IT AND I WONT TRY TO DO IT AGAIN. IM GOING TO SEND IT HOME I PROMISE". PT DENIES FURTHER NEEDS. BED IS IN THE LOWEST POSITION. CALL LIGHT AND BEDSIDE TABLE ARE WITHIN REACH. SIDE RAILS X 2. WILL CONT TO MONITOR.
--- NOTE | 2019-09-07 14:00 | NUR ---
PT WITH C/O OF SHARP PAIN 04/04 TO RUE STATING "IT JUST HURTS SO BAD". WILL ADDRESS. SEE EMAR. PT STATES THAT SWELLING HAS WORSENED AND "IT JUST FEELS SO TIGHT". RADIAL PULSE IS PALP TO RUE. SWELLING NOTED TO RIGHT UPPER DOES NOT APPEAR WORSENED FROM INTIAL ASSESSMENT THIS AM. WILL CLOSELY MONIT.
[2019-09-08] VITALS: BP 131/48
[2019-09-08 04:00] VITALS: BP 128/48
[2019-09-08 06:07] LABS: BASOPHILS 0.3 % (0-2); EOSINOPHILS 2.9 % (0-7); HEMATOCRIT 30.3 % (36.0-48.0); HEMOGLOBIN 9.4 g/dL (12-16); IMMATURE GRANULOCYTES 0.3 % (0-5); MCH 29.3 pg (26.0-34.0); MCV 94.4 fL (80.0-100.0); MEAN PLATELET VOLUME 9.2 fL (7.4-10.4); MONOCYTES 7.2 % (2-11); NEUTROPHILS 58.3 % (40-80); PLATELET COUNT 254 10x3/uL (130-400); RBC 3.21 10x6/uL (4.00-5.40); RDW 15.9 % (11.5-14.5)
[2019-09-08 06:21] LABS: CALC OSMOLALITY 275 mosm/kg (275-300); CALCIUM 8.5 mg/dL (8.5-10.1); CARBON DIOXIDE 28.4 mmol/L (21.0-32.0); CHLORIDE - SERUM 102 mmol/L (98-107); CREATININE - SERUM 0.7 mg/dL (0.6-1.3); POTASSIUM - SERUM 4.1 mmol/L (3.5-5.1); SODIUM 138 mmol/L (136-145); UREA NITROGEN 10 mg/dL (7-18); VANCOMYCIN - TROUGH 11.2 ug/mL (10.0-20.0); eGFR NON AFRICAN AMERICAN 88 mL/min (90-120)
[2019-09-08 06:22] LABS: GLUCOSE 124 mg/dL (74-106)
[2019-09-08 06:29] LABS: WBC 6.1 10x3/uL (4.8-10.8)
[2019-09-08 07:39] VITALS: BP 136/52
--- NOTE | 2019-09-08 07:45 | NUR ---
PATIENT ON PHONE. CL IN REACH. ASSESSMENT COMPLETED. STATES PAIN IS 9 OUT OF 10 ON THE PAIN SCALE. [facility]
--- NOTE | 2019-09-08 11:45 | NUR ---
PATIENT CALM NOW. STILL RATES PAIN AT 20, 15, 18. GIVEN A STRESS BALL TO MAKE IT EASIER TO WORK HER HAND AND SHOULDER. ASKED HOW OFTEN. TOLD HER DR JAQUEZ STATED OFTEN POSSIBLE. PATIENT STATED SHE MIGHT NEED HELP CUTTING UP HER DINNER. I RESPONDED WE COULD HELP WITH THAT. CL IN REACH. TM
[2019-09-08 11:47] VITALS: BP 121/52
--- NOTE | 2019-09-08 13:56 | NUR ---
PATIENT ASLEEP AT THIS TIME. WALKED BY ROOM SEEN PATIENT RIGHT ARM WAS NOT PLACED PER DR JAQUEZ INSTRUCTIONS. PLACED ARM UP ON BEDSIDE TABLE TO HELP REDUCE SWELLING. CL IN REACH. PATIENT RETURNED TO SLEEP. TM
[2019-09-08 15:19] VITALS: BP 151/50
--- NOTE | 2019-09-08 19:00 | NUR ---
BEDSIDE REPORT RECEIVED AND CARE OF PT ASSUMED. PT LYING IN LOW HICKS'S POSITION WITH RIGHT ARM ELEVATED ON PILLOWS. IV TO RIGHT HAND PATENT WITH 1/2 NS INFUSING AT 50 ML/HR. WILL MONITOR FOR NEEDS.
[2019-09-08 20:00] VITALS: BP 143/54
--- NOTE | 2019-09-08 20:45 | NUR ---
GAVE ICE CREAM AND BILLY CRACKERS FOR HS SNACK.
--- NOTE | 2019-09-08 20:59 | NUR ---
HS MEDICATIONS GIVEN TO INCLUDE DILAUDID 1 MG IVP PER REQUEST FOR PAIN.
[2019-09-09 04:00] VITALS: BP 141/60
[2019-09-09 05:09] LABS: BASOPHILS 0.4 % (0-2); EOSINOPHILS 2.5 % (0-7); HEMOGLOBIN 9.8 g/dL (12-16); IMMATURE GRANULOCYTES 0.1 % (0-5); LYMPHOCYTES 25.2 % (15-50); MCH 29.3 pg (26.0-34.0); MCHC 31.6 g/dL (31.0-37.0); MCV 92.5 fL (80.0-100.0); MEAN PLATELET VOLUME 9.1 fL (7.4-10.4); MONOCYTES 7.8 % (2-11); RBC 3.35 10x6/uL (4.00-5.40); WBC 7.1 10x3/uL (4.8-10.8)
[2019-09-09 05:19] LABS: PLATELET COUNT 326 10x3/uL (130-400)
[2019-09-09 05:39] LABS: CALC OSMOLALITY 281 mosm/kg (275-300); CALCIUM 9.1 mg/dL (8.5-10.1); CARBON DIOXIDE 29.1 mmol/L (21.0-32.0); CHLORIDE - SERUM 104 mmol/L (98-107); CREATININE - SERUM 0.7 mg/dL (0.6-1.3); GLUCOSE 130 mg/dL (74-106); POTASSIUM - SERUM 3.5 mmol/L (3.5-5.1); SODIUM 141 mmol/L (136-145); UREA NITROGEN 11 mg/dL (7-18); eGFR NON AFRICAN AMERICAN 88 mL/min (90-120)
--- NOTE | 2019-09-09 05:47 | NUR ---
CHANGED ALL LINENS AND GOWN. OFFERED BATH AND PT DECLINED SHE WANTS TO USE BATH WIPES LATER TO DO HER OWN SPONGE BATH.
--- NOTE | 2019-09-09 08:20 | NUR ---
HER RIGHT ARM IS SWOLLEN, HAND, FINGERS. DR. JAQUEZ TOOK THE DESEAN WRAP OFF THIS MORNING. SHE CAN MOVE ALL HER FINGERS ON THE RIGHT HAND. SHE HAS IT ELEVATED ON A PILLOW WITH ICE TO HER SHOULDER. PRN PAIN MEDS GIVEN.
[2019-09-09 08:58] VITALS: BP 130/47
[2019-09-09 13:49] VITALS: BP 144/56
[2019-09-09 16:39] VITALS: BP 131/65
[2019-09-09 20:00] VITALS: BP 140/68
[2019-09-10] VITALS: BP 140/49
[2019-09-10 04:00] VITALS: BP 140/68
[2019-09-10 06:03] LABS: BASOPHILS 0.5 % (0-2); EOSINOPHILS 1.9 % (0-7); HEMOGLOBIN 10.9 g/dL (12-16); IMMATURE GRANULOCYTES 0.3 % (0-5); LYMPHOCYTES 35.3 % (15-50); MCH 29.4 pg (26.0-34.0); MCHC 31.1 g/dL (31.0-37.0); MCV 94.3 fL (80.0-100.0); MEAN PLATELET VOLUME 9.1 fL (7.4-10.4); MONOCYTES 8.4 % (2-11); NEUTROPHILS 53.6 % (40-80); PLATELET COUNT 325 10x3/uL (130-400); RBC 3.71 10x6/uL (4.00-5.40); RDW 15.8 % (11.5-14.5); WBC 5.8 10x3/uL (4.8-10.8)
[2019-09-10] MEDS ORDERED: VISTARIL50 MG PO (07:10)
[2019-09-10] MEDS ORDERED: ZOFRAN ODT4 MG/UDTAB PO (07:10)
[2019-09-10] MEDS ORDERED: HYDROCODON-ACE1 EA10 PO (07:11)
[2019-09-10] MEDS ORDERED: SMZ-TMP DS TABL1 TAB PO (07:11)
--- NOTE | 2019-09-10 07:44 | NUR ---
PT SITTING UP IN BED WATCHING TV. PT REPORTS RIGHT SHOULDER PAIN 10/10 AT THIS TIME. PAIN MEDICATIONS ADMINISTERED PER MD ORDERS. IV TO RIGHT HAND WITH 1/2 NS @ 50ML/HR INFUSING VIA PUMP. SITE WITHOUT REDNESS OR EDEMA. DRESSING C/D/I TO RIGHT SHOULDER. DENIES FURTHER NEEDS AT THIS TIME. CL WITHIN REACH. ENCOURAGED TO CALL WITH NEEDS. CONTINUE POC
[2019-09-10 08:10] VITALS: BP 141/52
--- NOTE | 2019-09-10 09:26 | MORECARE ---
CASE MANAGEMENT DISCHARGE SUMMARY PATIENT: THAI MOREIRA UNIT: [id number] ADM DATE: 09/06/19 AGE: 69 : 52 SEX: F ROOM/BED: D.2206 AUTHOR: CLAIRE JACQUES PHYSICIAN: REFERRING PHYSICIAN: ULISES JAQUEZ DO DATE OF SERVICE: 09/10/19 Discharge Plan Patient Name: THAI MOREIRA Facility: [facility]:[place] : 1950 Planned Disposition: Home with Home Health Anticipated Discharge Date: Discharge Date: Expected LOS: Initial Reviewer: [email or web address] Initial Review Date: 09/06/2019 Generated: 09/10/19 10:25 am Patient Name: THAI MOREIRA Page [id number] at 0926 All edits/amendments must be made on the electronic document DICTATION DATE: 09/10/19924 DOUBLER OPERATOR: BRITTANY 09/10/19924 RPT#: [id number] DC DATE: STATUS: ADM IN [facility] [address] [place] [address] END OF REPORT
--- NOTE | 2019-09-10 09:33 | MORECARE ---
CASE MANAGEMENT DISCHARGE SUMMARY PATIENT: THAI MOREIRA UNIT: [id number] ADM DATE: 09/06/19 AGE: 69 : 54 SEX: F ROOM/BED: D.2202 AUTHOR: CLAIRE JACQUES PHYSICIAN: REFERRING PHYSICIAN: ULISES JAQUEZ DO DATE OF SERVICE: 09/10/19 Discharge Plan Patient Name: THAI MOREIRA Facility: [facility]:[place] : 1950 Planned Disposition: Home with Home Health Anticipated Discharge Date: Discharge Date: Expected LOS: Initial Reviewer: [email or web address] Initial Review Date: 09/06/2019 Generated: 09/10/19 10:32 am Comments DCP- Discharge Planning Updated by [email or web address]: Celsa Noonan on 09/10/19 8:[address] Patient Name: THAI MOREIRA Admission Status: ER Accout number: [id number] Admission Date: 09-06-2019 : 1950 Admission Diagnosis: Attending: ULIESS JAQUEZ Current LOS: 4 Anticipated DC Date: Planned Disposition: Home with Home Health Primary Insurance: [facility] Discharge Planning Comments: CM met with patient to complete initial dc planning assessment. CM educated patient on the CM role and verbal consent given by patient to complete assessment. Patient lives at home with where she stated that she is independent with her care. At discharge patient plans to return home and feels this is a safe discharge. CM discussed availability of home health, rehab services, and medical equipment. She stated that her friend/neighbor will be the one to take her home today. She does not use any DME but said she has [facility]. I am unsure if she is current or will be a new admit. I will send referral to them for HH. IMM served and given, ANDREAS signed for [facility]. Patient denied known discharge needs at this time. CM will continue to follow and will assist as needed with dc plans/needs. White Sugar Supervisor: Celsa Noonan DCPIA - Discharge Planning Initial Assessment Updated by [email or web address]: Celsa Noonan on 09/10/19 9:26 am * Is the patient Alert and Oriented? Yes * How many steps to enter\exit or inside your home? * PCP DR CESAR * Pharmacy [facility] IN [place] * Preadmission Environment Home Alone * ADLs Independent * Equipment None * List name and contact numbers for known caregivers / representatives who currently or will assist patient after discharge: FRANCISCO OWEN (DAUGHTER) [phone] * Verbal permission to speak to the caregivers and representatives has been obtained from the patient. N/A * Community resources currently utilized Home Health * Please name any agencies selected above. [facility] IF SHE IS CURRENT * Additional services required to return to the preadmission environment? Yes * Can the patient safely return to the preadmission environment? Yes * Has this patient been hospitalized within the prior 30 days at any hospital? No Coverage Notice Reviewer: [id number] Dell Noonan Notice Issued Date-Time: 09/10/2019 8:50 Notice Type: IM Discharge Notice Notice Delivered To: Patient Relationship to Patient: Computer Technical Support Specialist Name: Delivery Method: HAND - Hand Delivered Susan Days: Prior Verbal Notification: Recipient Understood Notice: Yes Recipient Signature: Yes Med Rec Note Co-signed by Attending: Coverage Notice Comment: Last DP export: 09/10/19 8:26 a Patient Name: THAI MOREIRA Page [id number] at 0933 All edits/amendments must be made on the electronic document DICTATION DATE: 09/10/19931 AIRCRAFT POWERPLANT REPAIRER: BRITTANY 09/10/19931 RPT#: [id number] DC DATE: STATUS: ADM IN [facility] [address] [place] [address] END OF REPORT
--- NOTE | 2019-09-10 09:57 | MORECARE ---
CASE MANAGEMENT DISCHARGE SUMMARY PATIENT: THAI MOREIRA UNIT: [id number] ADM DATE: 09/06/19 AGE: 69 : 54 SEX: F ROOM/BED: D.2209 AUTHOR: CLAIRE JACQUES PHYSICIAN: REFERRING PHYSICIAN: ULISES JAQUEZ DO DATE OF SERVICE: 09/10/19 Discharge Plan Patient Name: THAI MOREIRA Facility: [facility]:[place] : 1950 Planned Disposition: Home with Home Health Anticipated Discharge Date: Discharge Date: Expected LOS: Initial Reviewer: [email or web address] Initial Review Date: 09/06/2019 Generated: 09/10/19 10:56 am Comments DCP- Discharge Planning Updated by [email or web address]: Celsa Noonan on 09/10/19 8:[address] Patient Name: THAI MOREIRA Admission Status: ER Accout number: [id number] Admission Date: 09-06-2019 : 1950 Admission Diagnosis: Attending: ULISES JAQUEZ Current LOS: 4 Anticipated DC Date: Planned Disposition: Home with Home Health Primary Insurance: [employer] Discharge Planning Comments: CM met with patient to complete initial dc planning assessment. CM educated patient on the CM role and verbal consent given by patient to complete assessment. Patient lives at home with where she stated that she is independent with her care. At discharge patient plans to return home and feels this is a safe discharge. CM discussed availability of home health, rehab services, and medical equipment. She stated that her friend/neighbor will be the one to take her home today. She does not use any DME but said she has [facility]. I am unsure if she is current or will be a new admit. I will send referral to them for HH. IMM served and given, ARI signed for [facility]. Patient denied known discharge needs at this time. CM will continue to follow and will assist as needed with dc plans/needs. Hand Coke Drawer: Celsa Noonan DCPIA - Discharge Planning Initial Assessment Updated by [email or web address]: Celsa Noonan on 09/10/19 9:26 am * Is the patient Alert and Oriented? Yes * How many steps to enter\exit or inside your home? * PCP DR CESAR * Pharmacy [facility] IN [place] * Preadmission Environment Home Alone * ADLs Independent * Equipment None * List name and contact numbers for known caregivers / representatives who currently or will assist patient after discharge: FRANCISCO OEWN (DAUGHTER) [phone] * Verbal permission to speak to the caregivers and representatives has been obtained from the patient. N/A * Community resources currently utilized Home Health * Please name any agencies selected above. [facility] IF SHE IS CURRENT * Additional services required to return to the preadmission environment? Yes * Can the patient safely return to the preadmission environment? Yes * Has this patient been hospitalized within the prior 30 days at any hospital? No External Providers External Provider: [facility] Next Contact Date: Service Request Date: Service Type: Resolution: Reviewer: Comments: Coverage Notice Reviewer: [id number] Dell Noonan Notice Issued Date-Time: 09/10/2019 8:50 Notice Type: IM Discharge Notice Notice Delivered To: Patient Relationship to Patient: Airplane Charter Clerk Name: Delivery Method: HAND - Hand Delivered Susan Days: Prior Verbal Notification: Recipient Understood Notice: Yes Recipient Signature: Yes Med Rec Note Co-signed by Attending: Coverage Notice Comment: Reviewer: [email or web address] Dell Noonan Notice Issued Date-Time: 09/10/2019 8:50 Notice Type: Patient Choice Letter Notice Delivered To: Patient Relationship to Patient: Airplane Charter Clerk Name: Delivery Method: HAND - Hand Delivered Susan Days: Prior Verbal Notification: Recipient Understood Notice: Yes Recipient Signature: Yes Med Rec Note Co-signed by Attending: Coverage Notice Comment: ari with [place] Last DP export: 09/10/19 8:33 a Patient Name: THAI MOREIRA Page [id number] at 0957 All edits/amendments must be made on the electronic document DICTATION DATE: 09/10/19955 PRINTER SLOTTER OPERATOR: BRITTANY 09/10/19955 RPT#: [id number] DC DATE: STATUS: ADM IN [facility] [address] [place] [address] END OF REPORT
--- NOTE | 2019-09-10 10:30 | NUR ---
PT DISCHARGE INFORMATION PROVIDED FOR DISCHARGE. DISCUSSED S/S; OF INFECTION TO RIGHT SHOULDER. INSTRUCTED PT TO WEAR SLING AND KEEP RT UPPER EXTREMITY ELEVATED. PT VOICES UNDERSTANDING. PROVIDED WITH PRESCRIPTIONS. EDUCATION PROVIDED REGARDING PRESCRIPTIONS. IV DISCONTINUED TO RIGHT HAND, CATH INTACT. PT TAKEN OUT VIA W/C TO PRIVATE VEHICLE WITH ALL PERSONAL BELONGINGS.
--- NOTE | 2019-09-10 16:54 | MORECARE ---
CASE MANAGEMENT DISCHARGE SUMMARY PATIENT: THAI MOREIRA UNIT: [id number] ADM DATE: 09/06/19 AGE: 69 : 54 SEX: F ROOM/BED: D.2200 AUTHOR: CLAIRE JACQUES PHYSICIAN: REFERRING PHYSICIAN: ULISES JAQUEZ DO DATE OF SERVICE: 09/10/19 Discharge Plan Patient Name: THAI MOREIRA Facility: [facility]:[place] : 1950 Planned Disposition: Home with Home Health Anticipated Discharge Date: Discharge Date: 09/10/2019 Expected LOS: 0 Initial Reviewer: [email or web address] Initial Review Date: 09/06/2019 Generated: 09/10/19 5:53 pm Comments DCP- Discharge Planning Updated by [email or web address]: Celsa Noonan on 09/10/19 8:[address] Patient Name: THAI MOREIRA Admission Status: ER Accout number: [id number] Admission Date: 09-06-2019 : 1950 Admission Diagnosis: Attending: ULISES JAQUEZ Current LOS: 4 Anticipated DC Date: Planned Disposition: Home with Home Health Primary Insurance: [facility] Discharge Planning Comments: CM met with patient to complete initial dc planning assessment. CM educated patient on the CM role and verbal consent given by patient to complete assessment. Patient lives at home with where she stated that she is independent with her care. At discharge patient plans to return home and feels this is a safe discharge. CM discussed availability of home health, rehab services, and medical equipment. She stated that her friend/neighbor will be the one to take her home today. She does not use any DME but said she has [facility]. I am unsure if she is current or will be a new admit. I will send referral to them for HH. IMM served and given, ARI signed for [facility]. Patient denied known discharge needs at this time. CM will continue to follow and will assist as needed with dc plans/needs. Chairlift Operator: Celsa Noonan DCPIA - Discharge Planning Initial Assessment Updated by [email or web address]: Celsa Noonan on 09/10/19 9:26 am * Is the patient Alert and Oriented? Yes * How many steps to enter\exit or inside your home? * PCP DR CESAR * Pharmacy [facility] IN [place] * Preadmission Environment Home Alone * ADLs Independent * Equipment None * List name and contact numbers for known caregivers / representatives who currently or will assist patient after discharge: FRANCISCO OWEN (DAUGHTER) [phone] * Verbal permission to speak to the caregivers and representatives has been obtained from the patient. N/A * Community resources currently utilized Home Health * Please name any agencies selected above. [facility] IF SHE IS CURRENT * Additional services required to return to the preadmission environment? Yes * Can the patient safely return to the preadmission environment? Yes * Has this patient been hospitalized within the prior 30 days at any hospital? No Coverage Notice Reviewer: [email or web address] Noonan Notice Issued Date-Time: 09/10/2019 8:50 Notice Type: IM Discharge Notice Notice Delivered To: Patient Relationship to Patient: Physician Liaison Name: Delivery Method: HAND - Hand Delivered Susan Days: Prior Verbal Notification: Recipient Understood Notice: Yes Recipient Signature: Yes Med Rec Note Co-signed by Attending: Coverage Notice Comment: Reviewer: [email or web address] Noonan Notice Issued Date-Time: 09/10/2019 8:50 Notice Type: Patient Choice Letter Notice Delivered To: Patient Relationship to Patient: Physician Liaison Name: Delivery Method: HAND - Hand Delivered Susan Days: Prior Verbal Notification: Recipient Understood Notice: Yes Recipient Signature: Yes Med Rec Note Co-signed by Attending: Coverage Notice Comment: ari with [place] Last DP export: 09/10/19 8:57 a Patient Name: THAI MOREIRA Page [id number] at 1654 All edits/amendments must be made on the electronic document DICTATION DATE: 09/10/191652 POWER PLANT MANAGER: BRITTANY 09/10/191652 RPT#: [id number] DC DATE:09/10/19 STATUS: DIS IN [facility] [address] [place] [address] END OF REPORT
== END 2019-09-10 11:14 | disposition home health service (06) | DRG 948 ==
LOC: D.ER 14:17 → D.MS 18:47
PROVIDERS: Family Medicine; ADMIT Orthopaedic Surgery; ATTEND Orthopaedic Surgery
DX: G89.18 Other acute postprocedural pain (principal); S42.391A Other fracture of shaft of right humerus, initial encounter for closed fracture; F41.9 Anxiety disorder, unspecified; E11.9 Type 2 diabetes mellitus without complications; I10 Essential (primary) hypertension; M19.90 Unspecified osteoarthritis, unspecified site; M81.0 Age-related osteoporosis without current pathological fracture

== ENCOUNTER 2019-12-25 08:00 | Outpatient (CLI) | payer MEDICARE, MEDICAID ==
[2019-09-07 12:12] VITALS: BMI 33.3
[~2019-12-25 08:00] MED LIST changes: +SMZ-TMP DS TABL1 TAB PO
[2019-12-25] MEDS ORDERED: ALBUTEROL SULF8.5 GM INH (13:37)
[2019-12-25 14:09] LABS: BASOPHILS 0.4 % (0-2); EOSINOPHILS 1.4 % (0-7); HEMOGLOBIN 13.5 g/dL (12-16); IMMATURE GRANULOCYTES 0.3 % (0-5); LYMPHOCYTES 29.4 % (15-50); MCH 29.8 pg (26.0-34.0); MCHC 32.1 g/dL (31.0-37.0); MCV 92.7 fL (80.0-100.0); MEAN PLATELET VOLUME 9.3 fL (7.4-10.4); MONOCYTES 4.1 % (2-11); NEUTROPHILS 64.4 % (40-80); PLATELET COUNT 270 10x3/uL (130-400); RBC 4.53 10x6/uL (4.00-5.40); RDW 14.3 % (11.5-14.5); WBC 7.6 10x3/uL (4.8-10.8)
[2019-12-25 14:25] LABS: CALC OSMOLALITY 276 mosm/kg (275-300); CALCIUM 9.3 mg/dL (8.5-10.1); CARBON DIOXIDE 26.6 mmol/L (21.0-32.0); CHLORIDE - SERUM 100 mmol/L (98-107); CREATININE - SERUM 0.8 mg/dL (0.6-1.3); POTASSIUM - SERUM 4.3 mmol/L (3.5-5.1); SODIUM 135 mmol/L (136-145); UREA NITROGEN 20 mg/dL (7-18); eGFR NON AFRICAN AMERICAN 76 mL/min (90-120)
[2019-12-25 14:26] LABS: GLUCOSE 178 mg/dL (74-106)
== END 2019-12-25 08:01 | disposition home or self-care (01) ==
LOC: D.OPS 08:00 → D.PAN 12-27 13:00 → D.OPS 12-27 13:00 → EDSTATUS 12-27 13:00 → D.PAN 12-27 13:15 → D.OPS 12-27 13:15 → D.PAN 12-27 14:55
PROVIDERS: ATTEND Orthopaedic Surgery
DX: M67.441 Ganglion, right hand (principal)

== ENCOUNTER 2020-08-19 08:03 | Observation (INO) | payer MEDICARE, MEDICAID ==
[~2020-08-19] VITALS: Ht 162.6 cm; Wt 92.3 kg
[2020-10-07 12:48] LABS: BILIRUBIN NEGATIVE (NEGATIVE); KETONE NEGATIVE (NEGATIVE); NITRITE NEGATIVE (NEGATIVE); UROBILINOGEN NORMAL mg/dL (< 2)
[2020-10-07 13:20] LABS: BASOPHILS 0.6 % (0-2); EOSINOPHILS 3.8 % (0-7); HEMATOCRIT 39.1 % (36.0-48.0); HEMOGLOBIN 12.4 g/dL (12-16); IMMATURE GRANULOCYTES 0.1 % (0-5); LYMPHOCYTES 30.8 % (15-50); MCH 29.2 pg (26.0-34.0); MCHC 31.7 g/dL (31.0-37.0); MEAN PLATELET VOLUME 9.7 fL (7.4-10.4); MONOCYTES 7.2 % (2-11); NEUTROPHILS 57.5 % (40-80); RBC 4.25 10x6/uL (4.00-5.40); RDW 14.5 % (11.5-14.5); WBC 9.7 10x3/uL (4.8-10.8)
[2020-10-07 13:22] LABS: PLATELET COUNT 331 10x3/uL (130-400)
[2020-10-07 13:26] LABS: INR 1.08 (0.85-1.17)
[2020-10-07 13:27] LABS: ANION GAP 10.2 mmol/L (8-16); APTT 29.6 SECONDS (22.8-39.4); CALCIUM 10.3 mg/dL (8.5-10.1); CARBON DIOXIDE 29.5 mmol/L (21.0-32.0); POTASSIUM - SERUM 4.7 mmol/L (3.5-5.1)
[2020-10-07] MEDS ORDERED: TRULICITY0.75 MG/0. (13:51)
[2020-10-13] MEDS ORDERED: CYCLOBENZAPRINE10 MG PO (07:54)
[2020-10-13] MEDS ORDERED: HYDROCODONE-AC1 EAC2 PO (07:55)
[2020-10-13 07:57] VITALS: BP 122/69; BMI 39.5
--- NOTE | 2020-10-13 14:05 | NUR ---
RECEIVED TO ROOM 1213 VIA BED FROM PACU. A/O X 3. NO C/O AT THIS TIME. VSS. DRESSING TO LEFT KNEE IS DRY AND INTACT. DENIES PAIN AT THIS TIME.
[2020-10-13 14:07] VITALS: BP 102/61
[2020-10-13 14:13] VITALS: BP 102/61; Ht 162.6 cm; Wt 92.3 kg
[2020-10-13 15:02] VITALS: BP 110/64
[2020-10-13 16:41] VITALS: BP 122/64
--- NOTE | 2020-10-13 17:06 | NUR ---
REQUESTED AND GIVEN ONE PERCOCET PO FOR C/O LEFT KNEE PAIN LEVEL 7. WILL MONITOR.
--- NOTE | 2020-10-13 19:05 | MORECARE ---
CASE MANAGEMENT DISCHARGE SUMMARY PATIENT: THAI MOREIRA UNIT: [id number] ADM DATE: 10/13/20 AGE: 70 : 52 SEX: F ROOM/BED: [facility] AUTHOR: GEORGIE,DOC PHYSICIAN: REFERRING PHYSICIAN: ULISES JAQUEZ DO DATE OF SERVICE: 10/13/20 Case Management Discharge Planning Summary DCP REVIEW SUMMARY ANTICIPATED D/C DATE: EXPECTED LOS : CASE STATUS: DCP Initiated INITIAL REVIEW: 10/13/2020 INITIAL REVIEWER: Quentin Michelle FINAL DISCHARGE DISPOSITION: : FINAL REVIEWER: FINAL REVIEW DATE: DCP Focus Questions & Answers QUESTION: ANSWER : PATIENT: THAI MOREIRA ENCOUNTER: [id number] MEDICAL RECORD#: [id number] ADMISSION DATE: 10/13/2020 DISCHARGE DATE: ATTENDING MD: ULISES RAMOS : AGE: 70 MARITAL STATUS: D DC PLAN ID: [id number] FACILITY: [facility] PRINTED ON: 10/13/20 19:05 CT All edits/amendments must be made on the electronic document DICTATION DATE: 10/13/201904 CARE TRANSITIONS MANAGER: DM 10/13/201904 RPT#: [id number] DC DATE: STATUS: ADM IN [facility] [address] [place] [address] END OF REPORT
--- NOTE | 2020-10-13 19:16 | MORECARE ---
CASE MANAGEMENT DISCHARGE SUMMARY PATIENT: THAI MOREIRA UNIT: [id number] ADM DATE: 10/13/20 AGE: 70 : 52 SEX: F ROOM/BED: D.1213 AUTHOR: GEORGIE,CLAIRE PHYSICIAN: REFERRING PHYSICIAN: ULISES JAQUEZ DO DATE OF SERVICE: 10/13/20 Case Management Discharge Planning Summary COMMENTS ENTERED DATE: 10/13/20 19:06 CT COMMENT TYPE: Discharge Planning REVIEWER: Quentin [facility]. CM met with patient to complete DC plan and to evaluate needs. Patient lives alone but has family and friend support. Patient stated that her home is safe and has electricity and running water. Patient stated that the home has 2 steps to enter and she manages the steps without difficulty. Patient stated that she has no problems paying for medications and she fills her medications at [facility] in [place]. Patient stated that her primary care physician is Dr. Jones. At discharge, the patient plans to return home and feels this is a safe discharge. CM discussed availability of home health, rehab services, and medical equipment. Patient declined HHS, SNF, IPR, and DME. Patient stated that she would like have outpatient therapy with [facility]. Patient stated that she has a walker and CPM. Clinical Documents faxed to [facility]. ANDREAS signed and placed on chart. Patient voiced no other needs at this time and is satisfied with DC plan. Transportation provider at discharge will be with her daughter, Judy Bender, . HINKLE delivered, explained, signed by the patient, and placed in chart. Signed form also left with the patient. CM will continue to follow and will assist as needed with dc plans/needs. DCP REVIEW SUMMARY ANTICIPATED D/C DATE: EXPECTED LOS : CASE STATUS: DCP Initiated INITIAL REVIEW: 10/13/2020 INITIAL REVIEWER: Quentin Michelle FINAL DISCHARGE DISPOSITION: : FINAL REVIEWER: FINAL REVIEW DATE: DCP Focus Questions & Answers DCP Evaluation QUESTION: ANSWER Patient and/or caregiver agree upon recommended discharge plan? : Yes Family / Caregiver's ability to cope with chronic illness: : a. Adequate (ability to meet patient's medical needs, ensures patient attends medical appts.) Patient's current cognitive status: : *Oriented to person, place, situation, time and present Patient's ability to cope with chronic illness : d. No chronic illness Patient gives permission to discuss discharge plans with: (name, relationship and number) : daughter, Judy Bender, Does the patient have the ability to pay for or attain post discharge needs / services? : Yes Functional screen assessment: : Basic needs can adequately be met by self Family / Caregiver's ability to cope with chronic illness: : a. Adequate (ability to meet patient's medical needs, ensures patient attends medical appts.) Physical Status: : Independent with ADL's Equipment needed for post hospitalization: : None Is there a likelihood that the patient will require additional services to return to the preadmission environment? : Yes Living Arrangements: : Home Alone with Support Patient with capacity for self-care or can be cared for in same environment as prior to hospitalization? : Yes Baseline cognitive status: : *Oriented to person, place, situation, time and present Physical environment modification needed / anticipated for discharge: : No Medication Management: : Patient states can read and understand medication labels Medication Management: : Patient states can afford medications Does Patient have transportation to get home and to follow-up medical appointments when discharged from the hospital? : Yes Would patient like to participate in any Care Coordination programs (if applicable): : Not applicable Does the patient have electricity at home? : Yes Does the patient have running water in their house? : Yes Equipment in use: : Walker - Rolling Other Equipment comments: : CPM Mental health screen: : No mental health history DCP Re-evaluation QUESTION: ANSWER Would patient like to participate in any Care Coordination programs (if applicable): : Not applicable PATIENT: THAI MOREIRA ENCOUNTER: [id number] MEDICAL RECORD#: [id number] ADMISSION DATE: 10/13/2020 DISCHARGE DATE: ATTENDING MD: ULISES RAMOS : AGE: 70 MARITAL STATUS: D DC PLAN ID: [id number] FACILITY: [facility] PRINTED ON: 10/13/20 19:16 CT All edits/amendments must be made on the electronic document DICTATION DATE: 10/13/201915 QUALITY COMPLIANCE CONSULTANT: BRITTANY 10/13/201915 RPT#: [id number] DC DATE: STATUS: ADM IN [facility] [address] [place] [address] END OF REPORT
--- NOTE | 2020-10-13 19:26 | NUR ---
ATE MOST OF SUPPER. NO CHANGES NOTED. DENIES NEEDS.
[2020-10-13 20:00] VITALS: BP 120/76
--- NOTE | 2020-10-13 20:00 | NUR ---
ALERT RESTING IN BED CPM IN USE, DENIES NEEDS AT THIS TIME, SEE SHIFT ASSESSMENT, CALL LIGHT IN REACH
[2020-10-14] VITALS: BP 94/62
[2020-10-14 04:30] VITALS: BP 103/65
--- NOTE | 2020-10-14 06:50 | OP ---
PATIENT NAME: THAI DYSON MEDICAL RECORD: [id number] :54 LOCATION:D. D.1213 ADMISSION DATE:10/13/20 SURGEON: ONEAL JAQUEZ, DATE OF OPERATION: 10/13/2020 PROCEDURE PERFORMED: Left total knee arthroplasty. PREOPERATIVE DIAGNOSIS: Left knee osteoarthritis. POSTOPERATIVE DIAGNOSIS: Left knee osteoarthritis. INDICATIONS: Ms. Dyson is a 70-year-old female well known to me with left knee valgus deformity with osteoarthritis. She had had a bursectomy done several times, it had been over a year since that had been done, the skin had healed up nicely. She also had this osteoarthritis. She is tired dealing with the pain and instability and want something done surgically. I informed her of the risks of this including infection, bleeding, damage to nerves and vessels, need for further surgery, continued pain, blood clots, failure of implants, metal allergy, loss of motion of the knee, continued pain, blood clots and even and she signed the consent. SURGEON: Oneal Jaquez D.O. DESCRIPTION OF SURGERY: The patient was blocked by anesthesia in preoperative area and taken to the operative suite, laid in supine position, given general anesthetic and LMA was placed. She was given 2 grams of Ancef, 80 mg gentamicin and a gram of TXA. The left lower extremity was then prepped and draped in sterile fashion. A timeout was performed. Everyone was in agreement with the correct side, site, patient, and procedure. We then began by marking out an anterior incision and then covered in Ioban. Once I covered with Ioban used a #10 blade scalpel to go through the skin. Made careful dissection down to the capsule itself and used a fresh 10 blade did a medial parapatellar approach. I then everted the patella, removed part of the fat pad and milled down the patella and then drilled it for a 29, 3 PEG patella. We then flexed the knee up, removed the ACL and drilled into the intramedullary canal, put the intramedullary guide in for the distal femur cut pinned it into place and cut the distal femur off the guide. I then exposed the proximal tibia using extramedullary guide and cut the proximal tibia, removed that and then brought the knee into extension, removed the menisci medial and lateral and coagulated bleeding with an Aquamantys. The 10 extension block and it fit very well. I removed the pins from the tibia, flexed the knee up and sized the femur to be an 8. We then put the 8 cutting block on and using the bouchra wing to ensure there was no notching. I then cut the femur through the 4-in-1 cutting block. I removed the excess bone. After removing guide exposed the tibia, sized it to be an E, pinned it into place and put on the femoral trial, put a 10 poly in between went up to 11 and 11 fit very well. Good stability varus valgus stress in flexion, extension and mid flexion. I then drilled lug holes in the femur, removed that and reamed and punched the tibia and put extra holes in the tibia for cement. We then irrigated, removed the tibial tray trial. Prior to doing the extra holes I then irrigated and put in the cement that had been mixed on the tibia and on the implant impacted in place and with excess cement impacted on the femur. I then put the trial 11 poly in between and brought the knee into extension, removed any other cement that remained. I then exposed the patella, irrigated it out and put cement in the patellar holes and on the patellar implant squeezed into place with excess cement. I then put in the 10% povidone OPERATIVE REPORT [id number] LILLIE,THAI GREEN iodine and 500 mL of saline solution and let it sit for 3 minutes and irrigated out with overly normal saline. I then injected with a joint cocktail around the periosteum of the femur and in the quads and supported on the tibia. By that time, the cement had dried, I trialed 11. It fit very well and then put in the 11 poly MC bearing E poly and squeezed into place. Again, good stability checked to varus valgus stress in flexion, mid flexion and extension and then put in Slim, vancomycin and tobramycin powder, closed the capsule with #1 Vicryl in [id number] fashion and Adán Duran, certified surgical first student closed the capsule with Stratafix #1 running it over that closure and then closed the skin with 2-0 Vicryl in inverted interrupted fashion and placed a ZipLine. Adaptic, 4 x 4s, ABD, Webril, Ronald wrap and PERLA hose stocking applied to the knee. She was awakened and taken to recovery in stable condition. BLOOD LOSS: Approximately 300 mL. COMPLICATIONS: None. TRANSINT:[id number] Voice Confirmation ID: [id number] DOCUMENT ID: [id number] ONEAL JAQUEZ DO at 0650 CC: [id number] DICTATION DATE: 10/13/20 140 BACK UP WORKER: 10/13/20 2324 ADM IN [facility] [id number] [place] [address]
[2020-10-14 07:23] LABS: BASOPHILS 0.2 % (0-2); EOSINOPHILS 0.1 % (0-7); HEMATOCRIT 31.2 % (36.0-48.0); HEMOGLOBIN 9.7 g/dL (12-16); IMMATURE GRANULOCYTES 0.2 % (0-5); LYMPHOCYTE ABS# 1.42 10x3/uL (1.18-3.74); LYMPHOCYTES 15.2 % (15-50); MCH 28.9 pg (26.0-34.0); MCHC 31.1 g/dL (31.0-37.0); MCV 92.9 fL (80.0-100.0); MEAN PLATELET VOLUME 9.8 fL (7.4-10.4); MONOCYTES 10.8 % (2-11); NEUTROPHIL ABS# 6.89 10x3/uL (1.56-6.13); NEUTROPHILS 73.5 % (40-80); PLATELET COUNT 271 10x3/uL (130-400); RBC 3.36 10x6/uL (4.00-5.40); RDW 14.8 % (11.5-14.5); WBC 9.4 10x3/uL (4.8-10.8)
--- NOTE | 2020-10-14 07:30 | NUR ---
PT SITTING UP IN BED. RESP EVEN AND UNLABORED. PT REPORTS PAIN 9/10 AT THIS TIME. PAIN MEDICATION TO BE ADMINISTERED. IV TO LEFT HAND WITH 1/2 NS @ 50ML/HR INFUSING VIA PUMP. SITE WITHOUT REDNESS OR EDEMA. CPM TO LEFT LOWER EXTREMITY IN PLACE. DRESSING TO EXTREMITY C/D/I. EXTREMITY WARM TO TOUCH. PULSES PALPABLE. PT DENIES FURTHER NEEDS AT THIS TIME. CL WITHIN REACH. ENCOURAGED TO CALL WITH NEEDS. CONTINUE POC
[2020-10-14 07:44] LABS: ALBUMIN 3.3 g/dL (3.4-5.0); BILIRUBIN - TOTAL 0.31 mg/dL (0.2-1.3); CALCIUM 8.2 mg/dL (8.5-10.1); CARBON DIOXIDE 21.2 mmol/L (21.0-32.0); POTASSIUM - SERUM 5.2 mmol/L (3.5-5.1); PROTEIN - SERUM 6.4 g/dL (6.4-8.2)
--- NOTE | 2020-10-14 08:05 | NUR ---
CPM REMOVED FROM LEFT LOWER EXTREMITY AT THIS TIME.
[2020-10-14 08:06] VITALS: BP 105/45
[2020-10-14] MEDS ORDERED: ELIQUIS2.5 MG PO (12:46)
[2020-10-14] MEDS ORDERED: VISTARIL50 MG PO (12:47)
[2020-10-14] MEDS ORDERED: HYDROCODON-ACE1 EA10 PO (12:47)
--- NOTE | 2020-10-14 14:14 | MORECARE ---
CASE MANAGEMENT DISCHARGE SUMMARY PATIENT: THAI MOREIRA UNIT: [id number] ADM DATE: 10/13/20 AGE: 70 : 52 SEX: F ROOM/BED: D.1213 AUTHOR: GEORGIE,DOC PHYSICIAN: REFERRING PHYSICIAN: ULISES JAQUEZ DO DATE OF SERVICE: 10/14/20 Case Management Discharge Planning Summary COMMENTS ENTERED DATE: 10/14/20 14:05 CT COMMENT TYPE: Discharge Planning REVIEWER: Elizabeth Breaux CM CALLED [facility] AND PATIENT APPOINTMENT IS SET FOR Monday10/19/20 AT 1PM. ORDERED FAXED TO [facility] FOR WALKER. PATIENT TO DC TO HOME TODAY. CM TO FOLLOW AND ASSIST NEEDED. ENTERED DATE: 10/13/20 19:06 CT COMMENT TYPE: Discharge Planning REVIEWER: Quentin [facility]. CM met with patient to complete DC plan and to evaluate needs. Patient lives alone but has family and friend support. Patient stated that her home is safe and has electricity and running water. Patient stated that the home has 2 steps to enter and she manages the steps without difficulty. Patient stated that she has no problems paying for medications and she fills her medications at [facility] in [place]. Patient stated that her primary care physician is Dr. Jones. At discharge, the patient plans to return home and feels this is a safe discharge. CM discussed availability of home health, rehab services, and medical equipment. Patient declined HHS, SNF, IPR, and DME. Patient stated that she would like have outpatient therapy with [facility]. Patient stated that she has a walker and CPM. Clinical Documents faxed to [facility]. ANDREAS signed and placed on chart. Patient voiced no other needs at this time and is satisfied with DC plan. Transportation provider at discharge will be with her daughter, Judy Bender, . HINKLE delivered, explained, signed by the patient, and placed in chart. Signed form also left with the patient. CM will continue to follow and will assist as needed with dc plans/needs. DCP REVIEW SUMMARY ANTICIPATED D/C DATE: EXPECTED LOS : CASE STATUS: DCP Initiated INITIAL REVIEW: 10/13/2020 INITIAL REVIEWER: Quentin Michelle FINAL DISCHARGE DISPOSITION: : FINAL REVIEWER: FINAL REVIEW DATE: W[facility] Focus Questions & Answers DCP Evaluation QUESTION: ANSWER Patient and/or caregiver agree upon recommended discharge plan? : Yes Family / Caregiver's ability to cope with chronic illness: : a. Adequate (ability to meet patient's medical needs, ensures patient attends medical appts.) Patient's current cognitive status: : *Oriented to person, place, situation, time and present Patient's ability to cope with chronic illness : d. No chronic illness Patient gives permission to discuss discharge plans with: (name, relationship and number) : daughter, Judy Bender, Does the patient have the ability to pay for or attain post discharge needs / services? : Yes Functional screen assessment: : Basic needs can adequately be met by self Family / Caregiver's ability to cope with chronic illness: : a. Adequate (ability to meet patient's medical needs, ensures patient attends medical appts.) Physical Status: : Independent with ADL's Equipment needed for post hospitalization: : None Is there a likelihood that the patient will require additional services to return to the preadmission environment? : Yes Living Arrangements: : Home Alone with Support Patient with capacity for self-care or can be cared for in same environment as prior to hospitalization? : Yes Baseline cognitive status: : *Oriented to person, place, situation, time and present Physical environment modification needed / anticipated for discharge: : No Medication Management: : Patient states can read and understand medication labels Medication Management: : Patient states can afford medications Does Patient have transportation to get home and to follow-up medical appointments when discharged from the hospital? : Yes Would patient like to participate in any Care Coordination programs (if applicable): : Not applicable Does the patient have electricity at home? : Yes Does the patient have running water in their house? : Yes Equipment in use: : Walker - Rolling Other Equipment comments: : CPM Mental health screen: : No mental health history DCP Re-evaluation QUESTION: ANSWER Would patient like to participate in any Care Coordination programs (if applicable): : Not applicable PATIENT: THAI MOREIRA ENCOUNTER: [id number] MEDICAL RECORD#: [id number] ADMISSION DATE: 10/13/2020 DISCHARGE DATE: ATTENDING MD: ULISES RAMOS : AGE: 70 MARITAL STATUS: D DC PLAN ID: [id number] FACILITY: [facility] PRINTED ON: 10/14/20 14:13 CT All edits/amendments must be made on the electronic document DICTATION DATE: 10/14/201412 HOOK AND EYE ATTACHER: BRITTANY 10/14/201412 RPT#: [id number] DC DATE: STATUS: ADM IN [facility] [address] [place] [address] END OF REPORT
--- NOTE | 2020-10-14 16:00 | NUR ---
DISCHARGE EDUCATION PROVIDED TO PT. INFORMED PT THAT WALKER HAD BEEN ORDERED FROM [facility] AND WOULD BE DELIVERED SHORTLY. PT VOICES HAVING CPM AT HOME. DRESSING CHANGE COMPLETED AT THIS TIME. ZIP LINE INTACT TO [place]. SITE WITHOUT REDNESS, EDEMA OR DRAINAGE. EDGES WELL APPROXIMATED. MEPILEX AG APPLIED. IN TALKING WITH PT, VOICES WHEN HOME HEALTH WOULD COME TO CHANGE DRESSING. CONTACTED NEGRITA WITH CM, AND SHE WAS TO SET UP HOME HEALTH WITH [facility] FOR MONDAY. SALINE LOC TO LEFT HAND DISCONTINUED, CATH INTACT. DISCUSSED FOLLOW UP APPOINTMENTS. PT/OT APPOINTMENT IN [place]. EDUCATED PT REGARDING PRESCRIPTIONS, STRESSING THE IMPORTANCE OF ELIQUIS. PT DENIES ANY QUESTIONS OR CONCERNS AT THIS TIME.
--- NOTE | 2020-10-14 16:25 | MORECARE ---
CASE MANAGEMENT DISCHARGE SUMMARY PATIENT: THAI MOREIRA UNIT: [id number] ADM DATE: 10/13/20 AGE: 70 : 54 SEX: F ROOM/BED: D.1213 AUTHOR: GEORGIE,DOC PHYSICIAN: REFERRING PHYSICIAN: ULISES JAQUEZ DO DATE OF SERVICE: 10/14/20 Case Management Discharge Planning Summary COMMENTS ENTERED DATE: 10/14/20 16:17 CT COMMENT TYPE: Discharge Planning REVIEWER: Elizabeth Breaux [facility] WILL START CARE FOR DRESSING CHANGES MONDAY. ENTERED DATE: 10/14/20 14:05 CT COMMENT TYPE: Discharge Planning REVIEWER: Elizabeth Breaux CM CALLED [facility] AND PATIENT APPOINTMENT IS SET FOR Monday10/19/20 AT 1PM. ORDERED FAXED TO [facility] FOR WALKER. PATIENT TO DC TO HOME TODAY. CM TO FOLLOW AND ASSIST NEEDED. ENTERED DATE: 10/13/20 19:06 CT COMMENT TYPE: Discharge Planning REVIEWER: [facility]. CM met with patient to complete DC plan and to evaluate needs. Patient lives alone but has family and friend support. Patient stated that her home is safe and has electricity and running water. Patient stated that the home has 2 steps to enter and she manages the steps without difficulty. Patient stated that she has no problems paying for medications and she fills her medications at [facility] in [place]. Patient stated that her primary care physician is Dr. Jones. At discharge, the patient plans to return home and feels this is a safe discharge. CM discussed availability of home health, rehab services, and medical equipment. Patient declined HHS, SNF, IPR, and DME. Patient stated that she would like have outpatient therapy with [facility]. Patient stated that she has a walker and CPM. Clinical Documents faxed to [facility]. ANDREAS signed and placed on chart. Patient voiced no other needs at this time and is satisfied with DC plan. Transportation provider at discharge will be with her daughter, Judy Bender, . HINKLE delivered, explained, signed by the patient, and placed in chart. Signed form also left with the patient. CM will continue to follow and will assist as needed with dc plans/needs. DCP REVIEW SUMMARY ANTICIPATED D/C DATE: EXPECTED LOS : CASE STATUS: DCP Initiated INITIAL REVIEW: 10/13/2020 INITIAL REVIEWER: Quentin Michelle FINAL DISCHARGE DISPOSITION: : FINAL REVIEWER: FINAL REVIEW DATE: DCP Focus Questions & Answers DCP Evaluation QUESTION: ANSWER Patient and/or caregiver agree upon recommended discharge plan? : Yes Family / Caregiver's ability to cope with chronic illness: : a. Adequate (ability to meet patient's medical needs, ensures patient attends medical appts.) Patient's current cognitive status: : *Oriented to person, place, situation, time and present Patient's ability to cope with chronic illness : d. No chronic illness Patient gives permission to discuss discharge plans with: (name, relationship and number) : daughter, Judy Bender, Does the patient have the ability to pay for or attain post discharge needs / services? : Yes Functional screen assessment: : Basic needs can adequately be met by self Family / Caregiver's ability to cope with chronic illness: : a. Adequate (ability to meet patient's medical needs, ensures patient attends medical appts.) Physical Status: : Independent with ADL's Equipment needed for post hospitalization: : None Is there a likelihood that the patient will require additional services to return to the preadmission environment? : Yes Living Arrangements: : Home Alone with Support Patient with capacity for self-care or can be cared for in same environment as prior to hospitalization? : Yes Baseline cognitive status: : *Oriented to person, place, situation, time and present Physical environment modification needed / anticipated for discharge: : No Medication Management: : Patient states can read and understand medication labels Medication Management: : Patient states can afford medications Does Patient have transportation to get home and to follow-up medical appointments when discharged from the hospital? : Yes Would patient like to participate in any Care Coordination programs (if applicable): : Not applicable Does the patient have electricity at home? : Yes Does the patient have running water in their house? : Yes Equipment in use: : Walker - Rolling Other Equipment comments: : CPM Mental health screen: : No mental health history DCP Re-evaluation QUESTION: ANSWER Would patient like to participate in any Care Coordination programs (if applicable): : Not applicable PROVIDER NETWORKING REVIEW DATE: 10/14/2020 SERVICE TYPE: Home Health Care REVIEWER: Elizabeth Breaux PATIENT: THAI MOREIRA ENCOUNTER: [id number] MEDICAL RECORD#: [id number] ADMISSION DATE: 10/13/2020 DISCHARGE DATE: ATTENDING MD: ULISES RAMOS : AGE: 70 MARITAL STATUS: D DC PLAN ID: [id number] FACILITY: [facility] PRINTED ON: 10/14/20 16:24 CT All edits/amendments must be made on the electronic document DICTATION DATE: 10/14/201623 OPERATIONS VICE PRESIDENT: BRITTANY 10/14/201623 RPT#: [id number] DC DATE: STATUS: ADM IN [facility] [address] [place] [address] END OF REPORT
--- NOTE | 2020-10-14 16:55 | NUR ---
[facility] HERE TO DELIVER WALKER. PT THEN TAKEN OUT VIA W/C TO PRIVATE VEHICLE FOR DISCHARGE WITH ALL PERSONAL BELONGINGS
--- NOTE | 2020-10-14 18:27 | MORECARE ---
CASE MANAGEMENT DISCHARGE SUMMARY PATIENT: THAI MOREIRA UNIT: [id number] ADM DATE: 10/13/20 AGE: 70 : 52 SEX: F ROOM/BED: D.1213 AUTHOR: GEORGIE,DOC PHYSICIAN: REFERRING PHYSICIAN: ULISES JAQUEZ DO DATE OF SERVICE: 10/14/20 Case Management Discharge Planning Summary COMMENTS ENTERED DATE: 10/14/20 16:17 CT COMMENT TYPE: Discharge Planning REVIEWER: Elizabeth Breaux [facility] WILL START CARE FOR DRESSING CHANGES MONDAY. ENTERED DATE: 10/14/20 14:05 CT COMMENT TYPE: Discharge Planning REVIEWER: Elizabeth Breaux CM CALLED [facility] AND PATIENT APPOINTMENT IS SET FOR Monday10/19/20 AT 1PM. ORDERED FAXED TO [facility] FOR WALKER. PATIENT TO DC TO HOME TODAY. CM TO FOLLOW AND ASSIST NEEDED. ENTERED DATE: 10/13/20 19:06 CT COMMENT TYPE: Discharge Planning REVIEWER: [facility]. CM met with patient to complete DC plan and to evaluate needs. Patient lives alone but has family and friend support. Patient stated that her home is safe and has electricity and running water. Patient stated that the home has 2 steps to enter and she manages the steps without difficulty. Patient stated that she has no problems paying for medications and she fills her medications at [facility] in [place]. Patient stated that her primary care physician is Dr. Jones. At discharge, the patient plans to return home and feels this is a safe discharge. CM discussed availability of home health, rehab services, and medical equipment. Patient declined HHS, SNF, IPR, and DME. Patient stated that she would like have outpatient therapy with [facility]. Patient stated that she has a walker and CPM. Clinical Documents faxed to [facility]. ANDREAS signed and placed on chart. Patient voiced no other needs at this time and is satisfied with DC plan. Transportation provider at discharge will be with her daughter, Judy Bender, . HINKLE delivered, explained, signed by the patient, and placed in chart. Signed form also left with the patient. CM will continue to follow and will assist as needed with dc plans/needs. DCP REVIEW SUMMARY ANTICIPATED D/C DATE: EXPECTED LOS : CASE STATUS: DCP Initiated INITIAL REVIEW: 10/13/2020 INITIAL REVIEWER: Quentin Michelle FINAL DISCHARGE DISPOSITION: : FINAL REVIEWER: FINAL REVIEW DATE: DCP Focus Questions & Answers DCP Evaluation QUESTION: ANSWER Patient and/or caregiver agree upon recommended discharge plan? : Yes Family / Caregiver's ability to cope with chronic illness: : a. Adequate (ability to meet patient's medical needs, ensures patient attends medical appts.) Patient's current cognitive status: : *Oriented to person, place, situation, time and present Patient's ability to cope with chronic illness : d. No chronic illness Patient gives permission to discuss discharge plans with: (name, relationship and number) : daughter, Judy Bender, Does the patient have the ability to pay for or attain post discharge needs / services? : Yes Functional screen assessment: : Basic needs can adequately be met by self Family / Caregiver's ability to cope with chronic illness: : a. Adequate (ability to meet patient's medical needs, ensures patient attends medical appts.) Physical Status: : Independent with ADL's Equipment needed for post hospitalization: : None Is there a likelihood that the patient will require additional services to return to the preadmission environment? : Yes Living Arrangements: : Home Alone with Support Patient with capacity for self-care or can be cared for in same environment as prior to hospitalization? : Yes Baseline cognitive status: : *Oriented to person, place, situation, time and present Physical environment modification needed / anticipated for discharge: : No Medication Management: : Patient states can read and understand medication labels Medication Management: : Patient states can afford medications Does Patient have transportation to get home and to follow-up medical appointments when discharged from the hospital? : Yes Would patient like to participate in any Care Coordination programs (if applicable): : Not applicable Does the patient have electricity at home? : Yes Does the patient have running water in their house? : Yes Equipment in use: : Walker - Rolling Other Equipment comments: : CPM Mental health screen: : No mental health history DCP Re-evaluation QUESTION: ANSWER Would patient like to participate in any Care Coordination programs (if applicable): : Not applicable PROVIDER NETWORKING REVIEW DATE: 10/14/2020 SERVICE TYPE: Home Health Care REVIEWER: Elizabeth Breaux PATIENT: THAI MOREIRA ENCOUNTER: [id number] MEDICAL RECORD#: [id number] ADMISSION DATE: 10/13/2020 DISCHARGE DATE: 10/14/2020 ATTENDING MD: ULISES RAMOS : AGE: 70 MARITAL STATUS: D DC PLAN ID: [id number] FACILITY: [facility] PRINTED ON: 10/14/20 18:27 CT All edits/amendments must be made on the electronic document DICTATION DATE: 10/14/201826 SIDE TRIMMER: BRITTANY 10/14/201826 RPT#: [id number] DC DATE:10/14/20 STATUS: DIS IN [facility] [address] [place] [address] END OF REPORT
== END 2020-10-14 16:55 | disposition home health service (06) ==
LOC: D.OPS 09-08 11:15 → OBSVTIME 10-13 07:35 → D.SDCHOLD 10-13 07:35 → D.M3 10-13 07:35 → D.OPS 10-13 08:00 → D.SDCHOLD 10-13 08:00 → EDSTATUS 10-13 08:00 → D.OPS 10-13 08:30 → D.SDCHOLD 10-13 08:30 → D.M3 10-13 13:32
PROVIDERS: Family Medicine; ADMIT Orthopaedic Surgery; ATTEND Orthopaedic Surgery
DX: M17.12 Unilateral primary osteoarthritis, left knee (principal); E11.9 Type 2 diabetes mellitus without complications; I10 Essential (primary) hypertension; K21.9 Gastro-esophageal reflux disease without esophagitis; F41.9 Anxiety disorder, unspecified; D64.9 Anemia, unspecified; E87.5 Hyperkalemia

== ENCOUNTER 2020-12-25 06:20 | Day surgery (SDC) | payer MEDICARE, MEDICAID ==
[2020-12-24 13:15] LABS: BASOPHILS 0.5 % (0-2); EOSINOPHILS 2.2 % (0-7); HEMATOCRIT 35.1 % (36.0-48.0); HEMOGLOBIN 11.6 g/dL (12-16); LYMPHOCYTES 34.3 % (15-50); MCH 28.4 pg (26.0-34.0); MCHC 33.1 g/dL (31.0-37.0); MCV 85.9 fL (80.0-100.0); MEAN PLATELET VOLUME 7.1 fL (7.4-10.4); MONOCYTES 6.1 % (2-11); NEUTROPHILS 56.9 % (40-80); PLATELET COUNT 301 10x3/uL (130-400); RBC 4.08 10x6/uL (4.00-5.40); RDW 14.1 % (11.5-14.5); WBC 8.2 10x3/uL (4.8-10.8)
[2020-12-24 13:23] LABS: ANION GAP 13.7 mmol/L (8-16); CALCIUM 8.7 mg/dL (8.5-10.1); CARBON DIOXIDE 26.2 mmol/L (21.0-32.0); CREATININE - SERUM 0.9 mg/dL (0.6-1.3); POTASSIUM - SERUM 3.9 mmol/L (3.5-5.1)
[~2020-12-25] VITALS: Ht 162.6 cm; Wt 104.3 kg
[~2020-12-25 06:20] MED LIST changes: +CYCLOBENZAPRINE10 MG PO; +ELIQUIS2.5 MG PO; +HYDROCODONE-AC1 EAC2 PO; +LIPITOR20 MG PO; +NEURONTIN600 MG PO; +POTASSIUM CL ER 20 M PO; +TRULICITY0.75 MG/0. SQ
[2020-12-25 06:52] VITALS: BP 131/65; Ht 162.6 cm; Wt 104.3 kg
--- NOTE | 2020-12-25 10:05 | NUR ---
DISCHARGED VIA W/C, ACCOMPANIED BY [facility], TO [facility] WITH FRIEND DRIVING. ALL BELONGINGS WITH PT/FRIEND.
--- NOTE | 2020-12-25 14:17 | OP ---
PATIENT NAME: THAI MOREIRA MEDICAL RECORD: [id number] :54 LOCATION:[facility] ADMISSION DATE: SURGEON: ONEAL JAQUEZ DO DATE OF OPERATION: 12/25/2020 PROCEDURE PERFORMED: Right ring and middle finger trigger or A1 balbir release. PREOPERATIVE DIAGNOSIS: Trigger finger of the right middle and ring finger. POSTOPERATIVE DIAGNOSIS: Trigger finger of the right middle and ring finger. INDICATIONS: The patient is a 70-year-old female who has had triggering in her right middle and ring finger for quite some time and even an element of Dupuytren's contracture there. She wanted something done surgically as injections did not help. I informed her of the risks of this including recurrence, infection, bleeding, damage to nerves and vessels, need for further surgery, continued pain and she signed the consent. SURGEON: Oneal Jaquez D.O. DESCRIPTION OF PROCEDURE: The patient was taken to the operative suite, laid in supine position, given general anesthetic and 2 grams of Ancef sedated and LMA was placed. The right upper extremity was then prepped and draped in sterile fashion. A timeout was performed. Everyone was in agreement with the correct side, site, patient, and procedure. I then exsanguinated the right upper extremity with an Esmarch, tourniquet was inflated to 250 mmHg, was up for 13 minutes. I then made an incision over the distal palmar crease. I then made careful dissection down to what I did encounter was Dupuytren's fibrous tissue. I then excised that and got to the A1 balbir of the middle finger, released A1 balbir and the middle finger and then the ring finger. The flexor tendons then glided smoothly. I then let the tourniquet down and coagulated any bleeding with a bipolar injected with 0.25% Marcaine with epinephrine. Doni Frank, certified forklift operator closed with 4-0 nylon in a horizontal mattress fashion. She was then dressed with Adaptic, 4 x 4s, Kerlix and Coban lightly wrapped. She was awakened and taken to recovery in stable condition. BLOOD LOSS: Minimal. COMPLICATIONS: None. TRANSINT:[id number] Voice Confirmation ID: [id number] DOCUMENT ID: [id number] ONEAL JAQUEZ, at 1417 CC: [id number] DICTATION DATE: 12/25/20 1028 RATE EXAMINER: 12/25/20 1135 DEP SD 12/25/20 [address] [id number] [place] [address]
== END 2020-12-25 10:05 | disposition home or self-care (01) ==
LOC: D.OPS 06:20
PROVIDERS: Anesthesiology; ATTEND Orthopaedic Surgery
DX: M65.331 Trigger finger, right middle finger (principal); M65.341 Trigger finger, right ring finger; E11.9 Type 2 diabetes mellitus without complications; I10 Essential (primary) hypertension